=== PATIENT | female | born 1960 | race Caucasian/White ===

== ENCOUNTER 2023-06-13 10:31 | Outpatient (OUT) | payer BC, SELFPAY ==
--- NOTE | 2023-06-13 11:19 | PM.PRESUREVA ---
History of Present Illness History of Present Illness Chief complaint: right kidney stone Narrative: Patient presents for preadmission testing. Please see HPI from Dr. Sosa dated 06/05/2023. Review of Systems ROS Narrative Please see ROS from Dr. Sosa dated 06/05/2023. [facility] Medical History (Updated 06/13/23 @ 11:08 by Joyce Hussein NP) Surgical History (Updated 06/13/23 @ 11:08 by oJyce Hussein NP) Family History (Updated 06/13/23 @ 11:08 by Joyce Hussein NP) Other Family history of breast cancer Family history of heart disease Family history of myocardial infarction Social History (Updated 06/13/23 @ 11:04 by Joyce Hussein NP) Within the past year, how often did you have a drink containing alcohol: monthly or less Smoking status: Current every day smoker What tobacco products do you use: cigarettes Pack-years instructions: Please document either packs per day or cigarettes per day in order for pack years to calculate correctly. If using both packs per day and cigarettes per day, please make sure that they denote the same thing. If they differ, pack-years will calculate based on packs per day. Packs Per Day Cigarettes Per Day 1/4 of a pack 5 1/2 a pack 10 3/4 of a pack 15 1 pack 20 1.5 pack 30 2 packs 40 2.5 packs 50 3 packs 60 Packs per day: 1 Years smoked: 45 Smoking pack-years: 45.00 Non-prescribed substance use: denies use Previous occupational history: [employer] Highest level of school completed/degree received: high school graduate Meds Home Medications and Allergies Home Medications Medication Instructions Recorded Confirmed Type calcium 100 mg capsule mg PO 06/13/23 History cholecalciferol (vitamin D3) 10 10 mcg PO DAILY 06/13/23 06/13/23 History mcg (400 unit) capsule hydrochlorothiazide 12.5 mg capsule 12.5 mg PO QDAY 06/13/23 06/13/23 History krill oil 500 mg capsule mg PO 06/13/23 History multivitamin (Daily Multi-Vitamin 1 tab PO DAILY 06/13/23 06/13/23 History tablet) Allergies Allergy/AdvReac Type Severity Reaction Status Date / Time No Known Drug Allergies Allergy Verified 06/13/23 11:01 Exam Narrative Exam Narrative: Constitutional: Awake, alert, comfortable, well-appearing, nontoxic, interactive, vital signs as charted Head: Normocephalic, atraumatic Neck: Supple, normal appearance, normal range of motion, no meningeal signs, no lymphadenopathy Respiratory: No respiratory distress, breath sounds clear Cardiovascular: Regular rate and rhythm, strong and regular heart tones Abdomen: Nontender, normal bowel sounds, soft, no CVA tenderness Musculoskeletal: Normal gait, no swelling or edema Skin: No rashes or induration, no lesions, only visible skin inspected Neuro: No neurological deficits, normal sensation Psychiatric: Oriented ?3, normal affect Assessment and Plan Assessment and Plan (1) Kidney stones: Plan Right ESWL scheduled with Dr. Sosa 06/20/2023.
[2023-06-13 11:31] LABS: Basophils Absolute Auto 0.1 10^3/uL (0.0-0.1); Basophils Percent Auto 0.8 % (0.2-2.0); Eosinophils Absolute Auto 0.1 10^3/uL (0.0-0.7); Eosinophils Percent Auto 1.3 % (0.9-7.0); Hemoglobin 15.6 g/dL (12.0-16.0); Immature Granulocytes Abs Auto 0.05 10^3/uL (0.00-0.03); Immature Granulocytes Pct Auto 0.5 % (0.0-0.5); Lymphocytes Absolute Auto 1.6 10^3/uL (1.2-3.8); Lymphocytes Percent Auto 16.8 % (20.5-60.0); Mean Corpuscular HGB Conc 33.9 g/dL (29.9-35.2); Mean Corpuscular Hemoglobin 31.5 pg (26.7-34.0); Mean Corpuscular Volume 92.9 fL (81.0-99.0); Mean Platelet Volume 10.1 fL (9.5-13.5); Monocytes Absolute Auto 0.6 10^3/uL (0.3-0.8); Monocytes Percent Auto 5.9 % (1.7-12.0); Neutrophils Percent Auto 74.7 % (43.0-75.0); Platelet Count 303 10^3/uL (150-450); Red Blood Count 4.95 10^6/uL (4.20-5.40); Red Cell Distribution Width 11.9 % (11.0-15.0); White Blood Count 9.3 10^3/uL (4.0-11.0)
[2023-06-13 11:46] LABS: INR 0.97; Prothrombin Time 10.3 sec (9.0-11.6)
[2023-06-13 13:11] LABS: Anion Gap 15.4; BUN Creatinine Ratio 29.3; Calcium 9.8 mg/dL (8.5-10.1); Chloride 99 mmol/L (98-107); Estimated GFR (African America >60 (>=60); Estimated GFR (Non-African Ame >60 (>=60); Glucose 86 mg/dL (74-106); Potassium 4.4 mmol/L (3.5-5.1); Sodium 137 mmol/L (136-145)
== END 2023-06-13 10:32 | disposition home or self-care (01) ==
LOC: PST 10:32
PROVIDERS: Visit Provider Urology
DX: Z01.812 Encounter for preprocedural laboratory examination (principal); N20.0 Calculus of kidney; I95.9 Hypotension, unspecified
CPT/HCPCS: 36415; 80048; 85025; 85610; 85730; G0463

== ENCOUNTER 2023-06-20 12:34 | Observation (INO) | payer BC, SELFPAY ==
[2023-06-13 11:17] VITALS: BP 110/71; PULSE 74; RESP 16; TEMP 36.4; O2SAT 98; BMI 21.3
[2023-06-20] VITALS (25 sets, daily range): BP systolic 100–127; BP diastolic 58–78; PULSE 42–78; RESP 12–24; TEMP 35.9–36.7; O2SAT 94–100; BMI 21.6; BMI 22.3
--- NOTE | 2023-06-20 07:15 | XR_ITS ---
The [address] [address] Patient Name: KE HOGAN MRN: [id number] date: 1960 Sex: F Assigned Patient Location: [facility] Current Patient Location: [facility] Accession/Order Number: [id number] Exam Date: 06/20/2023 07:36 Report Date: 06/20/2023 08:56 At the request of: TAYO TAPIA Procedure: XR abdomen 1V EXAMINATION: XR abdomen 1V HISTORY: kidney stones COMPARISON: No relevant comparison available. FINDINGS: KIDNEY/URETER - RIGHT: A few small calcifications suspected within inferior pole. KIDNEY/URETER - LEFT: A few tiny calcifications suspected within mid body and inferior pole. PELVIS: Multiple pelvic calcifications which are compatible with phleboliths; a distal ureteral stone cannot be completely excluded. Large central calcification favoring a uterine leiomyoma. BOWEL: No abnormal dilation or deviation. BONES: No acute abnormality. OTHER: Negative. No abnormal gaseous collections. XR/XR abdomen 1V IMPRESSION: 1. Suspect bilateral nephrolithiasis. Evaluation is slightly limited by overlying bowel content. 2. Pelvic calcifications favor phleboliths and a calcified uterine leiomyoma. A distal ureteral stone cannot be completely excluded. 3. No comparison studies. Electronically authenticated by: MYRON ROSS Date: 06/20/2023 08:56
[2023-06-20] MEDS: LACTATED RINGER'S SOLUTION 1,000 ML 50 ML IV (08:16)
[2023-06-20] MEDS: CEFAZOLIN SODIUM/DEXTROSE,ISO 1 GM/50 ML IV.SOLN IV (08:31)
--- NOTE | 2023-06-20 09:36 | P.URON_ITS ---
Urology Surgery Operative Note Operative Note Procedure Date: 06/20/23 Time Out Performed: yes Pre-op Diagnosis: right nephrolithiasis Post-op Diagnosis: same as pre-op Procedures performed: 1. Right ESWL. Anesthesia: General-LMA Primary Surgeon: Carmine Sosa Complications: none Estimated blood loss (mL): 0 Findings: right-sided lower pole stone with excellent fragmentation. initial brief run of ventricular tachycardia Intra-Op. Specimens: non- Indications for Procedures: this lady has right sided nephrolithiasis which is nonobstructing. It is about an 8 mm stone burden. She now presents for right ESWL. She has signed an informed consent for this procedure after risks were explained. Some of these risks include bleeding, perinephric hematoma, infection and anesthesia to name a few. Detailed description of Procedure: The patient was brought to the Operating Room and placed on Siemens electromagnetic lithotripsy treatment table in the supine position. SCDs were placed on their lower extremities and turned on and functioning during the entire case. Timeout was done by all parties in the room. We all agreed upon the patient's identification and the planned procedures for this patient. General Anesthesia was then administered via LMA. Treatment head was then brought to the patient's correct side. While using flourscopy the stone was identified and lined up into the crosshairs. We then began applying shocks.we started at power level II.0 and increased to maximum power level of 3.2. Within the 1st 500 shocks, the patient developed some PVCs and then a brief run of ventricular tachycardia. The procedure was stopped. Her position on the table was rotated a bit. She was given some IV lidocaine. We then restarted the proce dure and she had no more ventricular tachycardia. we decided it was not necessary to gait the procedure. Intermittent fluoroscopy showed that the stone steadily fragmented. We applied a total of 3000 shocks to this right renal stone and had excellent fragmentation. The procedure was then terminated. She was then transferred to a [facility] bed and wheeled to PACU in stable condition.
--- NOTE | 2023-06-20 10:03 | PC.NURSE ---
redness to right flank
--- NOTE | 2023-06-20 10:08 | ECG_ITS ---
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
--- NOTE | 2023-06-20 10:08 | CA_ITS ---
Patient: KE HOGAN Exam Date: 06/20/2023 : 1960 Gender:F Ordering : NAN CANTOR Admission #: [id number] Family : ANGELITA RIZO . Order #: [id number] CLICK HERE TO VIEW EXAM ECHOCARDIOGRAM REPORT PROCEDURE: CA ECHO DOPPLER COMPLETE INDICATIONS: Episode of Ventricular tachycardia, smoker COMPARISON: None. DESCRIPTION: COMPLETE ECHOCARDIOGRAM Real-time transthoracic echocardiography with 2D, M-mode, spectral and color flow Doppler performed. QUALITY: Technical quality was good. LEFT VENTRICLE: Normal chamber size. Normal left ventricular wall thickness. Normal systolic function. LV EF: Normal left ventricular ejection fraction, (>55%). DIASTOLIC: Normal diastolic function. ATRIAL SEPTUM: LEFT ATRIUM: Normal chamber size. RIGHT ATRIUM: Mild dilatation. RIGHT VENTRICLE: Normal chamber size. Normal right ventricular systolic function. TRICUSPID VALVE: Normal mobility and thickness. No stenosis with trivial regurgitation. No evidence of pulmonary hypertension. RVSP 33 mmHg MITRAL VALVE: Mildly thickened with normal mobility. No evidence of mitral valve stenosis. There is no mitral annular calcification. Trivial mitral regurgitation. AORTIC VALVE: Normal trileaflet appearance. No visible sclerosis. Normal leaflet mobility. No evidence of aortic valve stenosis. No aortic regurgitation. AORTIC ROOT: Normal diameter and appearance. PULMONIC VALVE: Normal thickness and mobility. No stenosis. No regurgitation. PERICARDIUM: No evidence of pericardial effusion. IVC: Partial collapse with inspirations. IVC is normal in size. PLEURA: CONCLUSION: 1. Normal ventricular function. LVEF is 55 to 60%. 2. No significant valvular dysfunction. 3. Normal right-sided pressures. 4. No pericardial effusion. Adult Echocardiography Procedure Report Left Ventricle LVEDD (3.7 - 5.6 cm): 4.00 cm LVESD (2.2 - 4.0 cm): 2.28 cm LVIVS thickness (0.6 - 1.2 cm): 0.63 cm LVPW thickness (0.5 - 1.0 cm): 0.70 cm e': 0.13 m/s E - e': 6.87 LVOT Max Gradient: 5.73 mm[Hg] LVOT Area (cm2): 1.20 m/s Peak Velocity (LVOT): 1.20 m/s Mean Velocity (LVOT): 0.79 m/s LVOT Diameter 1.98 cm Left Atrium LA Volume Index (2D A2C): 29.52 ml/m2 Left Atrium Systolic Dimension: 2.24 cm Mitral Valve MV E to A Ratio: 1.22 Mitral Valve A-Wave Peak Velocity: 0.72 m/s Mitral Valve E-Wave Peak Velocity: 0.88 m/s Right Ventricle Aorta AO Root Diam: 2.56 cm Aortic Valve AoV Area (Peak Stanislav): 2.07 cm2, 2.07 cm2 AoV Area (VTI): 1.95 cm2, 1.95 cm2 Peak Velocity(Antegrade Flow): 1.77 m/s Peak Gradient(Antegrade Flow): 12.59 mm[Hg] Mean Velocity(Antegrade Flow): 1.15 m/s Mean Gradient(Antegrade Flow): 6.36 mm[Hg] Velocity Time Integral: 39.99 cm Tricuspid Valve Peak Velocity (Regurgitant Flow): 2.48 m/s Pulmonic Valve Peak Velocity: 0.85 m/s Peak Gradient: 3.60 mm[Hg], 2.21 mm[Hg] Right Atrium Right Atrium Systolic Pressure: 50.93 ml, 50.93 ml Dictated by: Michele Alvarez M.D. on 06/20/2023 at 18:18 Approved by: Michele Alvarez M.D. on 06/20/2023 at 18:20
--- NOTE | 2023-06-20 10:12 | PC.NURSE ---
Denies chest pain, SOB OR OTHER DISCOMFORT
--- NOTE | 2023-06-20 10:15 | PC.NURSE ---
CAKE FORMER PRESENT and speaks with pt and her
--- NOTE | 2023-06-20 10:19 | PC.NURSE ---
Denies chest pain, SOB or other discomfort
--- NOTE | 2023-06-20 10:25 | PC.NURSE ---
Denies chest pain, SOB or other discomfort
--- NOTE | 2023-06-20 10:28 | PC.NURSE ---
denies chest pain, SOB or other discomfort
[2023-06-20 10:46] LABS: Anion Gap 10.2; BUN Creatinine Ratio 25.4; Calcium 8.9 mg/dL (8.5-10.1); Carbon Dioxide 30.8 mmol/L (21.0-32.0); Chloride 105 mmol/L (98-107); Estimated GFR (African America >60 (>=60); Estimated GFR (Non-African Ame >60 (>=60); Glucose 92 mg/dL (74-106); Sodium 142 mmol/L (136-145)
[2023-06-20 10:47] LABS: Magnesium 1.9 mg/dL (1.8-2.4)
[2023-06-20 10:56] LABS: Troponin I High Sensitivity 9.4 pg/mL (4.0-51.3)
--- NOTE | 2023-06-20 11:36 | ECG_ITS ---
The [facility] Test Date: 2023-06-20 Pat Name: KE HOGAN Department: Room: [facility] Gender: Female Advocacy Director: : 1960 Requested By: [id number] Order Number: [id number] Reading MD: MARY JO VENTURA Measurements Intervals [place] Rate: 54 P: 73 [place]: 163 QRS: 77 QRSD: 85 T: 51 QT: 421 QTc: 403 Interpretive Statements SINUS BRADYCARDIA WARNING: DATA QUALITY MAY AFFECT INTERPRETATION Compared to ECG 06/20/2023 10:30:15 No significant changes Electronically Signed On 06-21-2023 7:23:01 EDT by MARY JO VENTURA
[2023-06-20 12:15] LABS: Magnesium 2.1 mg/dL (1.8-2.4)
--- NOTE | 2023-06-20 13:23 | P.HP_ITS ---
H&P: HPI History of Present Illness Chief complaint: RIGHT KIDNEY STONE Narrative: patient is a 62-year-old female with past medical history of recurrent kidney stones. Patient reports approximately four days ago she was on an antibiotic for a week for a urinary tract infection. She was also started on hydrochlorothiazide for diuretic prior to procedure.today patient underwent a right ESWL under general anesthesia by Dr. Sosa. Per anesthesia there was a brief run of ventricular tachycardia, this was also recorded in the intraoperative note by Dr. Sosa. Tachycardia began after applying shocks to the stone, patient developed PVCs and a brief run of ventricular tachycardia, the procedure was stopped, the table was rotated and patient was given IV lidocaine. The tachycardia resolved and procedure was restarted. also per information the patient was quite hypotensive during the case, came to the PACU with bradycardia with heart rate in the 50s. Decision was then made to consult cardiology for further plan of care. Cardiology did come to the PACUto evaluate the patient and was suggested that she be admitted overnight for observation. Patient then was transferred to [facility] for observation. I went to evaluate the patient postoperatively in Medr unit, she denies any current issues. Patient is fully alert denies any chest pain heart palpitations reports she has no prior history of heart issues. 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 She has had several kidney stones in the past that required surgical intervention but had no other issues to report. She was on an antibiotic of which is unnamed (she can't remember what that was) stopped approximately 3-4 days prior to the procedure. She also started hydrochlorothiazide, she takes a vitamin D supplement is a nonsmoker and otherwise healthy. Review of Systems ROS Narrative ROS: a complete review of systems were reviewed with patient and are positive as below or listed in History of Chief Complaint. General: no fever, chills, night sweats Head: no headache, trauma, visual changes, nausea or vomiting Skin: no reported rashes, itching or sores Eyes: no blurriness of vision Ears: no reported hearing loss, vertigo, earache, or tinnitus Throat: no sore throat, hoarseness, swelling of neck, or tongue pain Heart: no chest pain Lungs: no shortness of breath or cough GI: no diarrhea or vomiting/nausea Urinary: no urinary urgency, frequency or pain Neuro: no numbness or tingling HEM: no bleeding issues or bruising ENDO: no thyroid problems Psych: no anxiety or depression PFSH PFSH Medical History (Updated 06/20/23 @ 13:33 by Samantha Justin DO) Surgical History Family History Other Family history of breast cancer Family history of heart disease Family history of myocardial infarction Social History Within the past year, how often did you have a drink containing alcohol: monthly or less Smoking status: Current every day smoker What tobacco products do you use: cigarettes Pack-years instructions: Please document either packs per day or cigarettes per day in order for pack years to calculate correctly. If using both packs per day and cigarettes per day, please make sure that they denote the same thing. If they differ, pack- years will calculate based on packs per day. Packs Per Day Cigarettes Per Day 1/4 of a pack 5 1/2 a pack 10 3/4 of a pack 15 1 pack 20 1.5 pack 30 2 packs 40 2.5 packs 50 3 packs 60 Packs per day: 1 Years smoked: 45 Smoking pack-years: 45.00 Non-prescribed substance use: denies use Previous occupational history: [employer] Highest level of school completed/degree received: high school graduate Do you think of yourself as: straight/heterosexual Gender Identity: female Meds Home Medications and Allergies Home Medications Medication Instructions Recorded Confirmed Type calcium 100 mg capsule 100 mg PO QDAY 06/13/23 06/20/23 History cholecalciferol (vitamin D3) 10 10 mcg PO DAILY 06/13/23 06/20/23 History mcg (400 unit) capsule hydrochlorothiazide 12.5 mg capsule 12.5 mg PO QDAY 06/13/23 06/20/23 History krill oil 500 mg capsule 500 mg PO QDAY 06/13/23 06/20/23 History multivitamin (Daily Multi-Vitamin 1 tab PO DAILY 06/13/23 06/20/23 History tablet) Allergies Allergy/AdvReac Type Severity Reaction Status Date / Time No Known Drug Allergies Allergy Verified 06/13/23 11:01 Exam Narrative Exam Narrative: General: Patient is alert, and oriented to person, place and time with normal affect, proper hygiene Skin: no visible rashes, or ulcers Head: atraumatic, acephalic Eyes: PERRLA, no nystagmus present, conjunctiva clear, no scleral icterus Ears: normal gross auditory acuity Nose: symmetric, no discharge, no maxillary or frontal sinus tenderness Mouth/Throat: no erythema, exudate, or tonsillar enlargement, normal dentition Neck: no masses palpated, normal thyroid, no JVD or audible carotid bruits Heart: Normal rate and rhythm, no murmurs/rubs/gallops Lungs: no audible wheezes, crackles and normal breath sounds all lung hassan Abdomen: Normal audible bowel sounds, no distension, No palpable masses, no organomegaly, no rebound/guarding/ or rigidity Musculoskeletal: ROM is limited due to being in hospital bed, no swelling bilateral lower extremities Vascular: Normal carotid, radial, femoral, posterior tibial, and dorsalis pedis pulses Lymph: no supraclavicular, axillary, or anterior/posterior cervical adenopathy Neuro: CN II-X grossly intact, normal sensation upper and lower extremities Constitutional Vital Signs, click to edit/add: Last Vital Signs Temp 98.0 F 06/20/23 12:17 Pulse 56 L 06/20/23 12:17 Resp 18 06/20/23 12:17 BP 127/76 06/20/23 12:17 Pulse Ox 97 06/20/23 12:17 O2 Del Method Room Air 06/20/23 12:17 Results Labs Labs: [facility] 06/20/23 10:18 Sodium 142 Potassium 4.0 Chloride 105 Carbon Dioxide 30.8 BUN 16.0 Creatinine 0.63 Glucose 92 Calcium 8.9 Assessment and Plan Assessment and Plan (1) Tachycardia with heart rate 100-120 beats per minute: Assessment and Plan: cardiology will be consulted for further workup and input, echocardiogram, CBC CMP phosphorus and magnesium as well as thyroid labs will be checked.EKGs ?2 both showed sinus bradycardia with heart rate in the 50s, troponins will also be checked 1st one was normal range. Patient will need a Holter monitor, and close outpatient follow-up. could be from persistent hypotension, right ESWL but have to exclude [place] cause (2) Hypotension: Assessment and Plan: will provide IVF until eating and drinking normally, hold hctz (3) S/P extracorporeal shock wave therapy: Assessment and Plan: pain management and restrictions managed by Urology (4) Kidney stones: Plan patient is a full code admitted to telemetry in observation for further plan of care and cardiology evaluation.
[2023-06-20 14:19] LABS: Troponin I High Sensitivity 9.7 pg/mL (4.0-51.3)
[2023-06-20] MEDS: LACTATED RINGER'S SOLUTION 1,000 ML 125 ML IV ×2 (15:24→23:09)
--- NOTE | 2023-06-20 15:55 | PM.CACN ---
History of Present Illness History of Present Illness Consult date: 06/20/23 Requesting physician: Carmine Sosa Chief complaint: Intraoperative VT Narrative: Ms. Rios is a 62-year-old female with past medical history of recurrent kidney stones. Patient underwent a right ESWL under general anesthesia by Dr. Sosa, and per report, there was a was a brief run of ventricular tachycardia. Tachycardia began after applying shocks to the stone, patient developed PVCs and a brief run of ventricular tachycardia, the procedure was stopped, the table was rotated and patient was given IV lidocaine. The tachycardia resolved and procedure was restarted. Patient was also reportedly bradycardic and hypotensive following event. Cardiology was asked to evaluate patient. Patient was evaluated in PACU. She adamantly denies any cardiac complaints or concerns. She denies any chest pain or shortness of breath. She denies any lower extremity edema, orthopnea, or PND. She denies any near syncope or syncope. Patient denies any previous cardiac history. No history of arrythmia. No history of CAD, PVD, or SC. No history of CHF. She is very functional and denies any exertional sytmpoms. Of note: no strip of arrythmia was available for my review. Review of Systems ROS Status of ROS 10 or more systems reviewed and unremarkable except as noted in history and below [facility] Medical History (Updated 06/20/23 @ 13:33 by Samantha Justin DO) Surgical History Family History Other Family history of breast cancer Family history of heart disease Family history of myocardial infarction Social History Within the past year, how often did you have a drink containing alcohol: monthly or less Smoking status: Current every day smoker What tobacco products do you use: cigarettes Pack-years instructions: Please document either packs per day or cigarettes per day in order for pack years to calculate correctly. If using both packs per day and cigarettes per day, please make sure that they denote the same thing. If they differ, pack-years will calculate based on packs per day. Packs Per Day Cigarettes Per Day 1/4 of a pack 5 1/2 a pack 10 3/4 of a pack 15 1 pack 20 1.5 pack 30 2 packs 40 2.5 packs 50 3 packs 60 Packs per day: 1 Years smoked: 45 Smoking pack-years: 45.00 Non-prescribed substance use: denies use Previous occupational history: [employer] Highest level of school completed/degree received: high school graduate Do you think of yourself as: straight/heterosexual Gender Identity: female Meds Home Medications and Allergies Home Medications Medication Instructions Recorded Confirmed Type calcium 100 mg capsule 100 mg PO QDAY 06/13/23 06/20/23 History cholecalciferol (vitamin D3) 10 10 mcg PO DAILY 06/13/23 06/20/23 History mcg (400 unit) capsule hydrochlorothiazide 12.5 mg capsule 12.5 mg PO QDAY 06/13/23 06/20/23 History krill oil 500 mg capsule 500 mg PO QDAY 06/13/23 06/20/23 History multivitamin (Daily Multi-Vitamin 1 tab PO DAILY 06/13/23 06/20/23 History tablet) Allergies Allergy/AdvReac Type Severity Reaction Status Date / Time No Known Drug Allergies Allergy Verified 06/13/23 11:01 Exam Constitutional Vital Signs, click to edit/add: Last Vital Signs Temp 98 F 06/20/23 14:45 Pulse 70 06/20/23 15:51 Resp 14 06/20/23 14:45 BP 115/67 06/20/23 14:45 Pulse Ox 98 06/20/23 14:45 O2 Del Method Room Air 06/20/23 14:45 Documenting provider has reviewed patient's vital signs: yes Common normals: no apparent distress, average body habitus, oriented x3 and healthy appearing Orientation/consciousness: Yes awake and Yes oriented to person [facility] Common normals: normocephalic Head and scalp: atraumatic Nose: external nose normal External ear: external ears normal Respiratory Common normals: normal respiratory effort, no use of accessory muscles and clear to auscultation bilaterally Cardio Common normals: no JVD, regular rate, regular rhythm, S1 normal heart sound, S2 normal heart sound, no gallops and no murmurs Rate: regular rate Rhythm: regular rhythm GI Common normals: Normal to inspection, nondistended, normoactive bowel sounds present and soft to palpation Extremity Common normals: normal to inspection and no clubbing, cyanosis or edema Neuro Common normals: oriented x3, moves all extremities and no focal motor deficits Results Labs and Meds Lab results: Comprehensive Metabolic Panel 06/20/23 Range/Units 10:18 Sodium 142 (136-145) mmol/L Potassium 4.0 (3.5-5.1) mmol/L Chloride 105 (98-107) mmol/L Carbon Dioxide 30.8 (21.0-32.0) mmol/L BUN 16.0 (7.0-18.0) mg/dL Creatinine 0.63 (0.55-1.02) mg/dL Glucose 92 (74-106) mg/dL Calcium 8.9 (8.5-10.1) mg/dL Intake and Output 06/19/23 06/20/23 06/20/23 23:59 07:59 15:59 Intake Total 2100 / 2100 Output Total 300 / 300 Balance 1800 / 1800 Intake: Other 1050 / 1050 IV 1050 / 1050 Cefazolin Sodium/Dextrose,Iso 1 50 / 50 gm In 50 ml @ 100 mls/hr IV ONCE ONE Rx#:[id number] Lactated Ringer's Solution 1, 1000 / 1000 000 ml @ 50 mls/hr IV ONCE ONE Rx#:[id number] Output: Urine 300 / 300 Other: Weight 59 kg 60.781 kg Patient Weight 06/21/23 07:59 Weight 60.781 kg Imaging and Cardiology Echo: pending Assessment and Plan Assessment and Plan (1) Tachycardia with heart rate 100-120 beats per minute: (2) Hypotension: (3) S/P extracorporeal shock wave therapy: (4) Kidney stones: Plan -STAT BMP, magnesium level to rule out electorlyte abnormality -Would recommend overnight observation to ensure no recurrence of arrythmia. Continuous cardiac telemetry. -Echo to assess LVEF, wall motion, and valvular function -Trend Troponins x 3 to rule out ischemia -Please discuss with cardiology pending results of testing -Consider 30 day event monitor at the time of discharge to rule out reccurent arrythmia Thank you for allowing us to participate in the care of this patient. Please do not hesitate to contact us with any quesitons. Nan Cantor MD [place] [facility]
[2023-06-20 16:35] LABS: Troponin I High Sensitivity 7.9 pg/mL (4.0-51.3)
[2023-06-20 19:02] LABS: Troponin I High Sensitivity 6.6 pg/mL (4.0-51.3)
[2023-06-21] VITALS (7 sets, daily range): BP systolic 113; BP diastolic 68; PULSE 51–62; RESP 18; TEMP 36.8; O2SAT 97
[2023-06-21 05:08] LABS: Basophils Absolute Auto 0.1 10^3/uL (0.0-0.1); Basophils Percent Auto 0.4 % (0.2-2.0); Eosinophils Absolute Auto 0.1 10^3/uL (0.0-0.7); Hematocrit 38.7 % (36.0-48.0); Hemoglobin 12.8 g/dL (12.0-16.0); Immature Granulocytes Abs Auto 0.07 10^3/uL (0.00-0.03); Immature Granulocytes Pct Auto 0.6 % (0.0-0.5); Lymphocytes Absolute Auto 1.8 10^3/uL (1.2-3.8); Lymphocytes Percent Auto 14.4 % (20.5-60.0); Mean Corpuscular HGB Conc 33.1 g/dL (29.9-35.2); Mean Corpuscular Hemoglobin 31.7 pg (26.7-34.0); Mean Corpuscular Volume 95.8 fL (81.0-99.0); Mean Platelet Volume 10.6 fL (9.5-13.5); Monocytes Absolute Auto 0.9 10^3/uL (0.3-0.8); Monocytes Percent Auto 6.9 % (1.7-12.0); Neutrophils Absolute Auto 9.5 10^3/uL (1.4-6.5); Neutrophils Percent Auto 76.7 % (43.0-75.0); Platelet Count 253 10^3/uL (150-450); Red Blood Count 4.04 10^6/uL (4.20-5.40); Red Cell Distribution Width 11.7 % (11.0-15.0); White Blood Count 12.4 10^3/uL (4.0-11.0)
[2023-06-21 05:51] LABS: Alanine Aminotransferase 24 U/L (14-59); Alkaline Phosphatase 56 U/L (46-116); Anion Gap 7.1; Aspartate Amino Transferase 20 U/L (15-37); BUN Creatinine Ratio 30.9; Bilirubin Total 0.2 mg/dL (0.2-1.0); Calcium 8.6 mg/dL (8.5-10.1); Carbon Dioxide 28.9 mmol/L (21.0-32.0); Chloride 108 mmol/L (98-107); Estimated GFR (African America >60 (>=60); Estimated GFR (Non-African Ame >60 (>=60); Globulin 2.4 g/dL; Glucose 104 mg/dL (74-106); Phosphorus 4.3 mg/dL (2.6-4.7); Sodium 140 mmol/L (136-145); Thyroid Stimulating Hormone 0.247 uIU/mL (0.358-3.740); Total Protein 5.4 g/dL (6.4-8.2)
[2023-06-21 06:03] LABS: Albumin Globulin Ratio 1.3
--- NOTE | 2023-06-21 10:17 | SWNOTE1 ---
SW provided pt and with a list of PCP's in the [place] area. SW encouraged pt to call and see who is taking patient's. Pt and would like to do some research on physicians at home and then they will decide. SW to follow as needed.
--- NOTE | 2023-06-21 10:26 | P.DS_ITS ---
DS: Providers Provider Date of admission: 06/20/23 12:34 Primary care physician: Non-Staff Physician, Attending physician on admission: Samantha Justin Consults: 06/20/23 12:34 Consult to Cardiology Routine Consulting Provider: Hospitalist Reason for consultation: tachycardia Has provider been notified: Yes Discharging clinician: Samantha Justin DS: Diagnosis Discharge Diagnosis (1) Tachycardia with heart rate 100-120 beats per minute: (2) Hypotension: (3) S/P extracorporeal shock wave therapy: (4) Kidney stones: DS: Summary Hospital Course Hospital Course: patient is a 62-year-old female with past medical history of recurrent kidney stones. Patient reports approximately four days ago she was on an antibiotic for a week for a urinary tract infection. She was also started on hydrochlorothiazide for diuretic prior to procedure.today patient underwent a right ESWL under general anesthesia by Dr. Sosa. Per anesthesia there was a brief run of ventricular tachycardia, this was also recorded in the intraoperative note by Dr. Sosa. Tachycardia began after applying shocks to the stone, patient developed PVCs and a brief run of ventricular tachycardia, the procedure was stopped, the table was rotated and patient was given IV lidocaine. The tachycardia resolved and procedure was restarted. also per information the patient was quite hypotensive during the case, came to the PACU with bradycardia with heart rate in the 50s. Decision was then made to consult cardiology for further plan of care. Cardiology did come to the PACUto evaluate the patient and was suggested that she be admitted overnight for observation. Patient then was transferred to [facility] for observation. I went to evaluate the patient postoperatively in MedSur unit, she denies any current issues. Patient is fully alert denies any chest pain heart palpitations reports she has no prior history of heart issues. 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 She has had several kidney stones in the past that required surgical intervention but had no other issues to report. She was on an antibiotic of which is unnamed (she can't remember what that was) stopped approximately 3-4 days prior to the procedure. She also started hydrochlorothiazide, she takes a vitamin D supplement is a nonsmoker and otherwise healthy. Echo results were normal, No events on telemetry overnight. Electrolytes look great, troponins normal range. She is doing well this morning no issues. I will have her stop the hctz, this may be contributing more to her hypotension. She will follow up in cardiology clinic for 30 day event monitor per note, also encouraged her to find a PCP to recheck thyroid levels in a few weeks. Patient discharged home today in stable condit ion. Status at Discharge Functional status at discharge: independent ambulation Overall status at discharge: patient is back to baseline Time Spent with Patient Time attestation: Total time spent providing and/or coordinating discharge services: Exam Narrative Exam Narrative: General: Patient is alert, and oriented to person, place and time with normal affect, proper hygiene Skin: no visible rashes, or ulcers Head: atraumatic, acephalic Eyes: PERRLA, no nystagmus present, conjunctiva clear, no scleral icterus Neck: no masses palpated, normal thyroid, no JVD or audible carotid bruits Heart: Normal rate and rhythm, no murmurs/rubs/gallops Lungs: no audible wheezes, crackles and normal breath sounds all lung hassan Abdomen: Normal audible bowel sounds, no distension, No palpable masses, no organomegaly, no rebound/guarding/ or rigidity Musculoskeletal: muscle atrophy noted, ROM is limited due to being in hospital bed, no swelling bilateral lower extremities Vascular: Normal carotid, radial, femoral, posterior tibial, and dorsalis pedis pulses Lymph: no supraclavicular, axillary, or anterior/posterior cervical adenopathy Neuro: CN II-X grossly intact, normal sensation upper and lower extremities Constitutional Vital Signs, click to edit/add: Last Vital Signs Temp 98.2 F 06/21/23 05:07 Pulse 62 06/21/23 10:07 Resp 18 06/21/23 07:49 BP 113/68 06/21/23 05:07 Pulse Ox 97 06/21/23 05:07 O2 Del Method Room Air 06/21/23 05:07 DS: Data Data Completed and Pending Labs on day of discharge: Labs from last 24 hours 06/21/23 06/20/23 06/20/23 04:34 18:20 16:10 WBC 12.4 H RBC 4.04 L Hgb 12.8 Hct 38.7 MCV 95.8 MCH 31.7 MCHC 33.1 RDW 11.7 Plt Count 253 MPV 10.6 Neut % (Auto) 76.7 H Lymph % (Auto) 14.4 L Wise % (Auto) 6.9 Eos % (Auto) 1.0 Baso % (Auto) 0.4 Neut # (Auto) 9.5 H Lymph # (Auto) 1.8 Wise # (Auto) 0.9 H Eos # (Auto) 0.1 Baso # (Auto) 0.1 Abs Immat Gran (auto) 0.07 H Imm/Tot Granulo (auto) 0.6 H Sodium 140 Potassium 4.0 Chloride 108 H Carbon Dioxide 28.9 Anion Gap 7.1 BUN 21.0 H Creatinine 0.68 Est GFR ( Amer) >60 Est GFR (Non-Af Amer) >60 BUN/Creatinine Ratio 30.9 Glucose 104 Calcium 8.6 Phosphorus 4.3 Magnesium Total Bilirubin 0.2 AST 20 ALT 24 Alkaline Phosphatase 56 Troponin I High Sens 6.6 7.9 Total Protein 5.4 L Albumin 3.0 L Globulin 2.4 Albumin/Globulin Ratio 1.3 TSH 0.247 L 06/20/23 06/20/23 06/20/23 13:40 11:59 10:18 WBC RBC Hgb Hct MCV MCH MCHC RDW Plt Count MPV Neut % (Auto) Lymph % (Auto) Wise % (Auto) Eos % (Auto) Baso % (Auto) Neut # (Auto) Lymph # (Auto) Wise # (Auto) Eos # (Auto) Baso # (Auto) Abs Immat Gran (auto) Imm/Tot Granulo (auto) Sodium 142 Potassium 4.0 Chloride 105 Carbon Dioxide 30.8 Anion Gap 10.2 BUN 16.0 Creatinine 0.63 Est GFR ( Amer) >60 Est GFR (Non-Af Amer) >60 BUN/Creatinine Ratio 25.4 Glucose 92 Calcium 8.9 Phosphorus Magnesium 2.1 1.9 Total Bilirubin AST ALT Alkaline Phosphatase Troponin I High Sens 9.7 9.4 Total Protein Albumin Globulin Albumin/Globulin Ratio TSH Discharge Plan Discharge Disposition: Home, Self-Care Condition: Good Discharge Medications: Continued calcium 100 mg capsule 100 mg PO QDAY multivitamin [Daily Multi-Vitamin] Tablet 1 tab PO DAILY cholecalciferol (vitamin D3) 10 mcg (400 unit) capsule 10 mcg PO DAILY krill oil 500 mg capsule 500 mg PO QDAY Discontinued hydrochlorothiazide 12.5 mg capsule 12.5 mg PO QDAY Activity: resume usual activities as tolerated Diet: regular diet Diet Detail: REGULAR Print Language: Irish Patient Instructions: Lithotripsy (GEN) Activity Restrictions/Additional Instructions: SEDATION - For the next 24 hours: * Take it easy and rest today. You do not need to stay in bed, but avoid strenuous activities. * You may resume normal activities tomorrow. * DO NOT drive a car. * DO NOT make any important personal or business decisions or sign any legal documents. * DO NOT operate machinery such as power tools, lawn mowers, snow blowers, sewing machines, etc. * DO NOT stay alone. NOTIFY DOCTOR IF: * Any excessive or progressive pain not helped by the pain medication ordered. * An inability to urinate within 12 hours of discharge from the hospital. * If you have any questions, problems or concerns not listed. * An oral temperature of 101 degrees fahrenheit or higher. STRAIN URINE FOR 2 WEEKS AND TAKE ANY STONES OBTAINED TO NEXT OFFICE VISIT Follow Up Appointments: Office will call for her next step Patient is to call the [facility] Providers Referral Line [phone] to find a provider in the [place] area who is accepting new patients and to start that process with insurance, etc. Cardiology appt. 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
--- NOTE | 2023-06-21 10:38 | CM.NOTE ---
Rounds made with juno Schrader to discharge to home. Pt will need to find primary care physician and make f/u appt and will schedule f/u with cardiology.
--- NOTE | 2023-06-25 12:16 | CM.DCFOLLOWU ---
Person spoke with: patient How are you feeling? well How is your pain? no pain Did you understand your discharge instructions? yes Do you have any questions about your discharge instructions? no Were you given any prescriptions at discharge? no Were you able to get your prescriptions filled? N/A Do you understand how to take your medications as ordered? yes Do you have any questions about your follow up appointment and do you plan to keep your follow up appointment? no questions. Has follow up with cardiology on July 01, then she will work on getting a PCP. Is there anything else that you would like to discuss? no Questions/Comments/Concerns/Other:
== END 2023-06-21 11:14 | disposition home or self-care (01) ==
LOC: SURGOUT 06-21 07:37 → MS 06-21 07:37
PROVIDERS: Anesthesiology; Internal Medicine Cardiovascular Disease; Urology; Admitting Provider Family Medicine; Visit Provider Family Medicine
PROC: (CPT 50590; principal; 2023-06-20 08:30)
DX: N20.0 Calculus of kidney (principal); R00.0 Tachycardia, unspecified; I95.9 Hypotension, unspecified; Z87.442 Personal history of urinary calculi; Z87.440 Personal history of urinary (tract) infections; Z79.899 Other long term (current) drug therapy; F17.210 Nicotine dependence, cigarettes, uncomplicated
CPT/HCPCS: 50590; 36415; 74018; 80048; 80053; 83735; 84100; 84443; 84484; 85025; 93005; 93306; 94640; 94761; 96360; 96361; 99406; G0378; J2704

== ENCOUNTER 2023-07-01 12:11 | Outpatient (OUT) | payer BC, SELFPAY ==
[2023-07-01 12:48] LABS: Magnesium 2.2 mg/dL (1.8-2.4)
== END 2023-07-01 12:12 | disposition home or self-care (01) ==
LOC: LAB 12:12
PROVIDERS: Visit Provider Nurse Practitioner Acute Care
DX: I47.29 Other ventricular tachycardia (principal)
CPT/HCPCS: 36415; 83735

== ENCOUNTER 2023-09-23 08:30 | Outpatient (OUT) | payer BC, SELFPAY ==
--- NOTE | 2023-09-23 | NM_ITS ---
Patient Name: KE HOGAN MR#: [id number] : 1960 Exam Date: 09/23/2023 Ordering Doctor: KIMBERLI ARANDA RADIOLOGY REPORT PROCEDURE: NM RAY PERF SPECT REST STR COMPARISON: None. INDICATIONS: VENTRICULAR TACHYCARDIA, UNSPECIFIED TECHNIQUE: Exam Description: Stress/Rest one day protocol gated SPECT Rest Imagin.5 mCi Tc-99m Cardiolite IV on 09/23/2023 Stress Imaging 30.9 mCi Tc-99m Cardiolite IV on 09/23/2023 Exercise Protocol: Tyler Heart Rate (bpm): Rest: 55 Max: 146 PMHR: 92 Blood Pressure: Rest: 128/80 Max: 186/80 Exercise Time: Minutes: 10 Seconds: 46 Stage Reached: Stage: 4 Mets 13.4 Symptoms: Rest and peak stress ECG findings were pending and the exercise portion of the study was pending per attending physician Dr. TORRE . For more details please see separate cardiac stress test report. FINDINGS: QUALITY OF STUDY: Excellent. PERFUSION DEFECT: None. LOCATION: N/A SIZE: N/A. SEVERITY: N/A. TYPE: N/A. WALL MOTION: Normal. LV SIZE: Normal. 67 mL. TID / TCD: None; 0.9 LVEF: Normal. Calculated EF 69%. SUMMARY: Myocardial perfusion imaging study is NORMAL. CONCLUSION: 1. Normal nuclear medicine myocardial perfusion scan. Dictated by: Pérez Gaffney M.D. on 09/24/2023 at 09:05 Approved by: Pérez Gaffney M.D. on 09/24/2023 at 09:09
--- NOTE | 2023-09-23 | PCN_ITS ---
CARDIAC STRESS TEST Requesting Physician: mSith Quevedo NP Procedure Date: 09/23/2023 REASON FOR TEST: Ventricular tachycardia. Patient did exercise treadmill stress test with a Tyler protocol with a resting heart rate of 59 beats per minute, blood pressure 128/80 mm/Hg. She exercised to a maximum time of 10 minutes and 46 seconds, achieving stage 4 with 13.4 METS. Maximum heart rate was 146 beats per minute, which was 92% of the predicted heart rate, with a blood pressure 186/80 mm/Hg. The reason for termination was fatigue. Heart rate recovery was normal. On reviewing the study, at baseline, patient was noted to have sinus bradycardia but normal intervals and normal axis. With exercise, patient was noted to have subtle ST segment depression. There was a PVC that was noted in stage 5, but other than that, no ischemic changes or arrhythmias were noted during recovery. IMPRESSION: 1. Baseline EKG that is normal with normal intervals with evidence of ischemic changes seen in the inferolateral leads with exercise. 2. No arrhythmias except isolated PVC seen in stage 5. 3. No evidence of any AV block or tachycardia seen with exercise. MTDD
== END 2023-09-23 08:31 | disposition home or self-care (01) ==
LOC: NM 08:30
PROVIDERS: Visit Provider Nurse Practitioner
DX: I47.29 Other ventricular tachycardia (principal)
CPT/HCPCS: 78452; 93017; A9500

== ENCOUNTER 2024-12-07 07:06 | Outpatient (OUT) | payer BC, SELFPAY ==
--- NOTE | 2024-12-07 | XR_ITS ---
The [address] [address] Patient Name: KE HOGAN MRN: [id number] date: 1960 Sex: F Assigned Patient Location: [place] Current Patient Location: [place] Accession/Order Number: [id number] Exam Date: 12/07/2024 07:30 Report Date: 12/07/2024 16:26 At the request of: JARAD SANCHEZ Procedure: XR abdomen 1V EXAM: XR abdomen 1V HISTORY: Kidney stone COMPARISON: X-ray abdomen 06/20/2023 FINDINGS: Supine imaging abdomen and pelvis performed. Gas and stool are noted through the colon in the pelvis. No dilated loops of bowel. There is a punctate calcification projected over the right renal fossa. 3 mm calculus is present in the left renal fossa. There are several calcifications in the anatomic pelvis which appear similar to prior, likely representing phleboliths. Additional course calcifications in the pelvis present likely represents calcified fibroid. Degenerative changes noted in the spine. XR/XR abdomen 1V IMPRESSION: Bilateral nephrolithiasis. Electronically authenticated by: MYRON BARKLEY Date: 12/07/2024 16:26
--- NOTE | 2024-12-07 | US_ITS ---
The [address] [address] Patient Name: KE HOGAN MRN: [id number] date: 1960 Sex: F Assigned Patient Location: Current Patient Location: [place] Accession/Order Number: [id number] Exam Date: 12/07/2024 07:05 Report Date: 12/07/2024 16:26 At the request of: JARAD SANCHEZ Procedure: US renal BI EXAM: US renal BI HISTORY: Kidney stone COMPARISON: None. TECHNIQUE: Ultrasound imaging of the kidneys and bladder was performed. FINDINGS: The right kidney measures approximately 11.1 x 5.3 x 4.9 cm. No hydronephrosis. Vascular flow is noted to the kidney. A few echogenic foci are present. The left kidney measures approximately 10.2 x 5.8 x 5.2 cm. No hydronephrosis. Vascular flow is noted to the kidney. A few echogenic foci are present. The bladder is partially distended with urine with a calculated volume of 157 mL. No focal wall abnormality. US/US renal BI IMPRESSION: No hydronephrosis in either kidney. Suspected bilateral nephrolithiasis. Electronically authenticated by: MYRON BARKLEY Date: 12/07/2024 16:26
--- OUTSIDE RECORDS SUMMARY | 2024-12-07 07:09 | XMS_ITS | CCD ---
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 Name Role Phone NONE, XXXX Primary Care Physician Unavailab Shruthi An Unavailable Unavailable WILLIE ., DR CR Attending Unavailable WILLIE ., DR CR Consulting Unavailable WILLIE ., DR CR Admitting Unavailable REQUEST, DR HARRISON LISTED Primary Care Unavaila LETITIA Figueredo II Consulting Unavailable MD Melina Krueger Primary Care Provider DO Radha Zambranoe Luis M Attending Provider Yelitza Zambrano Unavailable DO Joby Yelitza B Primary Care Provider JOCELYN GAMEZ Attending Unavailable KIMBERLI ARANDA Attending Unavailable SERGIO GAMBLE Attending Unavailable YELITZA ZAMBRANO Primary Care Physician DO Joby Yelitza B Primary Care Provider DO Joby Yelitza B Attending Provider Joby FLETCHER Yelitza B Primary Care Provider Joby FLETCHER Yelitza Luis M Attending Provider [facility] Juan Carlos FLETCHER Attending Provider [phone] Pedro Tomlin MD Attending Provider Joby FLETCHER Yelitza B Primary Care Provider [phone] RELIN SANCHEZ Attending Unavailab REGAN ThorntonANNE Primary Care Unavailable ERLIN SANCHEZ Admitting Unavailab ERLIN Robertson Attending Unavailab REGAN ThorntonANNE Primary Care Unavailable Emile Vasquez Attending Unavailable ZAMBRANO, YELITZA Primary Care Unavailable ZAMBRANO, YELITZA Primary Care Unavailable ERLIN SANCHEZ Attending Unavailab ERLIN Robertson Attending Unavailab wiliam ZAMBRANO, YELITZA Primary Care Unavailable Tayo SOSA Attending Unavailable Kuns - [facility], Juan Carlos Attending Unavailable Kuns - [facility], Juan Carlos Admitting Unavailable Zambrano, Yelitza B Primary Care Unavailable Zambrano, Yelitza B Primary Care Unavailable Kuns - [facility], Juan Carlos Admitting Unavailable Kuns - [facility], Juan Carlos Attending Unavailable Kuns - [facility], Juan Carlos Attending Unavailable Zambrano, Yelitza B Primary Care Unavailable Kuns - [facility], Juan Carlos Admitting Unavailable Pedro Tomlin Admitting Unavailable Pedro Tomlin Attending Unavailable Zambrano, Yelitza B Primary Care Unavailable Kuns - [facility], Juan Carlos Attending Unavailable Zambrano, Yelitza B Primary Care Unavailable Kuns - [facility], Juan Carlos Admitting Unavailable Zambrano, Yelitza B Primary Care Unavailable Zambrano, Yelitza B Attending Unavailable Zambrano, Yelitza B Admitting Unavailable Kuns - [facility], Juan Carlos Attending Unavailable Kuns - [facility], Juan Carlos Admitting Unavailable Zambrano, Yelitza B Primary Care Unavailable Kuns - [facility], Juan Carlos Attending Unavailable Kuns - [facility], Juan Carlos Admitting Unavailable Zambrano, Yelitza B Primary Care Unavailable Medications Current Medications Medication Drug Class(es) Dates Sig (Normalized) Sig (Original) acetaminophen 325 mg / HYDROcodone bitartrate 5 mg oral tablet (11 sources) Opioid Agonist Start: 02-06-2023 Mazon 325 mg-5 mg oral tablet 1 tab(s), Oral, q4hr for pain, 12 tab(s), Refill(s) 0, [facility]/pharmacy #[id number], 165.1, cm, 02/06/23 11:15:00 EDT, Height/Length Dosing, 64, kg, 02/06/23 11:15:00 EDT, Weight Dosing Start Date: 02/06/23 Status: Ordered Calcium (18 sources) Phosphate Binder, Calcium Start: 08-31-2024 take 1 tablet by mouth once daily Nh-C9-Zrz-Zinc-Co e-Zfby-Xvvwd 600 mg calcium- 800 unit-40 mg tablet,chewable Active 1 TAB PO Daily August 31, 2024 12:00am Start: 05-17-2016 take 1 tablet by tayler th once daily Calcium 600+D 1 tab, Oral, Daily, Refill(s) 0, Prophylaxis Start Date: 05/17/16 Status: Ordered Calcium 600+D3 600-400 MG-UNIT (1 source) take 1 tablet by tayler th once daily at mealtime Calcium 600+D3 600-400 MG-UNIT 1 tablet with food Orally Once a day Active Fish,Bora,Flax Oils-Om3,6,9no1 ([place] 3-6-9) 1,200 mg capsule (7 sources) Start: 08-31-2024 take 1 capsule by mouth once daily Fish,Bora,Flax Oils-Om3,6,9no1 ([place] 3-6-9) 1,200 mg capsule Active 1 CAP PO Daily August 31, 2024 12:00am Start: 08-31-2024 Fish,Bora,Flax Oils-Om3,6,9no1 ([place] 3-6-9) 1,200 mg capsule Active CAP PO August 31, 2024 12:00am hydroCHLOROthiazide 12.5 mg oral capsule (2 sources) Thiazide Diuretic Start: 06-05-2023 End: 05-30-2024 take 1 capsule by mouth once daily hydrochlorothiazide 12.5 mg Cap 12.5 mg = 1 cap(s), Oral, Daily, X 90 day(s), # 90 cap(s), Refills(s) 3, Pharmacy: [facility]/pharmacy #[id number], 165, cm, 06/05/23 10:25:00 EDT, Height/Length Dosing, 59.9, kg, 06/05/23 10:25:00 EDT, Weight Dosing Start Date: 06/05/23 Stop Date: 05/30/24 Status: Ordered Multivitamin, Therapeutic w/ Minerals (11 sources) Start: 05-17-2016 take 1 tablet by mouth once daily Multivitamin, Therapeutic w/ Minerals 1 tab(s), Oral, Daily, Refill(s) 0, Prophylaxis Start Date: 05/17/16 Status: Ordered Llvnuxamqtbf-Otmfucva-I utein (Multivitamin 50 Plus) tablet (9 sources) Start: 11-11-2023 Multivitamin-Minerals- Lutein (Multivitamin 50 Plus) tablet Active 1 TAB PO Daily November 11, 2023 12:00am naproxen 500 mg oral tablet (11 sources) Nonsteroidal Anti-inflammator y Drug Start: 02-06-2023 take 1 tablet by mouth twice daily Naprosyn 500 mg Tab 500 mg = 1 tab(s), Oral, BID, # 20 tab(s), Refills(s) 0, Pharmacy: [facility]/pharmacy #[id number], 165.1, cm, 02/06/23 11:15:00 EDT, Height/Length Dosing, 64, kg, 02/06/23 11:15:00 EDT, Weight Dosing Start Date: 02/06/23 Status: Ordered Nature's Bounty Red Krill Oil 500 mg oral capsule (11 sources) Start: 05-17-2016 take 1 capsule by mouth once daily Nature's Bounty Red Krill Oil 500 mg oral capsule 1 cap, Oral, Daily, Refill(s) 0, High cholesterol Start Date: 05/17/16 Status: Ordered [place] 3-6-9 Complex (1 source) [place] 3-6-9 Comp yadira Orally Active ondansetron 4 mg disintegrating oral tablet (11 sources) Serotonin-3 Receptor Antagonist Start: 02-06-2023 take 1 tablet by mouth every six hours ondansetron 4 mg Dis Tab 4 mg = 1 tab(s), Oral, q6hr, # 12 tab(s), Refills(s) 0, Pharmacy: [facility]/pharmacy #[id number], 165.1, cm, 02/06/23 11:15:00 EDT, Height/Length Dosing, 64, kg, 02/06/23 11:15:00 EDT, Weight Dosing Start Date: 02/06/23 Status: Ordered tamsulosin hydrochloride 0.4 mg oral capsule (8 sources) alpha-Adrenergic Virgie Start: 02-06-2023 take 1 capsule by mouth once daily tamsulosin 0.4 mg Cap 0.4 mg = 1 cap(s), Oral, Daily, # 10 cap(s), Refills(s) 0, Pharmacy: [facility]/pharmacy #[id number], 165.1, cm, 02/06/23 11:15:00 EDT, Height/Length Dosing, 64, kg, 02/06/23 11:15:00 EDT, Weight Dosing Start Date: 02/06/23 Status: Ordered Vitamin D (1 source) Vitamin D Active Womens Daily Formula (1 source) Womens Daily For fabio Orally Active Completed/Discontinued Medications Medication Drug Class(es) Dates Sig (Normalized) Sig (Original) Ugcvdhflostu-Ma-Ip on-Minerals (Women's Daily Formula) 27-0.4 mg tablet (7 sources) Start: 08-31-2024 End: 09-01-2024 take 1 tablet by mouth once daily Simqfgvwhnbd-Jh-Yte n-Minerals (Women's Daily Formula) 27-0.4 mg tablet Discontinued TAB PO August 31, 2024 12:00am September 01, 2024 10:24am Vitamin (7 sources) Start: 08-31-2024 End: 09-01-2024 Vitamin Discontinued PO August 31, 2024 12:00am September 01, 2024 10:24am Problems Active Problems Problem Classification Problem Date Documented Date Episodic/Chronic Calculus of urinary tract (20 sources) History of calculus of kidney; Translations: [Kidney stone] Onset: 02-08-2023 02-08-2023 Episodic Cardiac dysrhythmias (2 sources) Ventricular premature depolarization; Translations: [Ventricular premature depolarization] Onset: 08-20-2023 Chronic Disorders of lipid metabolism (17 sources) Hyperlipidemia; Translations: [Hyperlipidemia, unspecified] Onset: 08-24-2024 Chronic Endometriosis (11 sources) Endometriosis (clinical) 01-01-2014 Chronic Genitourinary symptoms and ill-defined conditions (11 sources) Genuine stress incontinence 09-14-2019 Chronic Genitourinary symptoms and ill-defined conditions (20 sources) Urgent desire to urinate; Translations: [Abnormal urinalysis] Onset: 12-17-2023 09-14-2019 Episodic Other aftercare (1 source) Other long-term (current) drug therapy; Translations: [OTH TELEPHONE MAINTAINER CURRENT DRUG THERAPY] Onset: 02-18-2023 Episodic Other circulatory disease (11 sources) Low blood pressure 06-03-2019 Episodic Other diseases of kidney and ureters (11 sources) Hydronephrosis 02-08-2023 Episodic Other diseases of kidney and ureters (2 sources) Urinary tract obstruction; Translations: [Hydronephrosis with renal and ureteral calculous obstruction] Onset: 02-08-2023 Episodic Other diseases of kidney and ureters (4 sources) Hydronephrosis with renal and ureteral calculous obstruction; Translations: [HYDRONPHROS RENL AND URETRL CALCUL OBST] Onset: 02-08-2023 Episodic Other injuries and conditions due to external causes (10 sources) Foreign body in bladder; Translations: [Foreign body in bladder, initial encounter] Onset: 02-19-2023 Episodic Other screening for suspected conditions (not mental disorders or infectious disease) (3 sources) Other specified abnormal findings of blood chemistry; Translations: [Encounter for screening for malignant neoplasm of colon] Onset: 07-01-2023 Episodic Otitis media and related conditions (1 source) Acute secretory otitis media; Translations: [Other acute nonsuppurative otitis media, right ear] Onset: 10-11-2024 Episodic Residual codes; unclassified (11 sources) H/O Spinal surgery 04-08-2014 Episodic Residual codes; unclassified (1 source) Tobacco dependence syndrome; Translations: [Tobacco use] Episodic Residual codes; unclassified (7 sources) Tobacco user; Translations: [Tobacco use] 08-31-2024 Episodic Residual codes; unclassified (7 sources) Tobacco use; Translations: [Tobacco use disorder] 09-01-2024 Episodic Substance-related disorders (12 sources) Smoker; Translations: [Nicotine dependence, cigarettes, uncomplicated] Onset: 02-18-2023 09-14-2019 Chronic Comment on above: Added secondary to d ocumentation in Social History. Superficial injury; contusion (2 sources) Contusion of left thigh, subsequent encounter; Translations: [Contusion of left thigh, initial encounter] Onset: 11-11-2024 Episodic Unclassified (1 source) Other ventricular tachycardia; Translations: [Other ventricular tachycardia] Onset: 08-20-2023 Urinary tract infections (4 sources) Urinary tract infectious disease; Translations: [Urinary tract infection, site not specified] Onset: 12-17-2023 Episodic Past or Other Problems Problem Classification Problem Date Documented Da te Episodic/Chronic Diabetes mellitus without complication (17 sources) Prediabetes; Translations: [Prediabetes] Onset: 08-24-2024 Episodic Unclassified (11 sources) arthiritis 01-15-2011 Unclassified (11 sources) foot surgery 01-09-2011 Unclassified (11 sources) lump removed from knee 01-15-2011 Unclassified (1 source) Other ventricular tachycardia; Translations: [Other ventricular tachycardia] Onset: 08-20-2023 Results Test Name Value Interpretation Reference Range Facility US venous duplex LE LTon US venous duplex LT [address] [address] Ultrasound Report Signed Patient: Sheyla Hogan MR#: [id number] : 1960 Acct:[id number] Age/Sex: 63 / F ADM Date: 11/11/24 Loc: Room: Type: [facility] Attending Dr: Juan Carlos Andres - [facility] , [facility] Ordering Provider: Juan Carlos Andres DO Date of Service: 11/11/24 US/US venous duplex LT: CONTUSION OF LEFT THIGH Copies to: Juan Carlos Andres DO LEFT LOWER EXTREMITY VENOUS DUPLEX INDICATION: Left leg pain Unilateral left lower extremity venous duplex Doppler study was obtained utilizing B-mode, color- flow and spectral Doppler. FINDINGS: The left common femoral, femoral, and popliteal veins showed adequate compressibility, color-flow and augmentation. The left posterior tibial and peroneal veins were compressible, as well as proximal greater saphenous vein. The contralateral right common femoral vein was compressible with color-flow and augmentation. US/US venous duplex LT IMPRESSION: NO EVIDENCE OF DEEP VENOUS THROMBOSIS IN THE LEFT LOWER EXTREMITY. NO SUPERFICIAL THROMBOPHLEBITIS WAS NOTED. Impression dictated by: Cesario Cornelius M.D.11/12/2024 9:00 AM Dictation Location: [place] [address] Tech: Debo Watkins Transcribed By: ITZEL 11/12/24899 Dictated By: Cesario Cornelius MD 11/12/24899 Signed By: 11/12/24899 Normal [facility] X-ray reportOrdered By: Christian Avery on 10-28-2024 Study report [address] [address] XRay Report Signed Patient: Sheyla Hogan MR#: [id number] : 1960 Acct:[id number] Age/Sex: 63 / F ADM Date: 5 Loc: CO Room: Type: REG CLI Attending Dr: Juan Carlos Andres - [facility] , [facility] Copies to: Juan Carlos Andres DO~ Ordering Provider: Juan Carlos Andres DO Date of Service: 10/28/24 XR/XR femur LT 2V*: [facility] LEFT FEMUR INJURY XR femur LT 2V* 10/28/2024 9:29 AM SIGNS AND SYMPTOMS: Left upper leg pain anteriorly with lump along the mid shaft. Pain radiating to left hip and knee. PROTOCOL: Frontal and lateral graphs of the left femur COMPARISON: None FINDINGS: There is narrowing of the left hip joint space. There is chondrocalcinosis along the expected location of the left hip labrum with chondrocalcinosis along the menisci in the left knee suggesting underlying CPPD. There is no evidence of fracture. No dislocation. There is mild focal soft tissue swelling superiorto the patella along the distal quadriceps. Vascular calcifications are presentin the pelvis. XR/XR femur LT 2V* IMPRESSION: No fracture or dislocation. There is mild focal soft tissue swelling superior to the patella along the distal quadriceps. Findings suggest chondrocalcinosis as above. Impression dictated by: Christian Avery M.D.10/28/2024 11:45 AM Dictation Location: [place] [address] Transcribed By: [facility] 10/28/24 1145 Dictated By: Christian Avery II, MD 10/28/24 1143 Signed By: 10/28/24 1145 [facility] Work Phone: XR femur LT 2V*on 10-28-2024 XR femur LT 2V* [facility] Main [place] [address] [place] [address] XRay Report Signed Patient: Sheyla Hogan MR#: [id number] : 1960 Acct:[id number] Age/Sex: 63 / F ADM Date: 10/28/24 Loc: CO Room: Type: REG CLI Attending Dr: Juan Carlos Andres - [facility] , [facility] Copies to: Juan Carlos Andres DO Ordering Provider: Juan Carlos Andres DO Date of Service: 10/28/24 XR/XR femur LT 2V*: [facility] LEFT FEMUR INJURY XR femur LT 2V* 10/28/2024 9:29 AM SIGNS AND SYMPTOMS: Left upper leg pain anteriorly with lump along the mid shaft. Pain radiating to left hip and knee. PROTOCOL: Frontal and lateral graphs of the left femur COMPARISON: None FINDINGS: There is narrowing of the left hip joint space. There is chondrocalcinosis along the expected location of the left hip labrum with chondrocalcinosis along the menisci in the left knee suggesting underlying CPPD. There is no evidence of fracture. No dislocation. There is mild focal soft tissue swelling superior to the patella along the distal quadriceps. Vascular calcifications are present in the pelvis. XR/XR femur LT 2V* IMPRESSION: No fracture or dislocation. There is mild focal soft tissue swelling superior to the patella along the distal quadriceps. Findings suggest chondrocalcinosis as above. Impression dictated by: Christian Avery M.D.10/28/2024 11:45 AM Dictation Location: [place] [address] Transcribed By: [facility] 10/28/24 1145 Dictated By: Christian Avery II, MD 10/28/24 1143 Signed By: 10/28/24 1145 Normal [facility] Ambulatory Visit Summaryon 1 12-12-2023 Ambulatory Visit Summary Ambulatory Visit Summary SHEYLA HOGAN :1960 Visit Date:10/11/2024 Ambulatory Visit Instructions Your Care Team Attending Physician - Emile Vasquez PA-C Primary Care Physician - YELITZA ZAMBRANO DO This Is Your Medications List Contact prescribing physician if questions or concerns acetaminophen-hydroco done (Mazon 325 mg-5 mg oral tablet) calcium-vitamin D (Calcium 600+D) multivitamin with minerals (Multivitamin, Therapeutic w/ Minerals) naproxen (Naprosyn 500 mg Tab) omega-3 polyunsaturated fatty acids (Nature's Bounty Red Krill Oil 500 mg oral capsule) ondansetron (ondansetron 4 mg Dis Tab) Procedures Performed Cysto, right JJ stent , ESWL right renal calculus (05/31/2016), Cystoscopy (12/10/2013), Lithotripsy using laser (10/25/2011), Cystoscopic removal of ureteric stent (02/02/2011), ESWL of kidney (01/25/2011), Breast biopsy and related procedures, Cystoscopy, excision of knee cyst, lumbar laminectomy L%-S1, Tonsillectomy and adenoidectomy, Tubal ligation. Discharge Vitals Temperature (Tympanic) 37 ???C Heart Rate (Peripheral) 58 Blood Pressure 110/64 Height 165 cm Height 65 in Weight 60 kg Weight 132.277 lb BMI 22.04 What to do next Scheduled Follow-Up Appointments Saturday 9:15 AM EST With: WILLIE QUISPE, Tayo Pearl Where: [facility] [address] [address]- Medications What How Much When Instructions Unchanged acetaminophen-hydroco done (Mazon 325 mg-5 mg oral tablet) 1 Tablets By Mouth Every 4 hours as needed for for pain Contact prescribing physician if questions or concerns Unchanged calcium-vitamin D (Calcium 600+D) 1 tab By Mouth Every day Contact prescribing physician if questions or concerns Unchanged multivitamin with minerals (Multivitamin, Therapeutic w/ Minerals) 1 Tablets By Mouth Every day Contact prescribing physician if questions or concerns Unchanged naproxen (Naprosyn 500 mg Tab) 1 Tablets By Mouth 2 times a day Contact prescribing physician if questions or concerns Unchanged omega-3 polyunsaturated fatty acids (Nature's Bounty Red Krill Oil 500 mg oral capsule) 1 cap By Mouth Every day Contact prescribing physician if questions or concerns Unchanged ondansetron (ondansetron 4 mg Dis Tab) 1 Tablets By Mouth Every 6 hours Contact prescribing physician if questions or concerns Allergies No Known Allergies Problems Ongoing - Any problem that you are currently receiving treatment for. Abnormal urinalysis Foreign body in bladder History of kidney stones History of UTI Hypercalciuria Renal stones Smoker Stress incontinence Ureteral stone with hydronephrosis Urgency of urination UTI (urinary tract infection) Historical - Any problem that you are no longer receiving treatment for. arthiritis back surgery Endometriosis foot surgery Hypotension lump removed from knee Tonsillectomy Tubal ligation Patient Survey You may receive a survey via text or e-mail asking about your office visit. Please share your experience with us by completing your survey. We appreciate your feedback and thank you for choosing us for your care. [facility] Family Medicine Office/Clini c Noteon 10-11-2024 Family Medicine Office/Clinic Note Family Medicine Office/Clinic Note Chief Complaint ear pain HPI Staff 63 year old female presents with rt ear pain that radiates into rt sided jaw since a week before Thanksgiving after using a q-tip tylenol, ibuprofen History of Present Illness I have reviewed and verified the staff HPI to be accurate for this encounter. Portions of this record have been created with voice recognition software. Occasional wrong-word or ???sacsx-w-npnl??? substitutions may have occurred due to the inherent limitations of voice recognition software. 63 yo female presents today with cc of ear pain. Patient states that 1 week prior to Thanksgiving she was using a Q-tip from the right ear and states she wants to want a little too deep or too far when she states she had pain in the right ear she states ever since then she has had pain in front of the right ear more so at the jawline states that she had an appoint with her dentist shortly after that but states the evaluation then went well she states the dentist noted that that can be typical or normal and that was it. She states that that right ear and right jawline has continued to bother her over the past 1 month. States on occasion she gets a creepy crawly feeling within the right ear she states if she sits still last about 30 seconds to 1 minute and then resolves. She denies any fever or chills denies any dizziness or lightheadedness no runny stuffy nose cough or cold-like symptoms. No right ear drainage. States states that the initial time of injury to the right ear she did have a little bit of bleeding but she had her look in which it looks like a small scratch on the inside of the right ear canal. She denies ever seeing ENT in the past. She denies any history of TMJ. Denies any history of trigeminal neuralgia denies any nerve type pain or sensation. She states it seems to be worse in the morning when she first wakes up. She has no other concerns at this time. Review of Systems PHQ Score Initial Depression Screen Score: 0 SCORE ROS negative unless otherwise stated in HPI. Physical Exam Vitals & Measurements T: 37 ???C(Tympanic) HR: 58(Peripheral) BP: 110/64 SpO2: 99% HT: 65 in HT: 165 cm WT: 60 kg WT: 132.277 lb BMI: 22.04 General: Well developed, well nourished, in no acute distress Eyes: Bilateral conjunctiva wnl no injection Ears: The right TM is slightly bulging with fluid behind it consistent with a right ear effusion left TM is within normal limits no erythema or bulging bilateral external auditory canals are within normal limits no erythema or edema. Nose: No deformity, discharge, inflammation, or lesions Mouth: Moist mucous membranes. Uvula is midline. No acute tonsillar erythema edema or exudate. No signs of peritonsillar abscess. No trismus or drooling. No clicking with palpation over bilateral jaw region. Neck: no adenopathy no preauricular or postauricular lymphadenopathy. No facial swelling or concerns for parotitis Lungs: Lung sounds are clear bilaterally. No wheezing rhonchi or crackles on exam Cardio: S1, S2, regular rhythm. No murmurs gallops or rubs. Abdomen: not assessed Musculoskeletal: not assessed Extremity: not assessed Neurologic: not assessed Skin: not assessed Mental Status: Alert and oriented x3. Normal mood and affect Assessment/Plan I spoke with patient in regards to right ear effusion she denies any history of seasonal allergies. She has never used Flonase. I discussed with patient that given duration of symptoms I would like to refer her to ENT as she denies any history of thyroid issues etc. I discussed with patient in regards to the right ear effusion I would like to treat with Flonase twice daily x 7 days duration. states that he has extra Flonase at home and states he has a new bottle as he uses this himself. Discussed with patient 2 sprays bilateral nostrils twice daily x 7 to 14 days duration to see if this provides patient with improvement of symptoms otherwise should hear from ENT within the next several days hopefully by end of week given the holiday coming up. Patient and both agree and understand plan otherwise will follow closely with PCP or return if needed patient and both agree and understand plan. 1. Acute effusion of right ear (H65.191: Other acute nonsuppurative otitis media, right ear) Please follow-up with your primary care provider in 3 to 5 days. Contact their office tomorrow morning to schedule follow-up appointment. You were seen and evaluated in regards to right sided ear pain in which you have fluid behind the right eardrum. This is termed an effusion of the ear. Start Flonase, 1-2 sprays in both nostrils twice daily over the next 7 days. You may return for any worsening or concerning symptoms. ENT referral is placed given duration of your right ear pain. Pt and both agree and understand plan. Follow-up With When Contact Information YELITZA ZAMBRANO DO [address] [place] [phone] (more content not included)... Normal [facility] Comment on above: Result Comment: Elec tronically Signed By: Pedro KERN, Emile Vazquez\.br\Date and Time Signed: 10/11/24 09:35 EST Reminderson 10-06-2024 Reminders Reminders From: Joan Pena To: ONE[facility] Serenity Odomry; Sent: 12/17/2023 15:12:49 EST Show up: 09/16/2024 15:12:00 EST Subject: Renal US, KUB, litholink Due Date/Time: 10/16/2024 15:12:00 EST Reminder Message Pt needs renal US and KUB prior to 1 year appointment. Pt also needs litholink kit mailed. 24 hour urine only. No labs. Imaging to be done at [facility]. orders created today. Pt called today requesting orders to be sent for KUB/DANIEL to [facility]. Also faxed order for litholink (24hr urine only). Scanned orders to pt's chart. F/u 12/21/24 with PRW for 1y r with KUB and 24hr urine (no blood work). Normal [facility] A1C with Estimated Average G veronika 08-24-2024 Glucose [Mass/Vol] 120 mg/dL Normal [facility] Comment on above: Order Comment: Reaso n for Exam Laboratory exam ordered as part of routine general medical e Result Comment: PERF ORMED BY: [facility] [address] [place] [address] PATHOLOGIST SHALE PLANER OPERATOR JIANLAN SUN M.D. Performed By: #### A 1C [facility] #### [facility] [address] [place] [address] [place] Alanine aminotransferase [En zymatic activity/volume] in Serum or PlasmaOrdered By: Yelitza Zambrano on 08-24-2024 ALT [Catalytic activity/Vol] 22 U/L Normal [facility] Comment on above: Order Comment: Reaso n for Exam Laboratory exam ordered as part of routine general medical e Performed By: #### T SH3 wRFLX, LIPID, CMP, [id number] #### [facility] [address] [place] [address] [place] ALT [Catalytic activity/Vol] Alanine aminotransferase [Enzymatic activity/volume] in Serum or Plasma [facility] Albumin [Mass/volume] in Ser um or Plasma by Bromocresol green (BCG) dye binding methoOrdered By: Yelitza Zambrano on 08-24-2024 Albumin BCG dye [Mass/Vol] 4.3 g/dL 3.5-5.7 [facility] Albumin BCG dye [Mass/Vol] Albumin [Mass/volume] in Serum or Plasma by Bromocresol green (BCG) dye binding metho 3.5-5.7 [facility] Alkaline phosphatase [Enzyma tic activity/volume] in Serum or PlasmaOrdered By: Yelitza Zambrano on 08-24-2024 ALP [Catalytic activity/Vol] 71 U/L Normal 34-104 [facility] Comment on above: Order Comment: Reaso n for Exam Laboratory exam ordered as part of routine general medical e Performed By: #### T SH3 wRFLX, LIPID, CMP, [id number] #### [facility] [address] [place] [address] [place] ALP [Catalytic activity/Vol] Alkaline phosphatase [Enzymatic activity/volume] in Serum or Plasma [address] [facility] Aspartate aminotransferase [ Enzymatic activity/volume] in Serum or PlasmaOrdered By: Yelitza Zambrano on 08-24-2024 AST [Catalytic activity/Vol] 21 U/L Normal 13-39 [facility] Comment on above: Order Comment: Reaso n for Exam Laboratory exam ordered as part of routine general medical e Performed By: #### T SH3 wRFLX, LIPID, CMP, [id number] #### [facility] [address] [place] [address] AST [Catalytic activity/Vol] Aspartate aminotransferase [Enzymatic activity/volume] in Serum or Plasma 13-39 [facility] Automated basophil %Ordered By: Yelitza Zambrano on 08-24-2024 Basophils/100 WBC (Bld) 0.9 % Normal . [facility] Comment on above: Order Comment: Reaso n for Exam Laboratory exam ordered as part of routine general medical e Performed By: #### C BC #### [address] Automated basophil countOrde red By: Yelitza Zambrano on 08-24-2024 Basophils (Bld) [#/Vol] 0.1 10*3/uL Normal 0.0-0.2 [facility] Comment on above: Order Comment: Reaso n for Exam Laboratory exam ordered as part of routine general medical e Result Comment: PERF ORMED BY: [place] [address] PATHOLOGIST SHALE PLANER OPERATOR LATRICE RUTH M.D. Performed By: #### C BC #### [address] Automated blood monocyte cou ntOrdered By: Yelitza Zambraon on 08-24-2024 Monocytes (Bld) [#/Vol] 0.4 10*3/uL Normal 0.0-0.8 [facility] Comment on above: Order Comment: Reaso n for Exam Laboratory exam ordered as part of routine general medical e Performed By: #### C BC #### [address] Automated eosinophil %Ordere d By: Yelitza Zambrano on 08-24-2024 Eosinophils/100 WBC (Bld) 4.1 % Normal . [facility] Comment on above: Order Comment: Reaso n for Exam Laboratory exam ordered as part of routine general medical e Performed By: #### C BC #### [address] Automated eosinophil countOr dered By: Yelitza Zambrano on 08-24-2024 Eosinophils (Bld) [#/Vol] 0.3 10*3/uL Normal 0.0-0.45 [facility] Comment on above: Order Comment: Reaso n for Exam Laboratory exam ordered as part of routine general medical e Performed By: #### C BC #### [facility] [address] Automated monocyte %Ordered By: Yelitza Zambrano on 08-24-2024 Monocytes/100 WBC (Bld) 5.9 % Normal . [facility] Comment on above: Order Comment: Reaso n for Exam Laboratory exam ordered as part of routine general medical e Performed By: #### C BC #### [address] Automated neutrophil %Ordere d By: Yelitza Zambrano on 08-24-2024 Neutrophils/100 WBC (Bld) 63.1 % Normal . [facility] Comment on above: Order Comment: Reaso n for Exam Laboratory exam ordered as part of routine general medical e Performed By: #### C BC #### [place] [address] [place] Basophils Auto (Bld) [#/Vol] Ordered By: Yelitza Zambrano on 08-24-2024 Basophils (Bld) [#/Vol] Automated basoph il count 0.0-0.2 [facility] Basophils/100 WBC Auto (Bld) Ordered By: Yelitza Zambrano on 08-24-2024 Basophils/100 WBC (Bld) Automated basophil % . [facility] Bilirubin.total [Mass/volume ] in Serum or PlasmaOrdered By: Yelitza Zambrano on 08-24-2024 Bilirubin [Mass/Vol] 0.3 mg/dL Normal 0.3-1.0 [facility] Comment on above: Order Comment: Reaso n for Exam Laboratory exam ordered as part of routine general medical e Performed By: #### T SH3 wRFLX, LIPID, CMP, [id number] #### [facility] [address] [place] [address] Bilirubin [Mass/Vol] Bilirubin.total [Mass/volume] in Serum or Plasma 0.3-1.0 [facility] Blood estimated average gluc ose determination by estimation from glycated hemoglobinOrdered By: Yelitza Zambrano on 08-24-2024 Average glucose Estimated from glycated hemoglobin (Bld) [Mass/Vol] Glucose mean value [Mass/volume] in Blood Estimated from glycated hemoglobin [facility] Calcium [Mass/volume] in Ser um or PlasmaOrdered By: Yelitza Zambrano on 08-24-2024 Calcium [Mass/Vol] 9.5 mg/dL Normal 8.6-10.3 [facility] Comment on above: Order Comment: Reaso n for Exam Laboratory exam ordered as part of routine general medical e Performed By: #### T SH3 wRFLX, LIPID, CMP, [id number] #### [facility] [address] Calcium [Mass/Vol] Calcium [Mass/volume ] in Serum or Plasma 8.6-10.3 [facility] Carbon dioxide, total [Moles /volume] in Serum or PlasmaOrdered By: Yelitza Zambrano on 08-24-2024 CO2 [Moles/Vol] 29.4 mmol/L Normal 21.0-31.0 [facility] Comment on above: Order Comment: Reaso n for Exam Laboratory exam ordered as part of routine general medical e Performed By: #### T SH3 wRFLX, LIPID, CMP, [id number] #### [facility] [address] [place] [id number] [place] CO2 [Moles/Vol] Carbon dioxide, tota l [Moles/volume] in Serum or Plasma 21.0-31.0 [facility] Chloride [Moles/volume] in S joselin or PlasmaOrdered By: Yelitza Zambrano on 08-24-2024 Chloride [Moles/Vol] 106 mmol/L Normal 98-107 [facility] Comment on above: Order Comment: Reaso n for Exam Laboratory exam ordered as part of routine general medical e Performed By: #### T SH3 wRFLX, LIPID, CMP, [id number] #### [facility] [address] [place] [id number] [place] Chloride [Moles/Vol] Chloride [Moles/volume] in Serum or Plasma 98-107 [facility] Cholesterol [Mass/volume] in Serum or PlasmaOrdered By: Yelitza Zambrano on 08-24-2024 Cholesterol [Mass/Vol] 202 mg/dL High 140-200 [facility] Comment on above: Chol less than 200 m g/dl low riskChol 201-239 mg/dl borderline riskChol 240 mg/dl and greater high risk Order Comment: Reaso n for Exam Laboratory exam ordered as part of routine general medical e Result Comment: Chol less than 200 mg/dl low risk Chol 201-239 mg/dl borderline risk Chol 240 mg/dl and greater high risk Performed By: #### T SH3 wRFLX, LIPID, CMP, [id number] #### [facility] [address] Cholesterol [Mass/Vol] Cholesterol [Mass/volume] in Serum or Plasma High 140-200 [facility] Comment on above: Chol less than 200 m g/dl low riskChol 201-239 mg/dl borderline riskChol 240 mg/dl and greater high risk Cholesterol in HDL [Mass/vol ume] in Serum or PlasmaOrdered By: Yelitza Zambrano on 08-24-2024 Cholesterol in HDL [Mass/Vol] Serum or plasma high density lipoprotein (HDL) cholesterol measurement 23-92 [facility] Comment on above: HDL CHOL ATP-III CLA SSIFICATION Cardiovascular RiskHDL > or equal to 60 mg/dL LOWHDL < 40 mg/dL HIGH Cholesterol in LDL Calc [Mas s/Vol]Ordered By: Yelitza Zambrano on 08-24-2024 Cholesterol in LDL [Mass/Vol] 119 mg/dL High 0-100 [facility] Comment on above: LDL ATP III CLASSIFI CATIONLDL less than 100 mg/dL OptimalLDL 100-129 mg/dL Near or above optimalLDL 130-159 mg/dL Borderline highLDL 160-189 mg/dL HighLDL greater than 189 mg/dL Very high Cholesterol in LDL [Mass/Vol] Cholesterol in LDL [Mass/volume] in Serum or Plasma by calculation High 0-100 [facility] Comment on above: LDL ATP III CLASSIFI CATIONLDL less than 100 mg/dL OptimalLDL 100-129 mg/dL Near or above optimalLDL 130-159 mg/dL Borderline highLDL 160-189 mg/dL HighLDL greater than 189 mg/dL Very high Cholesterol in VLDL Calc [Ma ss/Vol]Ordered By: Yelitza Zambrano on 08-24-2024 Cholesterol in VLDL [Mass/Vol] 33 mg/dL [facility] Cholesterol in VLDL [Mass/Vol] Cholesterol in VLDL [Mass/volume] in Serum or Plasma by calculation [facility] Complete Blood Count Auto Di ffon 08-24-2024 Mean Corpuscular HGB Conc 33.7 g/dL Normal 32.0-35.0 [facility] Comment on above: Order Comment: Reaso n for Exam Laboratory exam ordered as part of routine general medical e Performed By: #### C BC #### [address] NRBC% 0.1 /100{WBC} Normal 0-0.5 [facility] Comment on above: Order Comment: Reaso n for Exam Laboratory exam ordered as part of routine general medical e Performed By: #### C BC #### [address] Comprehensive Metabolic Pane michelle 08-24-2024 Albumin [Mass/Vol] 4.3 g/dL Normal 3.5-5.7 [facility] Comment on above: Order Comment: Reaso n for Exam Laboratory exam ordered as part of routine general medical e Performed By: #### T SH3 wRFLX, LIPID, CMP, [id number] #### [address] GFR/1.73 sq M.predicted MDRD (S/P/Bld) [Vol rate/Area] mL/min/{1.73_m2} Normal [facility] Comment on above: Order Comment: Reaso n for Exam Laboratory exam ordered as part of routine general medical e Performed By: #### T SH3 wRFLX, LIPID, CMP, [id number] #### [place] [id number] [facility] Creatinine [Mass/volume] in Serum or PlasmaOrdered By: Yelitza Zambrano on 08-24-2024 Creatinine [Mass/Vol] 0.76 mg/dL Normal 0.60-1.20 [facility] Comment on above: Order Comment: Reaso n for Exam Laboratory exam ordered as part of routine general medical e Performed By: #### T SH3 wRFLX, LIPID, CMP, [id number] #### [facility] [address] Creatinine [Mass/Vol] Creatinine [Mass/volume] in Serum or Plasma 0.60-1.20 [facility] Eosinophils Auto (Bld) [#/Vo l]Ordered By: Yelitza Zambrano on 08-24-2024 Eosinophils (Bld) [#/Vol] Automated eosinophil count 0.0-0.45 [facility] Eosinophils/100 WBC Auto (Bl d)Ordered By: Yelitza Zambrano on 08-24-2024 Eosinophils/100 WBC (Bld) Automated eosinophil % . [facility] Erythrocyte distribution wid th Auto (RBC) [Ratio]Ordered By: Yelitza Zambrano on 08-24-2024 Erythrocyte distribution width (RBC) [Ratio] Erythrocyte distribution width [Ratio] by Automated count 11.9-15.3 [facility] Erythrocyte distribution wid th [Ratio] by Automated countOrdered By: Yelitza Zambrano on 08-24-2024 Erythrocyte distribution width (RBC) [Ratio] 12.8 % Normal 11.9-15.3 [facility] Comment on above: Order Comment: Reaso n for Exam Laboratory exam ordered as part of routine general medical e Performed By: #### C BC #### [facility] [address] [place] [address] Erythrocytes [#/volume] in B lood by Automated countOrdered By: Yelitza Zambrano on 08-24-2024 RBC (Bld) [#/Vol] 4.76 10*6/uL Normal 3.60-5.00 [facility] Comment on above: Order Comment: Reaso n for Exam Laboratory exam ordered as part of routine general medical e Performed By: #### C BC #### [facility] [address] [place] [address] Globulin Calc (S) [Mass/Vol] Ordered By: Yelitza Zambrano on 08-24-2024 Globulin (S) [Mass/Vol] Serum globulin measurement by calculation (mass/volume) [facility] Glucose [Mass/volume] in Ser um or PlasmaOrdered By: Yelitza Zambrano on 08-24-2024 Glucose [Mass/Vol] 93 mg/dL Normal 70-100 [facility] Comment on above: ADA recommended refe rence rangeRandom Glucose Reference Range is dependent on time and content of last meal. Glucose of more than 200 mg/dL in a nonstressed, ambulatory subject supports the diagnosis of Diabetes Mellitus. Order Comment: Reaso n for Exam Laboratory exam ordered as part of routine general medical e Result Comment: [place] om Glucose Reference Range is dependent on time and content of last meal. Glucose of more than 200 mg/dL in a nonstressed, ambulatory subject supports the diagnosis of Diabetes Mellitus. ADA recommended reference range Performed By: #### T SH3 wRFLX, LIPID, CMP, [id number] #### [facility] [address] Glucose [Mass/Vol] Glucose [Mass/volume ] in Serum or Plasma 70-100 [facility] Comment on above: ADA recommended refe rence rangeRandom Glucose Reference Range is dependent on time and content of last meal. Glucose of more than 200 mg/dL in a nonstressed, ambulatory subject supports the diagnosis of Diabetes Mellitus. Glucose mean value [Mass/vol ume] in Blood Estimated from glycated hemoglobinOrdered By: Yelitza Zambrano on 08-24-2024 Average glucose Estimated from glycated hemoglobin (Bld) [Mass/Vol] 120 mg/dL [facility] Hematocrit Auto (Bld) [Volum e fraction]Ordered By: Yelitza Zambrano on 08-24-2024 Hematocrit (Bld) [Volume fraction] Hematocrit [Volume Fraction] of Blood by Automated count 34.0-46.4 [facility] Hematocrit [Volume Fraction] of Blood by Automated countOrdered By: Yelitza Zambrano on 08-24-2024 Hematocrit (Bld) [Volume fraction] 45.5 % Normal 34.0-46.4 [facility] Comment on above: Order Comment: Reaso n for Exam Laboratory exam ordered as part of routine general medical e Performed By: #### C BC #### [address] Hemoglobin A1c percentageOrd ered By: Yelitza Zambrano on 08-24-2024 HbA1c (Bld) [Mass fraction] 5.8 % High 4.3-5.6 [facility] Comment on above: Increased risk for d iabetes: 5.7 - 6.4diabetes: >6.4glycemic control for adults with diabetes: <7.0 Order Comment: Reaso n for Exam Laboratory exam ordered as part of routine general medical e Result Comment: Incr eased risk for diabetes: 5.7 - 6.4 diabetes: >6.4 glycemic control for adults with diabetes: <7.0 Performed By: #### A 1C [facility] eA #### [address] Hemoglobin A1c/Hemoglobin.to mere in BloodOrdered By: Yelitza Zambrano on 08-24-2024 HbA1c (Bld) [Mass fraction] Hemoglobin A1c percentage High 4.3-5.6 [facility] Comment on above: Increased risk for d iabetes: 5.7 - 6.4diabetes: >6.4glycemic control for adults with diabetes: <7.0 Hemoglobin [Mass/volume] in BloodOrdered By: Yelitza Zambrano on 08-24-2024 Hemoglobin (Bld) [Mass/Vol] 15.4 g/dL Normal 11.8-15.4 [facility] Comment on above: Order Comment: Reaso n for Exam Laboratory exam ordered as part of routine general medical e Performed By: #### C BC #### [place] [id number] [facility] Hemoglobin (Bld) [Mass/Vol] Hemoglobin [Mass/volume] in Blood 11.8-15.4 [facility] Leukocytes [#/volume] correc leonila for nucleated erythrocytes in Blood by Automated counOrdered By: Yelitza Zambrano on 08-24-2024 WBC corrected for nucl RBC Auto (Bld) [#/Vol] 7.3 10*3/uL 3.8-11.6 [facility] WBC corrected for nucl RBC Auto (Bld) [#/Vol] Leukocytes [#/volume] corrected for nucleated erythrocytes in Blood by Automated coun 3.8-11.6 [facility] Leukocytes [#/volume] in Blo od by Automated countOrdered By: Yelitza Zambrano on 08-24-2024 WBC (Bld) [#/Vol] 7.3 10*3/uL Normal 3.8-11.6 [facility] Comment on above: Order Comment: Reaso n for Exam Laboratory exam ordered as part of routine general medical e Performed By: #### C BC #### [facility] [address] Lipid Panelon 08-24-2024 LDL Cholesterol,Calculated 119 mg/dL High 0-100 [facility] Comment on above: Order Comment: Reaso n for Exam Laboratory exam ordered as part of routine general medical e Result Comment: LDL ATP III CLASSIFICATION LDL less than 100 mg/dL Optimal LDL 100-129 mg/dL Near or above optimal LDL 130-159 mg/dL Borderline high LDL 160-189 mg/dL High LDL greater than 189 mg/dL Very high Performed By: #### T SH3 wRFLX, LIPID, CMP, [id number] #### [facility] [address] Triglyceride w/Reflex 165 mg/dL High 0-149 [facility] Comment on above: Order Comment: Reaso n for Exam Laboratory exam ordered as part of routine general medical e Result Comment: TRIG ATP III CLASSIFICATION TRIG less than 150 mg/dL Normal TRIG 150-199 mg/dL Borderline high TRIG 200-500 mg/dL High TRIG greater than 500 mg/dL Very high Standard traceable to the Center for Disease Conrtrol and Prevention (CDC) test method. Performed By: #### T SH3 wRFLX, LIPID, CMP, [id number] #### [facility] [address] VLDL CHOLESTEROL 33 mg/dL Normal [facility] Comment on above: Order Comment: Reaso n for Exam Laboratory exam ordered as part of routine general medical e Performed By: #### T SH3 wRFLX, LIPID, CMP, [id number] #### [facility] [address] [place] [address] [place] Lymphocytes Auto (Bld) [#/Vo l]Ordered By: Yelitza Zambrano on 08-24-2024 Lymphocytes (Bld) [#/Vol] Lymphocytes [#/volume] in Blood by Automated count 1.00-4.8 [facility] Lymphocytes [#/volume] in Bl ood by Automated countOrdered By: Yelitza Ruedaers on 08-24-2024 Lymphocytes (Bld) [#/Vol] 1.9 10*3/uL Normal 1.00-4.8 [facility] Comment on above: Order Comment: Reaso n for Exam Laboratory exam ordered as part of routine general medical e Performed By: #### C BC #### [facility] [address] [place] [address] Lymphocytes/100 WBC Auto (Bl d)Ordered By: Yelitza Zambrano on 08-24-2024 Lymphocytes/100 WBC (Bld) Lymphocytes/100 leukocytes in Blood by Automated count . [facility] Lymphocytes/100 leukocytes i n Blood by Automated countOrdered By: Yelitza Zambrano on 08-24-2024 Lymphocytes/100 WBC (Bld) 26.0 % Normal . [facility] Comment on above: Order Comment: Reaso n for Exam Laboratory exam ordered as part of routine general medical e Performed By: #### C BC #### [facility] [address] [place] [address] MCH Auto (RBC) [Entitic mass ]Ordered By: Yelitza Zambrano on 08-24-2024 MCH (RBC) [Entitic mass] MCH [Entitic mass] by Automated count 24.7-34.3 [facility] MCH [Entitic mass] by Automa leonila countOrdered By: Yelitza Zambrano on 08-24-2024 MCH (RBC) [Entitic mass] 32.3 pg Normal 24.7-34.3 [facility] Comment on above: Order Comment: Reaso n for Exam Laboratory exam ordered as part of routine general medical e Performed By: #### C BC #### [facility] [address] [place] [address] MCHC Auto (RBC) [Mass/Vol]Or dered By: Yelitza Zambrano on 08-24-2024 MCHC (RBC) [Mass/Vol] 33.7 g/dL 32.0-35.0 [facility] MCHC (RBC) [Mass/Vol] MCHC [Mass/volume] by Automated count 32.0-35.0 [facility] MCV Auto (RBC) [Entitic vol] Ordered By: Yelitza Zambrano on 08-24-2024 MCV (RBC) [Entitic vol] MCV [Entitic vol ume] by Automated count 80-100 [facility] MCV [Entitic volume] by Auto mated countOrdered By: Yelitza Zambrano on 08-24-2024 MCV (RBC) [Entitic vol] 95.7 fL Normal 80-100 [facility] Comment on above: Order Comment: Reaso n for Exam Laboratory exam ordered as part of routine general medical e Performed By: #### C BC #### [address] Monocytes Auto (Bld) [#/Vol] Ordered By: Yelitza Zambrano on 08-24-2024 Monocytes (Bld) [#/Vol] Automated blood monocyte count 0.0-0.8 [facility] Monocytes/100 WBC Auto (Bld) Ordered By: Yelitza Zambrano on 08-24-2024 Monocytes/100 WBC (Bld) Automated monocyte % . [facility] Neutrophils Auto (Bld) [#/Vo l]Ordered By: Yelitza Zambrano on 08-24-2024 Neutrophils (Bld) [#/Vol] Neutrophils [#/volume] in Blood by Automated count 1.8-7.7 [facility] Neutrophils [#/volume] in Bl ood by Automated countOrdered By: Yelitza Zambrano on 08-24-2024 Neutrophils (Bld) [#/Vol] 4.6 10*3/uL Normal 1.8-7.7 [facility] Comment on above: Order Comment: Reaso n for Exam Laboratory exam ordered as part of routine general medical e Performed By: #### C BC #### [place] [address] [place] Neutrophils/100 WBC Auto (Bl d)Ordered By: Yelitza Zambrano on 08-24-2024 Neutrophils/100 WBC (Bld) Automated neutrophil % . [facility] No Panel InformationOrdered By: Yelitza Zambrano on 08-24-2024 Estimated GFR (CKD-EPI) > 60.0 mL/Min [facility] Creatinine Clearance (Chem N/A [facility] Nucleated erythrocytes [Pres ence] in Blood by Automated countOrdered By: Yelitza Zambrano on 08-24-2024 Nucleated RBC Auto Ql (Bld) 0.1 /100{WBC} 0-0.5 [facility] Nucleated RBC Auto Ql (Bld) Nucleated erythrocytes [Presence] in Blood by Automated count 0-0.5 [facility] Platelet mean volume Auto (B ld) [Entitic vol]Ordered By: Yelitza Zambrano on 08-24-2024 Platelet mean volume (Bld) [Entitic vol] Platelet mean volume [Entitic volume] in Blood by Automated count 6.3-10.7 [facility] Platelet mean volume [Entiti c volume] in Blood by Automated countOrdered By: Yelitza Zambrano on 08-24-2024 Platelet mean volume (Bld) [Entitic vol] 9.0 fL Normal 6.3-10.7 [facility] Comment on above: Order Comment: Reaso n for Exam Laboratory exam ordered as part of routine general medical e Performed By: #### C BC #### [facility] [facility] [address] [place] [address] Platelets Auto (Bld) [#/Vol] Ordered By: Yelitza Zambrano on 08-24-2024 Platelets (Bld) [#/Vol] Platelets [#/vol ume] in Blood by Automated count 150-450 [facility] Platelets [#/volume] in Bloo d by Automated countOrdered By: Yelitza Zambrano on 08-24-2024 Platelets (Bld) [#/Vol] 290 10*3/uL Normal 150-450 [facility] Comment on above: Order Comment: Reaso n for Exam Laboratory exam ordered as part of routine general medical e Performed By: #### C BC #### [facility] [address] [place], [place] [id number] [place] Potassium [Moles/volume] in Serum or PlasmaOrdered By: Yelitza Zambrano on 08-24-2024 Potassium [Moles/Vol] 4.6 mmol/L Normal 3.5-5.1 [facility] Comment on above: Order Comment: Reaso n for Exam Laboratory exam ordered as part of routine general medical e Performed By: #### T SH3 wRFLX, LIPID, CMP, [id number] #### [facility] [address] [place] [address] [facility] Potassium [Moles/Vol] Potassium [Moles/volume] in Serum or Plasma 3.5-5.1 [facility] Protein [Mass/volume] in Ser um or PlasmaOrdered By: Yelitza Zambrano on 08-24-2024 Protein [Mass/Vol] 6.3 g/dL Low 6.4-8.9 [facility] Comment on above: Order Comment: Reaso n for Exam Laboratory exam ordered as part of routine general medical e Performed By: #### T SH3 wRFLX, LIPID, CMP, [id number] #### [facility] [address] [place] [address] [facility] Protein [Mass/Vol] Protein [Mass/volume ] in Serum or Plasma Low 6.4-8.9 [facility] RBC Auto (Bld) [#/Vol]Ordere d By: Yelitza Zambrano on 08-24-2024 RBC (Bld) [#/Vol] Erythrocytes [#/volume] in Blood by Automated count 3.60-5.00 [facility] Serum globulin measurement b y calculation (mass/volume)Ordered By: Yelitza Zambrano on 08-24-2024 Globulin (S) [Mass/Vol] 2.0 g/dL Normal [facility] Comment on above: Order Comment: Reaso n for Exam Laboratory exam ordered as part of routine general medical e Performed By: #### T SH3 wRFLX, LIPID, CMP, [id number] #### [facility] [address] [place] [address] [facility] Serum or plasma albumin/glob ulin mass ratioOrdered By: Yelitza Zambrano on 08-24-2024 Albumin/Globulin [Mass ratio] 2.2 {ratio} Normal [facility] Comment on above: Order Comment: Reaso n for Exam Laboratory exam ordered as part of routine general medical e Performed By: #### T SH3 wRFLX, LIPID, CMP, [id number] #### [facility] [address] Albumin/Globulin [Mass ratio] Serum or plasma albumin/globulin mass ratio [facility] Serum or plasma anion gap de terminationOrdered By: Yelitza Zambrano on 08-24-2024 Anion gap [Moles/Vol] 10.2 mmol/L Normal 6.0-15.0 [facility] Comment on above: Order Comment: Reaso n for Exam Laboratory exam ordered as part of routine general medical e Performed By: #### T SH3 wRFLX, LIPID, CMP, [id number] #### [facility] [address] [place] [address] Anion gap [Moles/Vol] Serum or plasma an ion gap determination 6.0-15.0 [facility] Serum or plasma high density lipoprotein (HDL) cholesterol measurementOrdered By: Yelitza Zambrano on 08-24-2024 Cholesterol in HDL [Mass/Vol] 50 mg/dL Normal 23-92 [facility] Comment on above: HDL CHOL ATP-III CLA SSIFICATION Cardiovascular RiskHDL > or equal to 60 mg/dL LOWHDL < 40 mg/dL HIGH Order Comment: Reaso n for Exam Laboratory exam ordered as part of routine general medical e Result Comment: HDL CHOL ATP-III CLASSIFICATION Cardiovascular Risk HDL > or equal to 60 mg/dL LOW HDL < 40 mg/dL HIGH Performed By: #### T SH3 wRFLX, LIPID, CMP, [id number] #### [facility] [address] [place] [address] [place] Serum or plasma total choles terol/high density lipoprotein (HDL) cholesterol mass ratOrdered By: Yelitza Zambrano on 08-24-2024 Cholesterol.total/Camille sterol in HDL [Mass ratio] 4.0 {ratio} Normal <5.0 [facility] Comment on above: Order Comment: Reaso n for Exam Laboratory exam ordered as part of routine general medical e Performed By: #### T SH3 wRFLX, LIPID, CMP, [id number] #### [facility] [address] Cholesterol.total/Camille sterol in HDL [Mass ratio] Serum or plasma total cholesterol/high density lipoprotein (HDL) cholesterol mass rat <5.0 [facility] Sodium [Moles/volume] in Ser um or PlasmaOrdered By: Yelitza Zambrano on 08-24-2024 Sodium [Moles/Vol] 141 mmol/L Normal 136-145 [facility] Comment on above: Order Comment: Reaso n for Exam Laboratory exam ordered as part of routine general medical e Performed By: #### T SH3 wRFLX, LIPID, CMP, [id number] #### [facility] [address] Sodium [Moles/Vol] Sodium [Moles/volume ] in Serum or Plasma 136-145 [facility] Thyroid Stim Hormone w/Rflxo n 08-24-2024 Thyroid Stim Hormone w/Rflx 0.93 u[iU]/mL Normal 0.45-5.33 [facility] Comment on above: Order Comment: Reaso n for Exam Laboratory exam ordered as part of routine general medical e Performed By: #### T SH3 wRFLX, LIPID, CMP, [id number] #### [facility] [address] Thyrotropin [Units/volume] i n Serum or PlasmaOrdered By: Yelitza Zambrano on 08-24-2024 TSH Qn 0.93 m[IU]/L 0.45-5.33 [facility] TSH Qn Thyrotropin [Units/volume] in Serum or Plasma 0.45-5.33 [facility] Triglyceride [Mass/volume] i n Serum or PlasmaOrdered By: Yelitza Zambrano on 08-24-2024 Triglyceride [Mass/Vol] 165 mg/dL High 0-149 [facility] Comment on above: TRIG ATP III CLASSIF ICATIONTRIG less than 150 mg/dL NormalTRIG 150-199 mg/dL Borderline highTRIG 200-500 mg/dL High TRIG greater than 500 mg/dL Very highStandard traceable to the Center for Disease Conrtrol and Prevention (CDC) test method. Triglyceride [Mass/Vol] Triglyceride [Mass/volume] in Serum or Plasma High 0-149 [facility] Comment on above: TRIG ATP III CLASSIF ICATIONTRIG less than 150 mg/dL NormalTRIG 150-199 mg/dL Borderline highTRIG 200-500 mg/dL High TRIG greater than 500 mg/dL Very highStandard traceable to the Center for Disease Conrtrol and Prevention (CDC) test method. Urea nitrogen [Mass/volume] in Serum or PlasmaOrdered By: Yelitza Zambrano on 08-24-2024 Urea nitrogen [Mass/Vol] 22 mg/dL Normal - [facility] Comment on above: Order Comment: Reaso n for Exam Laboratory exam ordered as part of routine general medical e Performed By: #### T SH3 wRFLX, LIPID, CMP, [id number] #### [facility] [address] [place] [address] [facility] Urea nitrogen [Mass/Vol] Urea nitrogen [Mass/volume] in Serum or Plasma 05-14 [facility] Vitamin D 25 Hydroxy Totalon 08-24-2024 Vitamin D 25 Hydroxy Total 80.1 ng/mL Normal 30-100 [facility] Comment on above: Order Comment: Reaso n for Exam Laboratory exam ordered as part of routine general medical e Result Comment: JIGNA MIN D STATUS 25([place])VITAMIN D RANGE (ng/mL) Deficient <20 Insufficient 20 to <30 Sufficient 30 to 100 Reference: Morales MF,Ave NC, Myah SHEPHERD, et al. Evaluation,treatment, and prevention of vitamin D deficiency; an Endocrine Society clinical practice guideline. JCEM. 2010; 96(7):1911-30. PERFORMED BY: [facility] [address] [place] [address] PATHOLOGIST SHALE PLANER OPERATOR LATRICE RUTH M.D. Performed By: #### T SH3 wRFLX, LIPID, CMP, [id number] #### [facility] [address] [place] [address] [facility] Vitamin D+Metabolites [Mass/ volume] in Serum or PlasmaOrdered By: Yelitza Zambrano on 08-24-2024 Vitamin D+Metabolites [Mass/Vol] 80.1 ng/mL 30-100 [facility] Comment on above: VITAMIN D STATUS 25( [place])VITAMIN D RANGE (ng/mL) Deficient <20 Insufficient 20 to <30Sufficient 30 to 100Reference: Ave Barrientos, Myah SHEPHERD, et al. Evaluation,treatment, and prevention of vitamin D deficiency; an Endocrine Society clinical practice guideline. JCEM. 2010; 96(7):1911-30. Vitamin D+Metabolites [Mass/Vol] Vitamin D+Metabolites [Mass/volume] in Serum or Plasma 30-100 [facility] Comment on above: VITAMIN D STATUS 25( [place])VITAMIN D RANGE (ng/mL) Deficient <20 Insufficient 20 to <30Sufficient 30 to 100Reference: Ave Barrientos, Myah SHEPHERD, et al. Evaluation,treatment, and prevention of vitamin D deficiency; an Endocrine Society clinical practice guideline. JCEM. 2010; 96(7):1911-30. WBC Auto (Bld) [#/Vol]Ordere d By: Yelitza Zambrano on 08-24-2024 WBC (Bld) [#/Vol] Leukocytes [#/volume ] in Blood by Automated count 3.8-11.6 [facility] C Urineon 12-19-2023 Bacteria identified Cx Nom (U) Microbiology PROCEDURE: Urine Culture [R1] SOURCE: U CleanCatch BODY SITE: COLLECTED DATE/TIME: 12/17/2023 15:02 EST RECEIVED DATE/TIME: 12/17/2023 19:26 EST START DATE/TIME: 12/17/2023 19:26 EST FREE TEXT SOURCE: THEODORE KERN, SHRUTHI SANCHEZ PA-C, SHRUTHI Talavera FINAL REPORTS Final Report [] Verified Date/Time: 12/19/2023 10:16 EST >100,000 cfu/ml Escherichia coli <10,000 cfu/ml Mixed skin contaminants SUSCEPTIBILITY RESULTS LEGEND: S=Susceptible, N/R=Not Reported, Blank=Data not available, or drug not advisable or tested, I=Intermediate, ESBL=Extended spectrum beta-lactamase, R=Resistant, TFG=Thymidine-depende nt strain, SUZANNE=Beta-lactamase positive, RAFAEL=mcg/m;(mg/L), S*=Predicted susceptible interp, R*=Predicted resistant interp EC Antibiotic RAFAEL Dilutn RAFAEL Interp Amikacin <=16 S Ampicillin <=8 S Ampicillin/ <=8/4 S Sulbactam Aztreonam <=4 S Cefazolin <=2 S Cefepime <=2 S Cefoxitin <=8 S Ceftazidime <=1 S Ceftazidime/ <=8 S Avibactam Ceftriaxone <=1 S Ciprofloxacin <=1 S Ertapenem <=0.5 S Gentamicin <=4 S Levofloxacin <=2 S Meropenem <=1 S Nitrofurantoin <=32 S Piperacillin/ <=16 S Tazobactam Tetracycline <=4 S Tigecycline <=2 S Tobramycin <=4 S Trimethoprim/ <=2/38 S Sulfa Performing Locations R1: This test was performed at: [facility], [address] [place] [address], [id number] , , [facility] Comment on above: Performed By: #### 2 [id number] #### [facility] [address] [place] [id number] [place] 12-19-2023 Screens [id number]# 1.00TIFF [facility] Patient Educationon 12-17-19 24 Patient Education Nephrology Dietary Guidelines to Help Prevent Kidney Stones Kidney stones are deposits of minerals and salts that form inside your kidneys. Your risk of developing kidney stones may be greater depending on your diet, your lifestyle, the medicines you take, and whether you have certain medical conditions. Most people can lower their risks of developing kidney stones by following these dietary guidelines. Your dietitian may give you more specific instructions depending on your overall health and the type of kidney stones you tend to develop. What are tips for following this plan? Reading food labels ? Choose foods with no salt added or low-salt labels. Limit your salt (sodium) intake to less than 1,500 mg a day. ? Choose foods with calcium for each meal and snack. Try to eat about 300 mg of calcium at each meal. Foods that contain 200?500 mg of calcium a serving include: ? 8 oz (237 mL) of milk, calcium-fortifiednon- dairy milk, and calcium-fortifiedfrui t juice. Calcium-fortified means that calcium has been added to these drinks. ? 8 oz (237 mL) of kefir, yogurt, and soy yogurt. ? 4 oz (114 g) of tofu. ? 1 oz (28 g) of cheese. ? 1 cup (150 g) of dried figs. ? 1 cup (91 g) of cooked broccoli. ? One 3 oz (85 g) can of sardines or mackerel. Most people need 1,000?1,500 mg of calcium a day. Talk to your dietitian about how much calcium is recommended for you. Shopping ? Buy plenty of fresh fruits and vegetables. Most people do not need to avoid fruits and vegetables, even if these foods contain nutrients that may contribute to kidney stones. ? When shopping for convenience foods, choose: ? Whole pieces of fruit. ? Pre-made salads with dressing on the side. ? Low-fat fruit and yogurt smoothies. ? Avoid buying frozen meals or prepared deli foods. These can be high in sodium. ? Look for foods with live cultures, such as yogurt and kefir. ? Choose high-fiber grains, such as whole-wheat breads, oat bran, and wheat cereals. Cooking ? Do not add salt to food when cooking. Place a salt shaker on the table and allow each person to add their own salt to taste. ? Use vegetable protein, such as beans, textured vegetable protein (TVP), or tofu, instead of meat in pasta, casseroles, and soups. Meal planning ? Eat less salt, if told by your dietitian. To do this: ? Avoid eating processed or pre-made food. ? Avoid eating fast food. ? Eat less animal protein, including cheese, meat, poultry, or fish, if told by your dietitian. To do this: ? Limit the number of times you have meat, poultry, fish, or cheese each week. Eat a diet free of meat at least 2 days a week. ? Eat only one serving each day of meat, poultry, fish, or seafood. ? When you prepare animal proteins, cut pieces into small portion sizes. For most meat and fish, one serving is about the size of the palm of your hand. ? Eat at least five servings of fresh fruits and vegetables each day. To do this: ? Keep fruits and vegetables on hand for snacks. ? Eat one piece of fruit or a handful of berries with breakfast. ? Have a salad and fruit at lunch. ? Have two kinds of vegetables at dinner. ? You may be told to limit foods that are high in a substance called oxalate. These include: ? Spinach (cooked), rhubarb, beets, sweet potatoes, and Brazilian chard. ? Peanuts. ? Potato chips, s[place]an fries, and baked potatoes with skin on. ? Nuts and nut products. ? Chocolate. ? If you regularly take a diuretic medicine, make sure to eat at least 1 or 2 servings of fruits or vegetables that are high in potassium each day. These include: ? Avocado. ? Banana. ? [place], prune, carrot, or tomato juice. ? Baked potato. ? Cabbage. ? Beans and split peas. Lifestyle ? Drink enough fluid to keep your urine pale yellow. This is the most important thing you can do. Spread your fluid intake throughout the day. ? If you drink alcohol: ? Limit how much you have to: ? 0?1 drink a day for women who are not . ? 0?2 drinks a day for men. ? Know how much alcohol is in your drink. In the [place] one drink equals one 12 oz bottle of beer (355 mL), one 5 oz glass of wine (148 mL), or one 1? oz glass of hard liquor (44 mL). ? Lose weight if told by your health care provider. Work with your dietitian to find an eating plan and weight loss strategies that work best for you. General information ? Talk to your health care provider and dietitian about taking daily supplements. Depending on your health and the cause of your kidney stones, you may be told: ? Do not take high-dose supplements of vitamin C (1,000 mg a day or more). ? To take a calcium supplement. ? To take a daily probiotic supplement. ? To take other supplements such as magnesium, fish oil, or vitamin B6. ? Take byqe-emz-lgdyrko and prescription medicines only as told by your health care provider. These include supplements. What foods sh (more content not included)... Normal [facility] Urology Office/Clinic Noteon 12-17-2023 Urology Office/Clinic Note HPI Staff 63 year old female here for 6 month with KUB. Previous DX: renal US, hypercalciuria, abnormal urinalysis and H/O kidney stones. S/P RT. ESWL done 06/20/23. KUB done 11/25/23. Pt. is not currently taking HCTZ due to tmd teacher recommending pt d/c medication. Dysuria: no Incomplete bladder emptying: no Hematuria: no Frequency: 2-3 hours Urgency: no Nocturia: 0-1 Stream: good stream Post void dripping: no Wearing pads/ Depends: no Urge incontinence:a few times a month Stress incontinence: occasionally without Sensory Awareness: no Abdominal pain: no Flank pain: no History of Present Illness staff HPI reviewed and agree. Review of Systems PHQ Score Initial Depression Screen Score: 0 SCORE no fever, chills, malaise, myalgia. no rash/lesions. no chest pain, palpitations, or SOB. no abdominal pain, nausea, vomiting. no unilateral calf swelling, redness, pain Physical Exam Vitals & Measurements HT: 65 in HT: 165 cm WT: 59.9 kg WT: 131.78 lb BMI: 22 General: nontoxic, NAD Mouth: moist mucosa Lungs: normal respiratory effort Cardio: regular rate, good distal perfusion Abdomen: nondistended, no suprapubic distention or tenderness, no CVA tenderness Neurologic: Grossly normal Skin: No rashes or suspicious lesions Assessment/Plan PRW pt BBS 10/good control 1. Kidney stone (N20.0: Calculus of kidney) Hx of stones in the past, treated by Dr. Schultz. Several lithos. Never been able to pass on her own. [facility] [place]23 due to flank pain and gross hematuria. CT AP wo con 02/06/23 [facility] [place] - Bilateral intrarenal stones measuring up to 6 mm greatest diameter. L kidney is wnl. Mild R hydronephrosis with a 7 mm renal stone in the proximal right ureter. There is no distal hydroureter. KUB 02/08/23 - Stone up to 7 mm over R kidney. Cysto, R UD, R URS, holmium laser of 7-8 mm R ureteral stone, basket extraction, R ureteral stent placement 02/08/23. Cysto, R stent removal 02/19/23. S/p R ESWL by Dr. Sosa 06/20/23. Stone analysis - 100% ca ox monohydrate. Current KUB 11/25/23 is neg for calcifications being identified over the bilateral renal shadows or expected course of the ureters. -Follow up in 1 year w/ KUB & renal US 2. Hypercalciuria (R82.994: Hypercalciuria) Has also had metabolic workup 6 yrs ago. Per pt, was found to have too much Ca. Pt was taking Ca supplement at the time.[1] Metabolic workup 03/03/23 - U24 Ca 355 borderline high (0-320). Blood Ca 9.5 wnl. Volume 2,400 cc. Pt was started on HCTZ 12.5 mg qd at last visit, however pt called shortly after starting medication stating that tmd teacher directed pt to stop it. Pt clarifies today that a hospitalist actually recommended pt to stop medication, not cardiology. Pt states tmd teacher said it was ok to take. However, pt has no new stones since last f/u visit (without the med) and does admit to chronic hypotension. Discussed the risks of taking HCTZ with hypotension. Discussed risks of stone formation. -Pt and I agree she will remain off HCTZ for now. If forms new stones before next visit then we will consider restarting it. Will also repeat 24hr urine prior to next ov. 3. UTI (urinary tract infection) (N39.0: Urinary tract infection, site not specified) Prior UA showed positive nitrates and small leuks. Previously stated that she thinks her urine smells foul all of the time, like horse urine. Strongest smell when she doesn't drink enough and odor goes away. Asx of UTI at that time, however culture was positive. >100k E Coli. Tx'd w/ Bactrim. UA today shows positive nitrates and large leuks. Still c/o of strong odor. Denies any other UTI sx. -Will send for culture. Will treat if culture is positive. Pt to be called with results. 4. History of UTI (Z87.440: Personal history of urinary (tract) infections) See #3 Follow-up With When Contact Information THEODORE KERN, SHRUTHI Talavera, URL [address] [facility] [place] [address] Additional Instructions: 1 year with KUB, renal US, and litholink Patient Education Dietary Guidelines to Help Prevent Kidney Stones Documentation recorded by the tommie Pena accurately reflects the services(s) I performed and decisions made by me. Authenticated by Shruthi Sanchez PA-C on 12/17/2023 16:24:29. IJoan, personally scribed for Shruthi Sanchez PA-C on 12/17/2023 15:11:03. . Problem List/Past Medical History Ongoing Abnormal urinalysis Foreign body in bladder History of kidney stones History of UTI Hypercalciuria Renal stones Smoker Stress incontinence Ureteral stone with hydronephrosis Urgency of urination UTI (urinary tract infection) Historical arthiritis back surgery Endometriosis foot surgery Hypotension lump removed from knee Tonsillectomy Tubal ligation Procedure/Surgical History Cysto, right JJ stent , ESWL right renal calculus (05/31/2016), (more content not included)... Normal [facility] Comment on above: Result Comment: Elec tronically Signed By: SHRUTHI SANCHEZ PA-C\.br\Date and Time Signed: 12/17/23 16:24 EST\.br\Electronically Co-Signed By: Joan Pena.br\Date and Time Co-Signed: 12/17/23 15:11 EST Office Visiton 10-29-2023 Follow-up visit [id number] Sheyla Hogan 1960 F Date Provider Department Center 10/29/2023 JOCELYN STEVENSON LALA [facility] Family History Problem Relation Age of Onset Other Father Family Status - Relation Status Age at Father Level of Service:16880 SD OFFICE/OUTPATIENT NEW MODERATE MDM 45 MINUTES Normal [facility] Alanine aminotransferase [En zymatic activity/volume] in Serum or PlasmaOrdered By: Yelitza Zambrano on 09-02-2023 ALT [Catalytic activity/Vol] 15 U/L 7-52 [facility] Albumin [Mass/volume] in Ser um or Plasma by Bromocresol green (BCG) dye binding methoOrdered By: Yelitza Zambrano on 09-02-2023 Albumin BCG dye [Mass/Vol] 4.4 g/dL 3.5-5.7 [facility] Alkaline phosphatase [Enzyma tic activity/volume] in Serum or PlasmaOrdered By: Yelitza Zambrano on 09-02-2023 ALP [Catalytic activity/Vol] 65 U/L 34-104 [facility] Aspartate aminotransferase [ Enzymatic activity/volume] in Serum or PlasmaOrdered By: Yelitza Zambrano on 09-02-2023 AST [Catalytic activity/Vol] 17 U/L 13-39 [facility] Basophils Auto (Bld) [#/Vol] Ordered By: Yelitza Zambrano on 09-02-2023 Basophils (Bld) [#/Vol] 0.1 10*3/uL 0.0-0.2 [facility] Basophils/100 WBC Auto (Bld) Ordered By: Yelitza Zambrano on 09-02-2023 Basophils/100 WBC (Bld) 1.3 % . [facility] Bilirubin.total [Mass/volume ] in Serum or PlasmaOrdered By: Yelitza Zambrano on 09-02-2023 Bilirubin [Mass/Vol] 0.3 mg/dL 0.3-1.0 [facility] Calcium [Mass/volume] in Ser um or PlasmaOrdered By: Yelitza Zambrano on 09-02-2023 Calcium [Mass/Vol] 9.5 mg/dL 8.6-10.3 [facility] Carbon dioxide, total [Moles /volume] in Serum or PlasmaOrdered By: Yelitza Zambrano on 09-02-2023 CO2 [Moles/Vol] 29.1 mmol/L 21.0-31.0 [facility] Chloride [Moles/volume] in S joselin or PlasmaOrdered By: Yelitza Zambrano on 09-02-2023 Chloride [Moles/Vol] 108 mmol/L 98-107 [facility] Cholesterol [Mass/volume] in Serum or PlasmaOrdered By: Yelitza Zambrano on 09-02-2023 Cholesterol [Mass/Vol] 220 mg/dL 140-200 [facility] Comment on above: Chol less than 200 m g/dl low riskChol 201-239 mg/dl borderline riskChol 240 mg/dl and greater high risk Cholesterol in LDL Calc [Mas s/Vol]Ordered By: Yelitza Zambrano on 09-02-2023 Cholesterol in LDL [Mass/Vol] 139 mg/dL 0-100 [facility] Comment on above: LDL ATP III CLASSIFI CATIONLDL less than 100 mg/dL OptimalLDL 100-129 mg/dL Near or above optimalLDL 130-159 mg/dL Borderline highLDL 160-189 mg/dL HighLDL greater than 189 mg/dL Very high Cholesterol in VLDL Calc [Ma ss/Vol]Ordered By: Yelitza Zambrano on 09-02-2023 Cholesterol in VLDL [Mass/Vol] 31 mg/dL [facility] Creatinine [Mass/volume] in Serum or PlasmaOrdered By: Yelitza Zambrano on 09-02-2023 Creatinine [Mass/Vol] 0.71 mg/dL 0.60-1.20 [facility] Eosinophils Auto (Bld) [#/Vo l]Ordered By: Yelitza Zambrano on 09-02-2023 Eosinophils (Bld) [#/Vol] 0.3 10*3/uL 0.0-0.45 [facility] Eosinophils/100 WBC Auto (Bl d)Ordered By: Yelitza Zambrano on 09-02-2023 Eosinophils/100 WBC (Bld) 3.4 % . [facility] Erythrocyte distribution wid th Auto (RBC) [Ratio]Ordered By: Yelitza Zambrano on 09-02-2023 Erythrocyte distribution width (RBC) [Ratio] 12.6 % 11.9-15.3 [facility] Globulin Calc (S) [Mass/Vol] Ordered By: Yelitza Zambrano on 09-02-2023 Globulin (S) [Mass/Vol] 1.9 g/dL [facility] Glucose [Mass/volume] in Ser um or PlasmaOrdered By: Yelitza Zambrano on 09-02-2023 Glucose [Mass/Vol] 98 mg/dL 70-100 [facility] Comment on above: ADA recommended refe rence rangeRandom Glucose Reference Range is dependent on time and content of last meal. Glucose of more than 200 mg/dL in a nonstressed, ambulatory subject supports the diagnosis of Diabetes Mellitus. Glucose mean value [Mass/vol ume] in Blood Estimated from glycated hemoglobinOrdered By: Yelitza Zambrano on 09-02-2023 Average glucose Estimated from glycated hemoglobin (Bld) [Mass/Vol] 123 mg/dL [facility] Hematocrit Auto (Bld) [Volum e fraction]Ordered By: Yelitza Zambrano on 09-02-2023 Hematocrit (Bld) [Volume fraction] 41.0 % 34.0-46.4 [facility] Hemoglobin A1c percentageOrd ered By: Yelitza Zambrano on 09-02-2023 HbA1c (Bld) [Mass fraction] 5.9 % 4.3-5.6 [facility] Comment on above: Increased risk for d iabetes: 5.7 - 6.4diabetes: >6.4glycemic control for adults with diabetes: <7.0 Hemoglobin [Mass/volume] in BloodOrdered By: Yelitza Zambrano on 09-02-2023 Hemoglobin (Bld) [Mass/Vol] 13.7 g/dL 11.8-15.4 [facility] Leukocytes [#/volume] correc leonila for nucleated erythrocytes in Blood by Automated counOrdered By: Yelitza Zambrano on 09-02-2023 WBC corrected for nucl RBC Auto (Bld) [#/Vol] 7.7 10*3/uL 3.8-11.6 [facility] Lymphocytes Auto (Bld) [#/Vo l]Ordered By: Yelitza Zambrano on 09-02-2023 Lymphocytes (Bld) [#/Vol] 2.0 10*3/uL 1.00-4.8 [facility] Lymphocytes/100 WBC Auto (Bl d)Ordered By: Yelitza Zambrano on 09-02-2023 Lymphocytes/100 WBC (Bld) 25.9 % . [facility] MCH Auto (RBC) [Entitic mass ]Ordered By: Yelitza Zambrano on 09-02-2023 MCH (RBC) [Entitic mass] 31.8 pg 24.7-34.3 [facility] MCHC Auto (RBC) [Mass/Vol]Or dered By: Yelitza Zambrano on 09-02-2023 MCHC (RBC) [Mass/Vol] 33.3 g/dL 32.0-35.0 [facility] MCV Auto (RBC) [Entitic vol] Ordered By: Yelitza Zambrano on 09-02-2023 MCV (RBC) [Entitic vol] 95.7 fL 80-100 [facility] Monocytes Auto (Bld) [#/Vol] Ordered By: Yelitza Zambrano on 09-02-2023 Monocytes (Bld) [#/Vol] 0.5 10*3/uL 0.0-0.8 [facility] Monocytes/100 WBC Auto (Bld) Ordered By: Yelitza Zambrano on 09-02-2023 Monocytes/100 WBC (Bld) 6.1 % . [facility] Neutrophils Auto (Bld) [#/Vo l]Ordered By: Yelitza Zambrano on 09-02-2023 Neutrophils (Bld) [#/Vol] 4.9 10*3/uL 1.8-7.7 [facility] Neutrophils/100 WBC Auto (Bl d)Ordered By: Yelitza Zambrano on 09-02-2023 Neutrophils/100 WBC (Bld) 63.3 % . [facility] No Panel InformationOrdered By: Yelitza Zambrano on 09-02-2023 Estimated GFR (CKD-EPI) > 60.0 mL/Min [facility] Creatinine Clearance (Chem N/A [facility] Nucleated erythrocytes [Pres ence] in Blood by Automated countOrdered By: Yelitza Zambrano on 09-02-2023 Nucleated RBC Auto Ql (Bld) 0.0 /100{WBC} 0-0.5 [facility] Platelet mean volume Auto (B ld) [Entitic vol]Ordered By: Yelitza Zambrano on 09-02-2023 Platelet mean volume (Bld) [Entitic vol] 9.1 fL 6.3-10.7 [facility] Platelets Auto (Bld) [#/Vol] Ordered By: Yelitza Zambrano on 09-02-2023 Platelets (Bld) [#/Vol] 308 10*3/uL 150-450 [facility] Potassium [Moles/volume] in Serum or PlasmaOrdered By: Yelitza Zambrano on 09-02-2023 Potassium [Moles/Vol] 4.4 mmol/L 3.5-5.1 [facility] Protein [Mass/volume] in Ser um or PlasmaOrdered By: Yelitza Zambrano on 09-02-2023 Protein [Mass/Vol] 6.3 g/dL 6.4-8.9 [facility] RBC Auto (Bld) [#/Vol]Ordere d By: Yelitaz Zambrano on 09-02-2023 RBC (Bld) [#/Vol] 4.29 10*6/uL 3.60-5.00 [facility] Serum or plasma albumin/glob ulin mass ratioOrdered By: Yelitza Zambrano on 09-02-2023 Albumin/Globulin [Mass ratio] 2.3 {ratio} [facility] Serum or plasma anion gap de terminationOrdered By: Yeiltza Zambrano on 09-02-2023 Anion gap [Moles/Vol] 10.3 mmol/L 6.0-15.0 [facility] Serum or plasma high density lipoprotein (HDL) cholesterol measurementOrdered By: Yelitza Zambrano on 09-02-2023 Cholesterol in HDL [Mass/Vol] 50 mg/dL 23- [facility] Comment on above: HDL CHOL ATP-III CLA SSIFICATION Cardiovascular RiskHDL > or equal to 60 mg/dL LOWHDL < 40 mg/dL HIGH Serum or plasma total choles terol/high density lipoprotein (HDL) cholesterol mass ratOrdered By: Yelitza Zambrano on 09-02-2023 Cholesterol.total/Camille sterol in HDL [Mass ratio] 4.4 {ratio} <5.0 [facility] Sodium [Moles/volume] in Ser um or PlasmaOrdered By: Yelitza Zambrano on 09-02-2023 Sodium [Moles/Vol] 143 mmol/L 136-145 [facility] Thyrotropin [Units/volume] i n Serum or PlasmaOrdered By: Yelitza Zambrano on 09-02-2023 TSH Qn 0.94 m[IU]/L 0.45-5.33 [facility] Triglyceride [Mass/volume] i n Serum or PlasmaOrdered By: Yelitza Zambrano on 09-02-2023 Triglyceride [Mass/Vol] 155 mg/dL 0-149 [facility] Comment on above: TRIG ATP III CLASSIF ICATIONTRIG less than 150 mg/dL NormalTRIG 150-199 mg/dL Borderline highTRIG 200-500 mg/dL High TRIG greater than 500 mg/dL Very highStandard traceable to the Center for Disease Conrtrol and Prevention (CDC) test method. Urea nitrogen [Mass/volume] in Serum or PlasmaOrdered By: Yelitza Zambrano on 09-02-2023 Urea nitrogen [Mass/Vol] 19 mg/dL 7-25 [facility] Vitamin D+Metabolites [Mass/ volume] in Serum or PlasmaOrdered By: Yelitza Zambrano on 09-02-2023 Vitamin D+Metabolites [Mass/Vol] 48.2 ng/mL 30-100 [facility] Comment on above: VITAMIN D STATUS 25( [place])VITAMIN D RANGE (ng/mL) Deficient <20 Insufficient 20 to <30Sufficient 30 to 100Reference: Morales MONTANEZ,Ave RODRÍGUEZ, Myah SHEPHERD, et al. Evaluation,treatment, and prevention of vitamin D deficiency; an Endocrine Society clinical practice guideline. JCEM. 2010; 96(7):1911-30. WBC Auto (Bld) [#/Vol]Ordere d By: Yelitza Zambrano on 09-02-2023 WBC (Bld) [#/Vol] 7.7 10*3/uL 3.8-11.6 [facility] Office Visiton 08-20-2023 Follow-up visit [id number] Sheyla Hogan 1960 F Date Provider Department Center 08/20/2023 Landon-KIMBERLI ARANDA CARD [facility] Family History Problem Relation Age of Onset Other Father Family Status - Relation Status Age at Father Level of Service:76862 [place] OFFICE/OUTPATIENT ESTABLISHED MOD MDM 30-39 MIN Normal [facility] Office Visiton 07-01-2023 Follow-up visit [id number] Sheyla Hogan 1960 F Date Provider Department Center 07/01/2023 SERGIO KUMAR CARD [facility] Family History Problem Relation Age of Onset Other Father Family Status - Relation Status Age at Father Level of Service:50109 [place] OFFICE/OUTPATIENT ESTABLISHED LOW MDM 20-29 MIN Normal [facility] CHEMISTRYOrdered By: Ailyn Morris on 03-03-2023 Creatine (U) [Moles/Vol] 57.8 mg/dL Normal >=10.0mg/dL [facility] Chem S Creatinine (24H U) [Moles/Time] 1387.2 mg/24hr Normal 1000.0 - 2000.0 mg/24hr [facility] Chem S Hrs Vu 24 h Invalid Interpretation Code [facility] Chem S Sodium (24H U) [Mass/Vol] 89 mmol/24 hr Normal 40 - 220 mmol/24 hr [facility] Chem S Sodium (U) [Moles/Vol] 37 mmol/L Normal >=10mmol/L [facility] Chem S Laboratory - Specimen inform ationOrdered By: Rochelle Morris on 03-03-2023 Specimen volume Unsp time (U) 2400 mL Invalid Interpretation Code [facility] SendOutsSS Reference Laboratory Testing Ordered By: Rochelle Morris on 03-03-2023 Hrs Vu Ref Lab 24 h Invalid Interpretation Code [facility] SendOutsSS CHEMISTRYOrdered By: SYSTEM SYSTEM on 02-20-2023 Anion gap [Moles/Vol] 13 mmol/L Normal 6 - 16 mEq/L F C Remisol Calcium [Mass/Vol] 9.5 mg/dL Normal 8.9 - 11. 1 mg/dL [facility] Remisol Chloride [Moles/Vol] 104 mmol/L Normal 101 - 1 11 mmol/L [facility] Remisol CO2 [Moles/Vol] 27 mmol/L Normal 21 - 31 mmol/L [facility] Remisol Creatinine [Mass/Vol] 0.9 mg/dL Normal 0.5 - 1.3 mg/dL [facility] Remisol GFR/1.73 sq M.predicted among non-blacks MDRD (S/P/Bld) [Vol rate/Area] 72 mL/min/1.73 m2 Normal >=59mL/min/1 .73 m2 [facility] Chem S Potassium [Moles/Vol] 4.5 mmol/L Normal 3.5 - 5.3 mmol/L [facility] Remisol Sodium [Moles/Vol] 139 mmol/L Normal 135 - 145 mmol/L [facility] Remisol Urate [Mass/Vol] 3.8 mg/dL Normal 2.2 - 7.4 mg/dL [facility] Remisol Urea nitrogen [Mass/Vol] 24 mg/dL High 5 - 21 mg/dL [facility] Remisol CALCULI, URINARYon 3 2,8 Dihydroxyadenine Normal [facility] Comment on above: Performed By: #### C ALCULI #### [facility] [address] [address] [address] Zurdo Medina Ammonium Acid Urate Normal [facility] Comment on above: Performed By: #### C ALCULI #### [facility] [address] [address] [address] Zurdo Medina Bilirubin Ql (U) Normal [facility] Comment on above: Performed By: #### C ALCULI #### [facility] [address] [address] [address] Zurdo Medina Ca Oxalate Dihydrate 80 % Normal [facility] Comment on above: Performed By: #### C ALCULI #### [facility] [address] [address] [address] Zurdo Medina CaHPO4 (Brushite) [facility] Comment on above: Performed By: #### C ALCULI #### [facility] [address] [address] [address] Zurdo Medina Calcium Bilirubinate Normal [facility] Comment on above: Performed By: #### C ALCULI #### [facility] [address] [address] [address] Zurdo Medina Calcium Carbonate [facility] Comment on above: Performed By: #### C ALCULI #### [facility] [address] [address] [address] Zurdo Medina Calcium Oxalate Monohydrate 20 % [facility] Comment on above: Performed By: #### C ALCULI #### [facility] [address] [address] [address] Zurdo Medina Calcium Palmitate [facility] Comment on above: Performed By: #### C ALCULI #### [facility] [address] [address] [address] Zurdo Medina Calcium Phosphate [facility] Comment on above: Performed By: #### C ALCULI #### [facility] [address] [address] [address] Zurdo Medina Calcium Stearate Normal [facility] Comment on above: Performed By: #### C ALCULI #### [facility] [address] [address] [address] Zurdo Medina Carbonate Apatite Normal [facility] Comment on above: Performed By: #### C ALCULI #### [facility] [address] [address] [address] Zurdo Medina Cellular Material [facility] Comment on above: Performed By: #### C ALCULI #### [facility] [address] [address] [address] Zurdo Medina Cholesterol [facility] Comment on above: Performed By: #### C ALCULI #### [facility] [address] [place] [address] Dr. Zurdo Medina Color (U) Syed Normal [facility] Comment on above: Performed By: #### C ALCULI #### [facility] [address] [place] [address] Dr. Zurdo Medina Comment Normal [facility] Comment on above: Performed By: #### C ALCULI #### [facility] [address] [place] [address] Dr. Zurdo Medina Comment Comment Normal [facility] Comment on above: Result Comment: Calc ulus received wet. Wet calculi must be dried before analysis, which delays reporting of results. Leaving calculi wet (such as water, saline, blood, urine) may lead to changes in composition. Performed By: #### C ALCULI #### [facility] [address] [place] [address] Dr. Zurdo Medina Comment: Comment Normal [facility] Comment on above: Result Comment: [facility] questions regarding Calculi Analysis contact [employer] at: [phone]. Performed By: #### C ALCULI #### [facility] [address] [place] [address] Dr. Zurdo Medina Composition Comment [facility] Comment on above: Result Comment: Perc entage (Represents the % composition) Performed By: #### C ALCULI #### [facility] [address] [place] [address] Dr. Zurdo Medina Cystine Normal [facility] Comment on above: Performed By: #### C ALCULI #### [facility] [address] [place] [address] Dr. Zurdo Medina Disclaimer: Comment Normal [facility] Comment on above: Result Comment: This test was developed and its performance characteristics determined by [employer]. It has not been cleared or approved by the Food and Drug Administration. Performed By: #### C ALCULI #### [facility] [address] [place] [address] Dr. Zurdo Medina Dried Blood [facility] Comment on above: Performed By: #### C ALCULI #### [facility] [address] [place] [address] Dr. Zurdo Medina Drug or Metabolite Normal [facility] Comment on above: Performed By: #### C ALCULI #### [facility] [address] [address] [address] Zurdo Medina Hydroxyapatite [facility] Comment on above: Performed By: #### C ALCULI #### [facility] [address] [address] [address] Zurdo Medina Mg NH4 PO4 (Struvite) [facility] Comment on above: Performed By: #### C ALCULI #### [facility] [address] [address] [address] Zurdo Medina MgHPO4 (Newberyite) [facility] Comment on above: Performed By: #### C ALCULI #### [facility] [address] [place] [address] Dr. Zurdo Medina Other component(s) Normal [facility] Comment on above: Performed By: #### C ALCULI #### [facility] [address] [address] [address] Zurdo Medina PDF . [facility] Comment on above: Performed By: #### C ALCULI #### [facility] [address] [address] [address] Zurdo Medina Photo Comment [facility] Comment on above: Result Comment: Phot ograph will follow under a separate cover Performed By: #### C ALCULI #### [facility] [address] [place] [address] Dr. Zurdo Medina Please note: Comment [facility] Comment on above: Result Comment: Calc joshua report will follow via computer, mail or director behavioral health delivery. Performed By: #### C ALCULI #### [facility] [address] [address] [address] Zurdo Medina Size 4x3 Normal [facility] Comment on above: Result Comment: Mult iple pieces received. Dimensions of the largest piece reported. Performed By: #### C ALCULI #### [facility] [address] [place] [address] Dr. Zurdo Medina Sodium Acid Urate Normal [facility] Comment on above: Performed By: #### C ALCULI #### [facility] [address] [address] [address] Zurdo Medina Source Comment [facility] Comment on above: Result Comment: Righ t Ureter Performed By: #### C ALCULI #### [facility] [address] [address] [address] Zurdo Medina [employer] [facility] Comment on above: Performed By: #### C ALCULI #### [facility] [address] [address] [address] Zurdo Medina Uric Acid [facility] Comment on above: Performed By: #### C ALCULI #### [facility] [address] [address] [address] Zurdo Medina Uric Acid Dihydrate Normal [facility] Comment on above: Performed By: #### C ALCULI #### [facility] [address] [address] [address] Zurdo Medina Weight 23 mg Normal [facility] Comment on above: Performed By: #### C ALCULI #### [facility] [address] [address] [address] Zurdo Medina Xanthine [facility] Comment on above: Performed By: #### C ALCULI #### [facility] [address] [address] [address] Zurdo Medina Vital Signs Date Time Vital Sign Value Performing Clinician Facility 11-16-2024 10:32-0500 Diastolic blood pressure 65 mm[Hg] Yelitzasmiley Zambrano DO Work Phone: [facility] 11-16-2024 10:32-0500 Heart rate 70 /min Yelitza Zambrano DO Work Phone: [facility] 11-16-2024 10:32-0500 Respiratory rate 16 /min Yelitzanadia Zambrano DO Work Phone: [facility] 11-16-2024 10:32-0500 SaO2% (BldA) [Mass fraction] 100 % Yelitza Zambrano DO Work Phone: [facility] 11-16-2024 10:32-0500 Systolic blood pressure 108 mm[Hg] Yelitza Zambrano DO Work Phone: [facility] 11-16-2024 08:43-0500 Body height 165.1 cm Yelitza Zambrano DO Work Phone: [facility] 11-16-2024 08:43-0500 Body weight 58.96 kg Yelitza Zambrano DO Work Phone: [facility] 10-11-2024 09:10-0500 Blood Pressure Location Emile Pedro [facility] 10-11-2024 09:10-0500 Body temperature 98.6 [degF] Emile Pedro [facility] 10-11-2024 09:10-0500 Diastolic blood pressure 64 mm[Hg] Emile Reisey [facility] 10-11-2024 09:10-0500 Heart rate 58 /min Emile Pedro [facility] 10-11-2024 09:10-0500 SaO2% (BldA) [Mass fraction] 99 % Emile Fryepsey [facility] 10-11-2024 09:10-0500 Systolic blood pressure 110 mm[Hg] Emile Pedro [facility] 09-01-2024 10:22-0500 Body height 165.1 cm Yelitza Zambrano DO Work Phone: [facility] 09-01-2024 10:22-0500 Body mass index (BMI) [Ratio] 22.1 kg/m2 Yelitza Zambrano DO Work Phone: [facility] 09-01-2024 10:22-0500 Body temperature 98.6 [degF] Yelitza Ruedaers DO Work Phone: [facility] 09-01-2024 10:22-0500 Body weight 60.32 kg Yelitza Zambrano DO Work Phone: [facility] 09-01-2024 10:22-0500 Diastolic blood pressure 68 mm[Hg] Yelitza Zambrano DO Work Phone: [facility] 09-01-2024 10:22-0500 Heart rate 71 /min Yelitza Zambrano DO Work Phone: [facility] 09-01-2024 10:22-0500 SaO2% (BldA) [Mass fraction] 98 % Yelitza Zambrano DO Work Phone: [facility] 09-01-2024 10:22-0500 Systolic blood pressure 110 mm[Hg] Yelitza Zambrano DO Work Phone: [facility] 11-11-2023 09:06-0500 Diastolic blood pressure 68 mm[Hg] MD Melina Krueger Work Phone: [facility] 11-11-2023 09:06-0500 Heart rate 65 /min MD Melina Krueger Work Phone: [facility] 11-11-2023 09:06-0500 Respiratory rate 16 /min MD Melina Krueger Work Phone: [facility] 11-11-2023 09:06-0500 SaO2% (BldA) [Mass fraction] 98 % MD Melina Krueger Work Phone: [facility] 11-11-2023 09:06-0500 Systolic blood pressure 120 mm[Hg] MD Melina Krueger Work Phone: [facility] 11-11-2023 07:18-0500 Body height 165.1 cm MD Melina Krueger Work Phone: [facility] 01-22-2024 07:18-0500 Body weight 58.96 kg MD Melina Krueger Work Phone: [facility] 02-19-2023 15:22-0400 Diastolic blood pressure 68 mm[Hg] Tayo [facility] 02-19-2023 15:22-0400 Heart rate 62 /min Tayo [facility] 02-19-2023 15:22-0400 Systolic blood pressure 128 mm[Hg] Tayonelson [facility] 02-08-2023 12:29-0400 Blood Pressure Location Tayonelson [facility] 02-08-2023 12:29-0400 Diastolic blood pressure 70 mm[Hg] Tayo [facility] 02-08-2023 12:29-0400 Heart rate 80 /min Tayo [facility] 02-08-2023 12:29-0400 Respiratory rate 16 /min Tayo [facility] 02-08-2023 12:29-0400 Systolic blood pressure 120 mm[Hg] Tayo [facility] Encounters Encounter Date Encounter Type Care Provider Facility Start: 12-03-2024 ambulatory Juan Carlos Andres - [facility] Facili ty:[facility] Start: 11-25-2024 End: 11-25-2024 Patient encounter procedure Yelitza Zambrano DO Work Phone: [facility] [address] Work Phone: Start: 11-25-2024 End: 11-25-2024 ambulatory Yelizta B Zambrano DO Work Phone: [facility] Work Phone: Start: 11-25-2024 Registered Recurring Yelitza rios DO Work Phone: [facility] [place] Work Phone: Start: 11-16-2024 Non-patient / Non-visit Yelitza Zambrano DO Work Phone: [facility] Work Phone: Start: 11-16-2024 Non-patient / Non-visit Yelitza Zambrano DO Work Phone: [facility] Work Phone: Start: 11-16-2024 End: 11-16-2024 Admission to same day surgery center Yelitza Zambrano DO Work Phone: [facility] Work Phone: Start: 11-16-2024 End: 11-16-2024 ambulatory Yelitza Zambrano DO Work Phone: [facility] Work Phone: Start: 11-11-2024 End: 11-11-2024 Patient encounter procedure Yelitza Zambrano DO Work Phone: [facility] [place] Work Phone: Start: 11-11-2024 End: 11-11-2024 ambulatory Yelitzanadia Ruedaers DO Work Phone: [facility] Work Phone: Start: 11-11-2024 End: 11-11-2024 ambulatory Yelitza B Zambrano DO Work Phone: [facility] Work Phone: Start: 11-11-2024 End: 11-11-2024 Patient encounter procedure Yelitza Zambrano DO Work Phone: [facility] [address] Work Phone: Start: 11-02-2024 End: 11-02-2024 ambulatory Yelitza Ruedaers DO Work Phone: [facility] Work Phone: Start: 11-02-2024 End: 11-02-2024 Patient encounter procedure Yelitza Ruedaers DO Work Phone: [facility] [address] Work Phone: Start: 10-28-2024 End: 10-28-2024 ambulatory Yelitza Ruedaers DO Work Phone: [facility] Work Phone: Start: 10-28-2024 End: 10-28-2024 Patient encounter procedure Yelitzanadia Ruedaers DO Work Phone: [facility] [address] Work Phone: Start: 10-11-2024 End: 10-11-2024 ambulatory Emile Vasquez Facility:[facility] Start: 10-11-2024 End: 10-11-2024 Patient encounter procedure Emile Vasquez [facility] Start: 09-01-2024 End: 09-01-2024 ambulatory Yelitza Zambrano DO Work Phone: [facility] Work Phone: Start: 09-01-2024 End: 09-01-2024 Encounter for general adult medical examination without abnormal findings Yelitza Ruedaers DO Work Phone: [facility] Start: 09-01-2024 End: 09-01-2024 Patient encounter procedure Yelitzanadia Ruedaers DO Work Phone[facility] Work Phone: Start: 08-24-2024 End: 08-24-2024 Patient encounter procedure DO Yelitzanadia Zambrano Work Phone: [facility] [place] Work Phone: Start: 08-24-2024 End: 08-24-2024 ambulatory DO Yelitza Zambrano Work Phone: [facility] Work Phone: Start: 08-24-2024 Encounter for genera l adult medical examination without abnormal findings Yelitza Zambrano [facility] Start: 12-17-2023 End: 12-17-2023 Lab Drop off SHRUTHI SANCHEZ [facility] Start: 12-17-2023 End: 12-17-2023 ambulatory PA-C SHRUTHI SANCHEZ Facility:[facility] Start: 12-17-2023 End: 12-17-2023 Patient encounter procedure SHRUTHI SANCHEZ [facility] Start: 12-02-2023 ambulatory Tayo Rucker ty:ONEIL [facility]ling Start: 11-11-2023 Non-patient / Non-visit MD Melina Krueger Work Phone: [facility] Work Phone: Start: 10-29-2023 End: 10-29-2023 ambulatory [facility] Start: 09-18-2023 End: 09-18-2023 ambulatory MD Melina Krueger Work Phone: [facility] Work Phone: Start: 09-18-2023 End: 09-18-2023 Patient encounter procedure MD Melina Krueger Work Phone: [facility] Work Phone: Start: 09-02-2023 Encounter for genera l adult medical examination without abnormal findings Yelitza Zambrano [facility] Start: 09-02-2023 Telephone encounter Yelitza Zambrano [facility] Start: 09-02-2023 End: 09-02-2023 ambulatory MD Melina Krueger Work Phone: [facility] Work Phone: Start: 09-02-2023 End: 09-02-2023 Patient encounter procedure MD Melina Krueger Work Phone: [facility] Work Phone: Start: 08-29-2023 End: 08-29-2023 Patient encounter procedure MD Melina Krueger Work Phone: [facility] Work Phone: Start: 08-20-2023 End: 08-20-2023 ambulatory [facility] Start: 07-05-2023 End: 07-05-2023 Lab Drop off Tayo SOSA [facility] Start: 07-01-2023 End: 07-01-2023 [facility] Start: 06-05-2023 End: 06-05-2023 Lab Drop off Tayo SOSA [facility] Start: 03-03-2023 End: 03-03-2023 Lab Drop off Tayo SOSA [facility] Start: 02-20-2023 End: 02-20-2023 Patient encounter procedure Tayo SOSA [facility] Start: 02-19-2023 End: 02-19-2023 Lab Drop off Tayo SOSA [facility] Start: 02-19-2023 End: 02-19-2023 Patient encounter procedure Tayo SOSA [facility] Start: 02-08-2023 End: 02-08-[address] TAYO SOSA . Facility: Start: 02-08-2023 End: 02-08-2023 Patient encounter procedure Tayo SOSA [facility] Start: 02-08-2023 End: 02-08-2023 Patient encounter procedure Tayo SOSA [facility] Procedures Date Procedure Procedure Detail Performing Clinician Start: 11-16-2024 Colonoscopy Yelitzasmiley bonner DO Work Phone: Start: 11-11-2024 Duplex scan of lower limb veins Yelitza Zambrano DO Work Phone: Start: 10-28-2024 Plain X-ray of left femur Yelitza Zambrano DO Work Phone: Start: 09-18-2023 Screening mammograph y of bilateral breasts MD Melina Krueger Work Phone: Start: 05-31-2016 Cysto, right JJ sten t , ESWL right renal calculus Tayo SOSA Start: 12-10-2013 Cystoscopy Tayo RAMIREZ Start: 10-25-2011 Lithotripsy using laser Tayo SOSA Start: 02-02-2011 Cystoscopic removal of ureteric stent Tayo SOSA Start: 01-25-2011 Extracorporeal shock wave lithotripsy of calculus of kidney Tayo SOSA Breast biopsy and re lated procedures Tayo SOSA Comment on above: left Cystoscopy Tayo SOSA excision of knee cyst Kanargelia SOSA Ligation of fallopian tube P atrick WILLIE Ligation of fallopian tube Tubal ligation Tayonelson SOSA lumbar laminectomy L%-S1 Shirley SOSA Tonsillectomy Tonsillectomy Tayonelson MUÑIZ S Tonsillectomy and adenoidectomy Tayonelson SOSA Plan of Treatment Date Care Activity Detail Author Start: 12-21-2024 ambulatory Ambulatory Facility:[facility] Start: 11-16-2024 [facility] Start: 11-11-2024 Duplex scan of lower limb veins US venous duplex LE LT [facility] Start: 11-11-2024 US Lower extremity v ein - left [facility] Start: 11-11-2023 [facility] MG Breast - bilatera l Screening [facility] Patient Education [facility] Work Phone: Immunizations Immunization Date Immunization Notes Care Provider [facility] SARS-CoV-2 (COVID-19 ) [id number] Tayonelson SOSA [facility] 09-19-2021 SARS-CoV-2 (COVID-19 ) mRNA-1273 vaccine Tayo SOSA [facility] 01-24-2021 SARS-CoV-2 (COVID-19 ) mRNA-1273 vaccine Tayo SOSA [facility] 12-27-2020 SARS-CoV-2 (COVID-19 ) mRNA-1273 vaccine Tayo SOSA [facility] 06-21-2015 tetanus toxoid, reduced diphtheria toxoid, and acellular pertussis vaccine, adsorbed Tayo SOSA [facility] NEGATED: Highlighted row has not occurred!12-17-2023 influenza virus vaccine, unspecified formulation SHRUTHI SANCHEZ [facility] Payers Date Payer Category Payer Unknown [id number] 2024 Unknown [id number] 2024 Self-pay 1960 Unknown [id number] 2.16.84 [id number] 1960 Unknown [id number] 2.16.8 [id number] 1960 Unknown [id number] 2.16.8 [id number] 1960 Unknown [id number] 2.16.8 [id number] 1960 Unknown [id number] 2.16.8 [id number] 1960 Unknown [id number] 2.16.8 [id number] 1960 Unknown [id number] 2.16.8 [id number] 1959 Unknown [id number] Unknown [facility] [id number] Unknown [id number] 2.16.8 [id number] Unknown [id number] 2.16.8 [id number] Unknown [id number] 2.16.8 [id number] Unknown [id number] 2.16.8 [id number] Unknown [id number] 2.16.8 [id number] Unknown [id number] 2.16.8 [id number] Unknown [id number] 2.16.8 [id number] Unknown [id number] 2.16.8 [id number] Social History Date Type Detail Facility Start: 02-08-2023 End: 10-11-2024 Tobacco smoking status Heavy tobacco smoker (finding) [facility] Sex Assigned At Female [facility] Start: 11-11-2023 End: 11-16-2024 Tobacco smoking status Smoker (finding) [facility] Tobacco smoking status Never [facility] Start: 1960 Sex Assigned At Female F [facility] Start: 09-01-2024 End: 2024 Sex Female (finding) [facility] Goals Date Patient Goal Desired Activity /State Functional Status Date Assessment Result Facility 10-11-2024 Functional Status N/A [facility] 12-17-2023 Functional Status N/A [facility] 02-19-2023 Functional Status N/A [facility] 02-08-2023 Functional Status N/A [facility] Clinical Notes 02-07-2023 to 11-16-2024 Note Date & Type Note Facility 11-16-2024 Procedure note [facility] enter 11-16-2024 History and physi azucena note [facility] enter 10-11-2024 Hospital Discharge instructions Patient Education 10/11/2024 09:34:54 Otitis Media With Effusion, Adult Otitis Media With Effusion, Adult Otitis media with effusion (OME) is inflammation and fluid (effusion) in the middle ear without having an ear infection. The middle ear is the space behind the eardrum. The middle ear is connected to the back of the throat by a narrow tube (eustachian tube). Normally the eustachian tube drains fluid out of the middle ear. A swollen eustachian tube can become blocked and cause fluid to collect in the middle ear. OME often goes away without treatment. Sometimes OME can lead to hearing problems and recurrent acute ear infections (acute otitis media). These conditions may require treatment. What are the causes? OME is caused by a blocked eustachian tube. This can result from: Allergies. Upper respiratory infections. Enlarged adenoids. The adenoids are areas of soft tissue located high in the back of the throat, behind the nose and the roof of the mouth. They are part of the body's natural defense system (immune system). Rapid changes in pressure, like when an airplane is descending or during scuba diving. In some cases, the cause of this condition is not known. What are the signs or symptoms? Common symptoms of this condition include: A feeling of fullness in your ear. Decreased hearing in the affected ear. Fluid draining into the ear canal. Pain in the ear. In some cases, there are no symptoms. How is this diagnosed? A health care provider can diagnose OME based on signs and symptoms of the condition. Your provider will also do a physical exam to check for fluid behind the eardrum. During the exam, your health care provider will use an instrument called an otoscope to look in your ear. Your health care provider may do other tests, such as: A hearing test. A tympanogram. This is a test that shows how well the eardrum moves in response to air pressure in the ear canal. It provides a graph for your health care provider to review. A pneumatic otoscopy. This is a test to check how your eardrum moves in response to changes in pressure. It is done by squeezing a small amount of air into the ear. How is this treated? Treatment for OME depends on the cause of the condition and the severity of symptoms. The first step is often waiting to see if the fluid drains on its own in a few weeks. Home care treatment may include: Ismc-qry-tmwyyqf pain relievers. A warm, moist cloth placed over the ear. Severe cases may require a procedure to insert tubes in the ears (tympanostomy tubes) to drain the fluid. Follow these instructions at home: Take yawn-slg-zjoiftk and prescription medicines only as told by your health care provider. Keep all follow-up visits. Contact a health care provider if: You have pain that gets worse. Hearing in your affected ear gets worse. You have fluid draining from your ear canal. You have dizziness. You develop a fever. Get help right away if: You develop a severe headache. You completely lose hearing in the affected ear. You have bleeding from your ear canal. You have sudden and severe pain in your ear. These symptoms may represent a serious problem that is an emergency. Do not wait to see if the symptoms will go away. Get medical help right away. Call your local emergency services (911 in the [place] Do not drive yourself to the hospital. Summary Otitis media with effusion (OME) is inflammation and fluid (effusion) in the middle ear without having an ear infection. A swollen eustachian tube can become blocked and cause fluid to collect in the middle ear. Treatment for OME depends on the cause of the condition and the severity of symptoms. Many times, treatment is not needed because the fluid drains on its own in a few weeks. Sometimes OME can lead to hearing problems and recurrent acute ear infections (acute otitis media), which may require treatment. This information is not intended to replace advice given to you by your health care provider. Make sure you discuss any questions you have with your health care provider. Document Revised: 02/01/2022 Document Reviewed: 02/01/2022 [employer] Patient Education 2023 [employer] Follow Up Care 10/11/2024 09:04:10 With:YELITZA ZAMBRANO DO Address: [address] [place] [address] When: Unknown [facility] 10-11-2024 Note Patient Education ENT Otitis Media With Effusion, Adult Otitis media with effusion (OME) is inflammation and fluid (effusion) in the middle ear without having an ear infection. The middle ear is the space behind the eardrum. The middle ear is connected to the back of the throat by a narrow tube (eustachian tube). Normally the eustachian tube drains fluid out of the middle ear. A swollen eustachian tube can become blocked and cause fluid to collect in the middle ear. OME often goes away without treatment. Sometimes OME can lead to hearing problems and recurrent acute ear infections (acute otitis media). These conditions may require treatment. What are the causes? OME is caused by a blocked eustachian tube. This can result from: ??? Allergies. ??? Upper respiratory infections. ??? Enlarged adenoids. The adenoids are areas of soft tissue located high in the back of the throat, behind the nose and the roof of the mouth. They are part of the body's natural defense system (immune system). ??? Rapid changes in pressure, like when an airplane is descending or during scuba diving. In some cases, the cause of this condition is not known. What are the signs or symptoms? Common symptoms of this condition include: ??? A feeling of fullness in your ear. ??? Decreased hearing in the affected ear. ??? Fluid draining into the ear canal. ??? Pain in the ear. In some cases, there are no symptoms. How is this diagnosed? A health care provider can diagnose OME based on signs and symptoms of the condition. Your provider will also do a physical exam to check for fluid behind the eardrum. During the exam, your health care provider will use an instrument called an otoscope to look in your ear. Your health care provider may do other tests, such as: ??? A hearing test. ??? A tympanogram. This is a test that shows how well the eardrum moves in response to air pressure in the ear canal. It provides a graph for your health care provider to review. ??? A pneumatic otoscopy. This is a test to check how your eardrum moves in response to changes in pressure. It is done by squeezing a small amount of air into the ear. How is this treated? Treatment for OME depends on the cause of the condition and the severity of symptoms. The first step is often waiting to see if the fluid drains on its own in a few weeks. Home care treatment may include: ??? Mofd-otd-mhdfqeq pain relievers. ??? A warm, moist cloth placed over the ear. Severe cases may require a procedure to insert tubes in the ears (tympanostomy tubes) to drain the fluid. Follow these instructions at home: ??? Take bymz-oem-nqiewoo and prescription medicines only as told by your health care provider. ??? Keep all follow-up visits. Contact a health care provider if: ??? You have pain that gets worse. ??? Hearing in your affected ear gets worse. ??? You have fluid draining from your ear canal. ??? You have dizziness. ??? You develop a fever. Get help right away if: ??? You develop a severe headache. ??? You completely lose hearing in the affected ear. ??? You have bleeding from your ear canal. ??? You have sudden and severe pain in your ear. These symptoms may represent a serious problem that is an emergency. Do not wait to see if the symptoms will go away. Get medical help right away. Call your local emergency services (911 in the [place] Do not drive yourself to the hospital. Summary ??? Otitis media with effusion (OME) is inflammation and fluid (effusion) in the middle ear without having an ear infection. ??? A swollen eustachian tube can become blocked and cause fluid to collect in the middle ear. ??? Treatment for OME depends on the cause of the condition and the severity of symptoms. ??? Many times, treatment is not needed because the fluid drains on its own in a few weeks. ??? Sometimes OME can lead to hearing problems and recurrent acute ear infections (acute otitis media), which may require treatment. This information is not intended to replace advice given to you by your health care provider. Make sure you discuss any questions you have with your health care provider. Document Revised: 02/01/2022 Document Reviewed: 02/01/2022 [employer] Patient Education ? 2023 [employer] [facility] 09-01-2024 Evaluation note Diagnosis Onset Date Resolution Hyperlipidemia acute August 212023 10:20am Prediabetes acute August 10:20am Tobacco abuse acute September 012023 10:20am Wellness examination noneactive Yue romero 2023 10:20am [facility] Work Phone: 1(391) 954-274102-27-2024 Hospital Discharge instructions Patient Education 12/17/2023 15:10:23 Dietary Guidelines to Help Prevent Kidney Stones Dietary Guidelines to Help Prevent Kidney Stones Kidney stones are deposits of minerals and salts that form inside your kidneys. Your risk of developing kidney stones may be greater depending on your diet, your lifestyle, the medicines you take, and whether you have certain medical conditions. Most people can lower their risks of developing kidney stones by following these dietary guidelines. Your dietitian may give you more specific instructions depending on your overall health and the type of kidney stones you tend to develop. What are tips for following this plan? Reading food labels Choose foods with no salt added or low-salt labels. Limit your salt (sodium) intake to less than 1,500 mg a day. Choose foods with calcium for each meal and snack. Try to eat about 300 mg of calcium at each meal.Foods that contain 200 500 mg of calcium a serving include: ?8 oz (237 mL) of milk, gjinnqb-tkhndbyhuhlb-qmijb milk, and calcium- fortifiedfruit juice. Calcium-fortified means that calcium has been added to these drinks. ?8 oz (237 mL) of kefir, yogurt, and soy yogurt. ?4 oz (114 g) of tofu. ?1 oz (28 g) of cheese. ?1 cup (150 g) of dried figs. ?1 cup (91 g) of cooked broccoli. ?One 3 oz (85 g) can of sardines or mackerel. Most people need 1,000 1,500 mg of calcium a day. Talk to your dietitian about how much calcium is recommended for you. Shopping Buy plenty of fresh fruits and vegetables. Most people do not need to avoid fruits and vegetables, even if these foods contain nutrients that may contribute to kidney stones. When shopping for convenience foods, choose: ?Whole pieces of fruit. ?Pre-made salads with dressing on the side. ?Low-fat fruit and yogurt smoothies. Avoid buying frozen meals or prepared deli foods. These can be high in sodium. Look for foods with live cultures, such as yogurt and kefir. Choose high-fiber grains, such as whole-wheat breads, oat bran, and wheat cereals. Cooking Do not add salt to food when cooking. Place a salt shaker on the table and allow each person to addtheir own salt to taste. Use vegetable protein, such as beans, textured vegetable protein (TVP), or tofu, instead of meat inpasta, casseroles, and soups. Meal planning Eat less salt, if told by your dietitian. To do this: ?Avoid eating processed or pre-made food. ?Avoid eating fast food. Eat less animal protein, including cheese, meat, poultry, or fish, if told by your dietitian. To dothis: ?Limit the number of times you have meat, poultry, fish, or cheese each week. Eat a diet free of meat at least 2 days a week. ?Eat only one serving each day of meat, poultry, fish, or seafood. ?When you prepare animal proteins, cut pieces into small portion sizes. For most meat and fish, oneserving is about the size of the palm of your hand. Eat at least five servings of fresh fruits and vegetables each day. To do this: ?Keep fruits and vegetables on hand for snacks. ?Eat one piece of fruit or a handful of berries with breakfast. ?Have a salad and fruit at lunch. ?Have two kinds of vegetables at dinner. You may be told to limit foods that are high in a substance called oxalate. These include: ?Spinach (cooked), rhubarb, beets, sweet potatoes, and Brazilian chard. ?Peanuts. ?Potato chips, [place] fries, and baked potatoes with skin on. ?Nuts and nut products. ?Chocolate. If you regularly take a diuretic medicine, make sure to eat at least 1 or 2 servings of fruits or vegetables that are high in potassium each day. These include: ?Avocado. ?Banana. ?[place], prune, carrot, or tomato juice. ?Baked potato. ?Cabbage. ?Beans and split peas. Lifestyle Drink enough fluid to keep your urine pale yellow. This is the most important thing you can do. Spread your fluid intake throughout the day. If you drink alcohol: ?Limit how much you have to: ?0 1 drink a day for women who are not . ?0 2 drinks a day for men. ?Know how much alcohol is in your drink. In the [place] one drink equals one 12 oz bottle of beer (355 mL), one 5 oz glass of wine (148 mL), or one 1 oz glass of hard liquor (44 mL). Lose weight if told by your health care provider. Work with your dietitian to find an eating plan and weight loss strategies that work best for you. General information Talk to your health care provider and dietitian about taking daily supplements. Depending on your health and the cause of your kidney stones, you may be told: ?Do not take high-dose supplements of vitamin C (1,000 mg a day or more). ?To take a calcium supplement. ?To take a daily probiotic supplement. ?To take other supplements such as magnesium, fish oil, or vitamin B6. Take jmse-yde-ampeopd and prescription medicines only as told by your health care provider. These include supplements. What foods should I limit? Limit your intake of the following foods, or eat them as told by your dietitian. Vegetables Spinach. Rhubarb. Beets. Canned vegetables. Pickles. Olives. Baked potatoes with skin. Grains Wheat bran. Baked goods. Salted crackers. Cereals high in sugar. Meats and other proteins Nuts. Nut butters. Large portions of meat, poultry, or fish. Salted, precooked, or cured meats, such as sausages, meat loaves, and hot dogs. Dairy Cheeses. Beverages Regular soft drinks. Regular vegetable juice. Seasonings and condiments Seasoning blends with salt. Salad dressings. Soy sauce. Ketchup. Barbecue sauce. Other foods Canned soups. Canned pasta sauce. Casseroles. Pizza. Lasagna. Frozen meals. Potato chips. [place] fries. The items listed above may not be a complete list of foods and beverages you should limit. Contact a dietitian for more information. What foods should I avoid? Talk to your dietitian about specific foods you should avoid based on the type of kidney stones youhave and your overall health. Fruits Grapefruit. The item listed above may not be a complete list of foods and beverages you should avoid. Contact adietitian for more information. Summary Kidney stones are deposits of minerals and salts that form inside your kidneys. You can lower your risk of kidney stones by making changes to your diet. The most important thing you can do is drink enough fluid. Drink enough fluid to keep your urine pale yellow. Talk to your dietitian about how much calcium you should have each day, and eat less salt and animal protein as told by your dietitian. This information is not intended to replace advice given to you by your health care provider. Make sure you discuss any questions you have with your health care provider. Document Revised: 01/17/2023 Document Reviewed: 01/17/2023 [employer] Patient Education 2022 [employer] Follow Up Care 11/29/2023 14:14:09 With:THEODORE KERN SHRUTHI Talavera, URL Address: 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 year old with past medical history of Kidney stones, NSVT in setting of lithotripsy. Patient was recently seen in clinic as she was referred to us for NSVT. 06/20/2023 she was undergoing lithotripsy under general anesthesia by Dr. Sosa when she developed a brief run of ventricular tachycardia at the [facility]. Tachycardia reportedly began after putting 3 shocks to her kidney stone and patient developed PVCs and a brief run of V. tach. The procedure was stopped patient was given IV lidocaine and tachycardia resolved and the procedure was restarted. The patient was bradycardic and hypotensive following the administration of lidocaine. She was discharged with 30-day event monitor. She was seen by Kimberli DIXON and 30d event monitor and stress test was done. No strips to review from when she had an SVT but per patient's spouse she was told that Dr. Sosa told her as a very short episode, yet they still administered lidocaine 30-day event monitor 06/2023 does not show any PVCs or ventricular ectopy, she does have PACs which accounted for 1% or less of beats otherwise event monitor was unremarkable for any arrhythmia Patient has never had any symptoms of the past chest pain, shortness of breath, SOTELO, LE edema, palpitations, lightness, dizziness, syncope, presyncope. Functional capacity is good, she works at [employer] and lifts a lot of heavy packages She continues to smoke and we spent time talking about quitting. nuclear stress test done on 09/24/2023 exercise treadmill stress test for VT done on 09/23/2023 PMH: Past Medical History: Diagnosis Date Abnormal ECG Arrhythmia Kidney stones NSVT (nonsustained ventricular tachycardia) ([facility]) PSH: Past Surgical History: Procedure Laterality Date BACK SURGERY LITHOTRIPSY TUBAL LIGATION SH: Social Determinants of Health Tobacco Use: High Risk (08/20/2023) Patient History Smoking Tobacco Use: Every Day Smokeless Tobacco Use: Never Passive Exposure: Not on file Alcohol Use: Not on file Financial Resource Strain: Not on file Food Insecurity: Not on file Transportation Needs: Not on file Physical Activity: Not on file Stress: Not on file Social Connections: Not on file Intimate Partner Violence: Not on file Depression: Not on file Housing Stability: Not on file Utilities: Not on file Allergies: No Known Allergies Weight: 61.2kg Visit Vitals BP 110/70 (BP Location: Left arm, Patient Position: Sitting) Pulse 62 Ht 1.651 m (5' 5 ) Wt 61.2 kg (135 lb) SpO2 99% BMI 22.47 kg/m??? Smoking Status Every Day BSA 1.68 m??? Meds: Current Outpatient Medications on File Prior to Visit Medication Sig Dispense Refill calcium citrate (Calcitrate) 200 mg (950 mg) tablet Take 1 tablet by mouth in the morning. wcnid-di-2-dov-aki-fkbnzll-ast (krill oil) 1,427-282-92-80 mg capsule Take by mouth. vitamin D3-folic acid 125 mcg (5,000 unit)-1 mg tablet Take by mouth in the morning. No current facility-administered medications on file prior to visit. ROS: Review of Systems Musculoskeletal: Positive for arthritis, back pain and joint pain. All other systems reviewed and are negative. Physical Exam: Constitutional General Appearance: well-nourished, well-developed, appears stated age Level of Distress: comfortable Psychiatric Mental Status: alert, normal affect Orientation: oriented to time, place, and person Insight: good judgement Eyes Lids and Conjunctivae: non-injected, no xanthelasma ENMT Ears: no lesions on external ear Nose: no lesions on external nose Oropharynx: no cyanosis, no pallor Neck Neck: supple, trachea midline Carotid Arteries: bilateral normal upstroke, no bruits Jugular Veins: normal jugular venous pressure Thyroid: not enlarged Lungs Respiratory Effort: unlabored Chest Exam: normal curvature, no thoracic deformity Auscultation: clear, no wheezing, no rales, no rhonchi Cardiovascular Rate And Rhythm: regular Heart Sounds: normal S1, normal s2, no gallop Systolic Murmur: not heard Diastolic Murmur: not heard Extremities: no cyanosis, no edema, no peripheral signs of emboli Peripheral Pulses Radial Pulse: normal Abdomen Inspection and Palpation: soft, non distended, no bruit, non tender Musculoskeletal Inspection: no joint swelling Neurologic Gait: normal gait Skin Inspection and Palpation: warm and dry Nails: no clubbing Labs: 06/13/2023 CBC unremarkable, sodium 137, K4.4, chloride 99, BUN 27, creatinine 0.92, GFR greater than 60, calcium 9.8, glucose 87 EKG: No results found for this or any previous visit (from the past 4464 hour(s)). Echo: 06/20/23 TTE Stress test: Coronary angiogram: @CATH@ Diagnostic Imaging: Urology note discussing NSVT 05/2023 Assessment and Plan: NSVT (nonsustaine (more content not included)...[facility]11-13-2023 Evaluation note* Encounter Date Diagnosis Assessment Notes Treatment Notes Treatment Clinical Notes Aug, Laboratory exam ordered as part of routine general medical examination (ICD-10 - Z00.00) Aug, Hyperlipidemia (ICD-10 - E78.5) Aug, Prediabetes (ICD-10 - R73.03) [employer] Other 10-31-2023 Note-none noted on event monitor -[facility]-NSVT noted during lithotripsy with anesthesia, was given lidocaine -PVC noted preceding NSVT -given PVC induced NSVT will order treadmill stress test to rule out ischemia and to see if exercise stress will induced P[facility] NotePatient here for follow up event monitor per Sergio Gamble CNP. Test was ordered for NSVT. Sees new PCP soon. Still denies chest pain, SOB, palpitations, and lightheadedness/syncope. Review of Systems Musculoskeletal: Positive for joint swelling. 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 year old with past medical history of Kidney stones, NSVT in setting of lithotripsy. Patient was recently seen in clinic as she was referred to us for NSVT. 06/20/2023 she was undergoing lithotripsy under general anesthesia by Dr. Sosa when she developed a brief run of ventricular tachycardia at the [facility]. Tachycardia reportedly began after putting 3 shocks to her kidney stone and patient developed PVCs and a brief run of V. tach. The procedure was stopped patient was given IV lidocaine and tachycardia resolved and the procedure was restarted. The patient was bradycardic and hypotensive following the administration of lidocaine. She was discharged with 30-day event monitor. I have no strips to review from when she had an SVT but per patient's spouse she was told that Dr. Sosa told her as a very short episode, yet they still administered lidocaine 30-day event monitor 06/2023 does not show any PVCs or ventricular ectopy, she does have PACs which accounted for 1% or less of beats otherwise event monitor was unremarkable for any arrhythmia Patient has never had any symptoms of the past chest pain, shortness of breath, SOTELO, LE edema, palpitations, lightness, dizziness, syncope, presyncope I discussed with her although this could have been situational to anesthesia and the stress of the lithotripsy it is still unusual to see a PVC induced NSVT in any setting. functional capacity is good, she works at [employer] and lifts a lot of heavy packages but when asked if her heart rate increases during work she states on her smart watch she never notices it go up, so I discussed with her treadmill stress test will be needed to monitor ECG under stress PMH: Past Medical History: Diagnosis Date Abnormal ECG Arrhythmia Kidney stones NSVT (nonsustained ventricular tachycardia) (CMS/HCC) PSH: Past Surgical History: Procedure Laterality Date BACK SURGERY LITHOTRIPSY TUBAL LIGATION SH: Social Determinants of Health Tobacco Use: High Risk (08/20/2023) Patient History Smoking Tobacco Use: Every Day Smokeless Tobacco Use: Never Passive Exposure: Not on file Alcohol Use: Not on file Financial Resource Strain: Not on file Food Insecurity: Not on file Transportation Needs: Not on file Physical Activity: Not on file Stress: Not on file Social Connections: Not on file Intimate Partner Violence: Not on file Depression: Not on file Housing Stability: Not on file Allergies: No Known Allergies Weight: 61.2kg Visit Vitals BP 116/70 (BP Location: Left arm, Patient Position: Sitting) Pulse 62 Ht 1.651 m (5' 5 ) Wt 61.2 kg (135 lb) SpO2 98% BMI 22.47 kg/m??? Smoking Status Every Day BSA 1.68 m??? Meds: Current Outpatient Medications on File Prior to Visit Medication Sig Dispense Refill calcium citrate (Calcitrate) 200 mg (950 mg) tablet Take 1 tablet by mouth in the morning. tsdmz-en-2-xjc-dnt-yplttib-ast (krill oil) 1,296-029-80-80 mg capsule Take by mouth. vitamin D3-folic acid 125 mcg (5,000 unit)-1 mg tablet Take by mouth in the morning. No current facility-administered medications on file prior to visit. ROS: Cardio Basic Cardiovascular Symptoms: no lightheadedness, no leg edema, no syncope, no orthopnea, no PND, no claudication, Constitutional Constitutional: no fever, no night sweats, no significant weight gain, no significant weight loss, no exercise intolerance Eyes Eyes: no dry eyes, no irritation, no vision change ENMT Ears: no difficulty hearing, no ear pain Nose: no frequent nosebleeds, Mouth/Throat: no sore throat, no bleeding gums, no snoring, no dry mouth, no mouth ulcers, no oral abnormalities, no teeth problems Respiratory Respiratory: no cough, no wheezing, no coughing up blood, no sleep apnea Musculoskeletal Musculoskeletal: no muscle aches, no muscle weakness, joint pain+, no back pain, no swelling in the extremities Integumentary Skin no rash, no ulcer, no varicosities, no discoloration, no pruritus Neurologic Neurologic: no loss of consciousness, no weakness, no numbness, no seizures, no dizziness, no headaches Psychiatric Psych: no depression, feeling safe in relationship, no alcohol abuse, Hematologic/Lymphatic Hematologic/Lymphatic no swollen glands, no bruising Physical Exam: Constitutional General Appearance: well-nourished, well-developed, appears stated age Level of Distress: comfortable Psychiatric Mental Status: alert, normal affect Orientation: oriented to time, place, and person Insight: good judgement Eyes Lids and Conjunctivae: non-injected, no xanthelasma ENMT Ears: no lesions on external ear Nose: no lesions on external nose Oropharynx: no cyanosis, no pallor Neck Neck: supple, trachea midline Ca (more content not included)...[facility]09-11-2023 NotePatient here for follow up [facility]. She was there for lithotripsy with Dr. Sosa. Per anesthesia, she developed PVC's and brief run of VT. The procedure was stopped and she was given lidocaine. The VT stopped so they resumed procedure. She was seen by Dr. Leyva in the PACU. Patient was kept overnight for observation. She denies chest pain and SOB. Only feels palpitations once in a blue urbina . Review of Systems All other systems reviewed and are negative.[facility] 07-01-2023 NoteCardiology Clinic Note Subjective Sheyla Hogan is a 62 y.o. year old female patient with past medical history of kidney stones and nonsustained ventricular tachycardia in setting of lithotripsy. There is no problem list on file for this patient. Family History Problem Relation Name Age of Onset Other (pacemaker) Father Social History Tobacco Use Smoking status: Every Day Packs/day: 1.00 Types: Cigarettes Smokeless tobacco: Never Substance Use Topics Alcohol use: Not Currently HPI 62-year-old female with past medical history of recurrent kidney stones. She was undergoing ESWL under general anesthesia by Dr. Sosa on 06/20/2023 when she developed a brief run of ventricular tachycardia at [facility]. Tachycardia reportedly began after applying 3 shocks to the stone, patient developed PVCs and a brief run of ventricular tachycardia, the procedure was stopped and patient was given IV lidocaine. Tachycardia resolved and the procedure was restarted, patient however became bradycardic and hypotensive following event. Cardiology was consulted to evaluate patient inpatient. Patient was recommended labs to rule out electrolyte abnormalities, trend troponins to rule out ischemia, and discharged on a 30-day event monitor. Update: 07/01/2023 She is here today with Keshav Feels well, no chest pain or palpitations Reports she is here to obtain a monitor Review of Systems Cardiovascular: Negative for chest pain, claudication, dyspnea on exertion, irregular heartbeat, leg swelling, near-syncope, orthopnea, palpitations, paroxysmal nocturnal dyspnea and syncope. Objective Visit Vitals BP 119/73 (BP Location: Left arm, Patient Position: Sitting) Pulse 60 Ht 1.651 m (5' 5 ) Wt 59.4 kg (131 lb) SpO2 99% BMI 21.80 kg/m??? Smoking Status Every Day BSA 1.65 m??? Physical Exam General: Awake, alert, NAD Neck: No elevated JVP. No carotid bruit Pulm: Breath sounds clear to ascultation bilaterally with no wheeze, crackles or rhonchi Cards: Regular rate and rhythm, S1, S2. No S3 or S4 gallop. Murmur: none Extr: Lower extremity edema: none. DP pulses:2+ Skin: warm, dry, well perfused Neuro: A&Ox3, No gross deficits Allergies No Known Allergies Medications Current Outpatient Medications: calcium citrate (Calcitrate) 200 mg (950 mg) tablet, Take 1 tablet by mouth in the morning., Disp: , Rfl: ycbpp-gs-1-zyz-qze-gysgdel-ast (krill oil) 1,033-391-92-80 mg capsule, Take by mouth., Disp: , Rfl: vitamin D3-folic acid 125 mcg (5,000 unit)-1 mg tablet, Take by mouth in the morning., Disp: , Rfl: Recent Labs 06/21/2023 WBC 12.4, Hgb 12.8, HCT 38.7, platelets 253 Sodium 140, potassium 4, chloride 108, CO2 28.9, BUN 21, serum creatinine 0.68, estimated GFR greater than 60%, AST 20, ALT 24 TSH 0.247 (0.358-3.740) Imaging and other tests Echocardiogram: 06/20/2023 Left ventricle: Normal chamber size. Left ventricular wall thickness is normal. Normal systolic function. LVEF 55%. Normal diastolic function. Left atrium: Normal chamber size Right atrium: Mild dilatation Right ventricle: Normal chamber size. Normal right ventricular systolic function Tricuspid valve: Normal mobility and thickness. No stenosis with trivial regurgitation. No evidence of pulmonary pretension. RVSP 33 mmHg. Mitral valve: Mildly thickened with normal mobility. No evidence of mitral valve stenosis. There is no mitral annular calcification. Trivial regurgitation. Aortic valve: Normal trileaflet appearance. No visible sclerosis. Normal leaflet mobility. No evidence of aortic stenosis. No aortic regurgitation. Aortic root: Normal diameter and appearance. Pulmonic valve: Normal thickness and mobility. No stenosis. No regurgitation. Pericardium: No evidence of pericardial effusion IVC: Pressure collapse with inspirations. IVC is normal in size Assessment Diagnoses and all orders for this visit: NSVT (nonsustained ventricular tachycardia) (CMS/HCC) - Magnesium; Future - Cardiac event monitor; Future Abnormal thyroid blood test Plan Non-sustained ventricular tachycardia -Rhythm strips are unavailable. I reviewed her echo which showed a preserved LVEF without significant chamber/valvular abnormalities. She had cardiac enzymes trended (high sensitive troponin x2) during hospitalization which were negative, in absence of symptoms concerning for angina, will deter further ischemic evaluation at this time. -She did not have a magnesium level during hospitalization, she is agreeable to obtaining this today. Will also proceed with event monitor recommended during hospitalization and plan for follow-up with EP. 2. Abnormal thyroid levels -I reinforced need to find and establish care with a PCP for further evaluation and management. Follow up in about 6 weeks (around 08/12/2023). Sergio Gamble APRN-[facility] Evaluation + Plan note Diagnostic Tests Pending * Urine Culture 06/05/23 Future Scheduled Tests Laboratory* Electrolyte Panel 06/05/23 [facility]05-02-2023 Hospital Discharge instructions Patient Education 02/19/2023 15:31:34 Kidney Stones, Pcjt-mb-Pfpy Kidney Stones Kidney stones are rock-like masses that form inside of the kidneys. Kidneys are organs that make pee (urine). A kidney stone may move into other parts of the urinary tract, including: The tubes that connect the kidneys to the bladder (ureters). The bladder. The tube that carries urine out of the body (urethra). Kidney stones can cause very bad pain and can block the flow of pee. The stone usually leaves your body (passes) through your pee. You may need to have a doctor take out the stone. What are the causes? Kidney stones may be caused by: A condition in which certain glands make too much parathyroid hormone (primary hyperparathyroidism). A buildup of a type of crystals in the bladder made of a chemical called uric acid. The body makes uric acid when you eat certain foods. Narrowing (stricture) of one or both of the ureters. A kidney blockage that you were born with. Past surgery on the kidney or the ureters, such as gastric bypass surgery. What increases the risk? You are more likely to develop this condition if: You have had a kidney stone in the past. You have a family history of kidney stones. You do not drink enough water. You eat a diet that is high in protein, salt (sodium), or sugar. You are overweight or very overweight (obese). What are the signs or symptoms? Symptoms of a kidney stone may include: Pain in the side of the belly, right below the ribs (flank pain). Pain usually spreads (radiates) to the groin. Needing to pee often or right away (urgently). Pain when going pee (urinating). Blood in your pee (hematuria). Feeling like you may vomit (nauseous). Vomiting. Fever and chills. How is this treated? Treatment depends on the size, location, and makeup of the kidney stones. The stones will often pass out of the body through peeing. You may need to: Drink more fluid to help pass the stone. In some cases, you may be given fluids through an IV tube put into one of your veins at the hospital. Take medicine for pain. Make changes in your diet to help keep kidney stones from coming back. Sometimes, medical procedures are needed to remove a kidney stone. This may involve: A procedure to break up kidney stones using a beam of light (laser) or shock waves. Surgery to remove the kidney stones. Follow these instructions at home: Medicines Take errf-bke-hwuqowh and prescription medicines only as told by your doctor. Ask your doctor if the medicine prescribed to you requires you to avoid driving or using heavy machinery. Eating and drinking Drink enough fluid to keep your pee pale yellow. You may be told to drink at least 8 10 glasses of water each day. This will help you pass the stone. If told by your doctor, change your diet. This may include: ?Limiting how much salt you eat. ?Eating more fruits and vegetables. ?Limiting how much meat, poultry, fish, and eggs you eat. Follow instructions from your doctor about eating or drinking restrictions. General instructions Collect pee samples as told by your doctor. You may need to collect a pee sample: ?24 hours after a stone comes out. ?8 12 weeks after a stone comes out, and every 6 12 months after that. Strain your pee every time you pee (urinate), for as long as told. Use the strainer that your doctor recommends. Do not throw out the stone. Keep it so that it can be tested by your doctor. Keep all follow-up visits as told by your doctor. This is important. You may need follow-up tests. How is this prevented? To prevent another kidney stone: Drink enough fluid to keep your pee pale yellow. This is the best way to prevent kidney stones. Eat healthy foods. Avoid certain foods as told by your doctor. You may be told to eat less protein. Stay at a healthy weight. Where to find more information National Kidney Foundation (NKF): www.kidney.org [facility] (UCF): www.urologyhealth.org Contact a doctor if: You have pain that gets worse or does not get better with medicine. Get help right away if: You have a fever or chills. You get very bad pain. You get new pain in your belly (abdomen). You pass out (faint). You cannot pee. Summary Kidney stones are rock-like masses that form inside of the kidneys. Kidney stones can cause very bad pain and can block the flow of pee. The stones will often pass out of the body through peeing. Drink enough fluid to keep your pee pale yellow. This information is not intended to replace advice given to you by your health care provider. Make sure you discuss any questions you have with your health care provider. Document Revised: 06/11/2022 Document Reviewed: 06/11/2022 [employer] Patient Education 2022 [employer] Follow Up Care 02/14/2023 16:05:10 With:WILLIE QUISPE, Tayo Pearl, URL Address: [facility] [address] , [place] [address]- [id number] When:05/22/2023 Comments:Metabolic work-up [facility] 04-21-2023 NoteOP Note OPERATION DATE: 02/08/2023 PREOPERATIVE DIAGNOSIS: Right ureteral calculus. POSTOPERATIVE DIAGNOSIS: Right ureteral calculus. PROCEDURE: 1. Cystoscopy. 2. Right rigid ureteral dilation. 3. Right ureteroscopy. 4. Holmium laser lithotripsy of 7-8 mm right ureteral calculus. 5. Stone basket extraction. 6. Placement of 6-Namibian variable length right ureteral stent. ANESTHESIA: General by LMA by . COMPLICATIONS: None. INDICATIONS: Sheyla is a 62-year-old lady with a 7-8 mm proximal right ureteral calculus that she has been unable to pass. She now presents for cysto, right stent placement and possible definitive ureteroscopic stone manipulation. She has signed an informed consent for these procedures after risks have been explained. PROCEDURE: Patient was brought to the operating room and placed on the operating room table in the supine position. SCDs were placed on her lower extremities and turned on and functioning during the entire case. Time out was done by all parties in the room. We all agreed upon the patient's identification and the planned procedures for this patient. General anesthesia was then administered via LMA. She was then repositioned into the modified dorsolithotomy position. All pressure points were satisfactorily padded. Genitalia were sterilely prepped and draped in the usual fashion. I started by passing a 22-Namibian Olympus cystoscope per urethra and into the bladder. Careful dillon endoscopy in the bladder showed no evidence of any tumors or stones. While using fluoroscopy, I could see her ureteral stone at the L2-3 level. There was also an ipsilateral renal stone at the lower pole noted. I then passed a Glidewire through the scope and cannulated the left ureter, and was able to get the wire up to the stone. It buckled numerous times but then eventually went proximal to the stone and into the kidney. I then used an 8 and 10-Namibian rigid dilator to dilate the distal ureter. The scope was removed. I then passed a Navigator 09/02 ureteral access sheath over the wire and up the ureter, further dilating it. I passed this up to the L5 level and removed the stylette and the wire. I then passed the Dornier disposable flexible ureteroscope through the access sheath and then into the ureter, and ascended up to the stone. The stone had multiple jagged ends on it. The ureter in this region, for 2 cm, was flame red and very friable. I then passed a 200 angstrom holmium laser fiber through the scope and made contact with the stone. Laser lithotripsy was started at 6 [place] continuously. I was able to easily fragment the stone into several pieces. I then passed a Zero-Tip Nitinol basket and engaged pieces and extracted them down and out. These were sent for stone analysis. I went up and down the ureter numerous times until all of the stone pieces were removed. The ureteroscope was then removed. I then passed a Glidewire through the access sheath, into the kidney and removed the access sheath. I then backloaded the cystoscope over the wire and passed it into the bladder. I then passed a 6-Namibian variable length Bard ureteral stent over the wire, up into the right kidney. The wire was removed and there were good curls in the kidney and in the bladder. The bladder was drained of its contents, and the scope was then removed. She was then transferred to a gurney bed and wheeled to PACU in stable condition.[id number] Hospital Discharge instructions Patient Education 02/07/2023 16:04:23 Dietary Guidelines to Help Prevent Kidney Stones Dietary Guidelines to Help Prevent Kidney Stones Kidney stones are deposits of minerals and salts that form inside your kidneys. Your risk of developing kidney stones may be greater depending on your diet, your lifestyle, the medicines you take, and whether you have certain medical conditions. Most people can lower their chances of developing kidney stones by following the instructions below. Your dietitian may give you more specific instructions depending on your overall health and the type of kidney stones you tend to develop. What are tips for following this plan? Reading food labels Choose foods with no salt added or low-salt labels. Limit your salt (sodium) intake to less than 1,500 mg a day. Choose foods with calcium for each meal and snack. Try to eat about 300 mg of calcium at each meal.Foods that contain 200 500 mg of calcium a serving include: ?8 oz (237 mL) of milk, ityiwsx-tnxtcvuglvlt-julns milk, and calcium- fortifiedfruit juice. Calcium-fortified means that calcium has been added to these drinks. ?8 oz (237 mL) of kefir, yogurt, and soy yogurt. ?4 oz (114 g) of tofu. ?1 oz (28 g) of cheese. ?1 cup (150 g) of dried figs. ?1 cup (91 g) of cooked broccoli. ?One 3 oz (85 g) can of sardines or mackerel. Most people need 1,000 1,500 mg of calcium a day. Talk to your dietitian about how much calcium is recommended for you. Shopping Buy plenty of fresh fruits and vegetables. Most people do not need to avoid fruits and vegetables, even if these foods contain nutrients that may contribute to kidney stones. When shopping for convenience foods, choose: ?Whole pieces of fruit. ?Pre-made salads with dressing on the side. ?Low-fat fruit and yogurt smoothies. Avoid buying frozen meals or prepared deli foods. These can be high in sodium. Look for foods with live cultures, such as yogurt and kefir. Choose high-fiber grains, such as whole-wheat breads, oat bran, and wheat cereals. Cooking Do not add salt to food when cooking. Place a salt shaker on the table and allow each person to addhis or her own salt to taste. Use vegetable protein, such as beans, textured vegetable protein (TVP), or tofu, instead of meat inpasta, casseroles, and soups. Meal planning Eat less salt, if told by your dietitian. To do this: ?Avoid eating processed or pre-made food. ?Avoid eating fast food. Eat less animal protein, including cheese, meat, poultry, or fish, if told by your dietitian. To dothis: ?Limit the number of times you have meat, poultry, fish, or cheese each week. Eat a diet free of meat at least 2 days a week. ?Eat only one serving each day of meat, poultry, fish, or seafood. ?When you prepare animal protein, cut pieces into small portion sizes. For most meat and fish, one serving is about the size of the palm of your hand. Eat at least five servings of fresh fruits and vegetables each day. To do this: ?Keep fruits and vegetables on hand for snacks. ?Eat one piece of fruit or a handful of berries with breakfast. ?Have a salad and fruit at lunch. ?Have two kinds of vegetables at dinner. Limit foods that are high in a substance called oxalate. These include: ?Spinach (cooked), rhubarb, beets, sweet potatoes, and Brazilian chard. ?Peanuts. ?Potato chips, s[place] leone[place] fries, and baked potatoes with skin on. ?Nuts and nut products. ?Chocolate. If you regularly take a diuretic medicine, make sure to eat at least 1 or 2 servings of fruits or vegetables that are high in potassium each day. These include: ?Avocado. ?Banana. ?[place], prune, carrot, or tomato juice. ?Baked potato. ?Cabbage. ?Beans and split peas. Lifestyle Drink enough fluid to keep your urine pale yellow. This is the most important thing you can do. Spread your fluid intake throughout the day. If you drink alcohol: ?Limit how much you use to: ?0 1 drink a day for women who are not . ?0 2 drinks a day for men. ?Be aware of how much alcohol is in your drink. In the [place] one drink equals one 12 oz bottle of beer (355 mL), one 5 oz glass of wine (148 mL), or one 1 oz glass of hard liquor (44 mL). Lose weight if told by your health care provider. Work with your dietitian to find an eating plan and weight loss strategies that work best for you. General information Talk to your health care provider and dietitian about taking daily supplements. You may be told thefollowing depending on your health and the cause of your kidney stones: ?Not to take supplements with vitamin C. ?To take a calcium supplement. ?To take a daily probiotic supplement. ?To take other supplements such as magnesium, fish oil, or vitamin B6. Take qtua-lfi-paivnnz and prescription medicines only as told by your health care provider. These include supplements. What foods should I limit? Limit your intake of the following foods, or eat them as told by your dietitian. Vegetables Spinach. Rhubarb. Beets. Canned vegetables. Pickles. Olives. Baked potatoes with skin. Grains Wheat bran. Baked goods. Salted crackers. Cereals high in sugar. Meats and other proteins Nuts. Nut butters. Large portions of meat, poultry, or fish. Salted, precooked, or cured meats, such as sausages, meat loaves, and hot dogs. Dairy Cheese. Beverages Regular soft drinks. Regular vegetable juice. Seasonings and condiments Seasoning blends with salt. Salad dressings. Soy sauce. Ketchup. Barbecue sauce. Other foods Canned soups. Canned pasta sauce. Casseroles. Pizza. Lasagna. Frozen meals. Potato chips. [place]ibian fries. The items listed above may not be a complete list of foods and beverages you should limit. Contact a dietitian for more information. What foods should I avoid? Talk to your dietitian about specific foods you should avoid based on the type of kidney stones youhave and your overall health. Fruits Grapefruit. The item listed above may not be a complete list of foods and beverages you should avoid. Contact adietitian for more information. Summary Kidney stones are deposits of minerals and salts that form inside your kidneys. You can lower your risk of kidney stones by making changes to your diet. The most important thing you can do is drink enough fluid. Drink enough fluid to keep your urine pale yellow. Talk to your dietitian about how much calcium you should have each day, and eat less salt and animal protein as told by your dietitian. This information is not intended to replace advice given to you by your health care provider. Make sure you discuss any questions you have with your health care provider. Document Revised: 06/18/2022 Document Reviewed: 06/18/2022 [employer] Patient Education 2022 [employer] Follow Up Care 02/06/2023 15:08:54 With:Tayo SOSA MD, URL Address: [facility] [address], [place] [address]- When: Unknown [facility] evaluation + Plan note No data available for this section [facility] evaluation + Plan note Future Appointments Appointment Date:06/05/2023 10:15:00 AM Scheduled Provider:Tayo SOSA MD Location:[facility] Appointment Type:URO Office Visit [facility] Evaluation + Plan note Future Appointments Appointment Date:06/05/2023 10:15:00 AM Scheduled Provider:Tayo SOSA MD Location:[facility] Appointment Type:URO Office Visit Diagnostic Tests Pending * [facility] App[facility]ments Appointment Date:06/05/2023 10:15:00 AM Scheduled Provider:Tayo SOSA MD [facility] Type:[facility]O Office Visit Diagnostic Tests Pending * PTH Intact [facility] Future Appointments Appointment Date:06/05/2023 10:15:00 AM Scheduled Provider:Tayo SOSA MD [facility] Type:URO Office Visit Diagnostic Tests Pending * Calcium Level 24 Hour Urine 03/03/23 * Oxalate 24 Hour Urine 03/03/23 * Citrate Level 24 Hour Urine 03/03/23 * Uric Acid 24 Hour Urine 03/03/23 * Phosphorus Level 24 Hour Urine 03/03/23 * Magnesium Level 24 Hour Urine [facility]03[facility] Future Appointments Appointment Date:12/02/2023 11:15:00 AM Scheduled Provider:Tayo SOSA MD Location:[facility] Appointment Type:URO Office Visit Diagnostic Tests Pending * Calculi Analysis Urinary 07/05/23 Future Scheduled Tests Laboratory* Electrolyte Panel 06/05/23 Radiology* XR Abdomen 1 [facility]01[facility] Future Appointments Appointment Date:12/21/2024 09:15:00 AM Scheduled Provider:Tay[facility] SOSA [facility] Type:[facility]O Office Visit Future Scheduled Tests Laboratory* Electrolyte Panel 06/05/23 Radiology* XR Abdomen 1 View 10/21/24 * US Renal 10/21/24 [facility] evaluation + Plan note Future Appointments Appointment Date:12/21/2024 09:15:00 AM Scheduled Provider:Tayo SOSA MD [facility] Type:URO Office Visit Diagnostic Tests Pending * Urine Culture 12/17/23 Future Scheduled Tests Laboratory* Electrolyte Panel 06/05/23 Radiology* XR Abdomen 1 View 10/21/24 * US Renal [facility] Future Appointments Appointment Date:12/21/2024 09:15:00 AM Scheduled Provider:Tayo SOSA MD Location:[facility] Appointment Type:URO Office Visit Future Scheduled Tests Radiology* XR Abdomen 1 View 10/21/24 * US Renal 10/21/24 [facility] Evaluation noteNo assessment information available [facility] Work Phone: Evaluation note* Diagnosis Onset Date Resolution Status Admit Date Hyperlipidemia acute August 212023 10:20am Prediabetes acute August 10:20am Tobacco abuse acute September 012023 10:20am Wellness examination noneactive Nove mber 2023 10:20am [facility] Work Phone: History and physical note Author Pedro Tomlin [facility] Note Date/Time November 16, 2024 9 :47am [facility] [address] [place] [address] Gastroenterology H&P Signed Patient: Sheyla Hogan MR#: [id number] : 1960 Acct:[id number] Age/Sex: 63 / F Adm Date: 5 Loc: Room: Type: [facility] Attending Dr: Pedro Tomlin MD Copies to: MD Yelitza Kasper, ~ Date of Service: 11/16/2024 HISTORY & PHYSICAL: Patient's history with special attention to the cardiovascular, pulmonary systems and the current problem was reviewed with the patient immediately prior to the procedure. Present medications and doses reviewed in the EMR. Allergies and pertinent laboratory tests were also reviewedat this time in the EMR. The physical examination, as below, was then performed. 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 Family history of GI malignancy? no PHYSICAL EXAMINATION Mouth and Pharynx : moist mucus membranes, normal dentition Eyes: EOM intact b/l, normal sclera Pulmonary: normal respiratory effort, able to speak in complete sentences Neurological: alert and oriented x3, moves all extremities Skin: non-jaundiced, warm and dry Abdomen: non-distended, normal to inspection Psych: Mental status and mood grossly normal REVIEW OF SYSTEMS Constitutional: Denies malaise, fevers Cardiovascular: Denies chest pain, palpitations Respiratory: Denies shortness of breath, wheezing Gastrointestinal: Per HPI Genitourinary: Denies dysuria, polyuria Musculoskeletal: Denies joint swelling, joint stiffness Neurological: Denies numbness, tingling Integumentary: Denies rashes, skin lesions Endocrine: Denies fatigue, weight loss Written informed consent obtained from the patient. Risks (including but not limited to perforation, infection, bloating, bleeding, need for emergent surgeryand loss of life), benefits and alternatives explained and questions answered. The patient verbalized understanding. Based on history patient is an appropriate candidate for the procedure. Pedro Tomlin MD Documented By: Pedro Tomlin MD 11/16/2446 Signed By: <Electronically signed by Pedro Tomlin MD> 11/16/24 0966 [facility] Work Phone: History general Narrative - Reported* Type Description Date Medical History Arthritis - type?? R A dx when younger, then in question Medical History kidney stones Medical History Brief run of vtach d uring anesthesia for lithotripsy - 2022 Surgical History lithotripsy 2010 Surgical History tubal ligation 1990 Surgical History laminectomy L5-S1 1992 Surgical History Nodules removed from left knee - benign (rheumatoid nodules?) 2004 Surgical History tonsillectomy childhood Surgical History [facility] - benign 05/2014 Surgical History lithotripsy 06-20-23 Hospitalization History Kidney stones 2010 Hospitalization History kidney stones (b rief episode of vtach during lithotripsy so kept for observation) 05/2023 [facility] Discharge instructions No data available for this section [facility] Additional Instructions DISCHARGE INSTRUCTIONS FOR COLONOSCOPY WHAT TO EXPECT: - You may feel full, gassy or cramping after your procedure. In some cases, this may be from a few hours to a day. Walking may help relieve the discomfort. - If you have polyp(s) removed you may note some minor bloody discharge after your first bowel movements. - You should begin to recover from anesthesia within 1 hour of the procedure, however may feel groggy for the next 24 hours. DO's AND DON'Ts: - Call your doctor right away if you have a hard abdomen, severe pain, are passing lots of bright red blood or clots. - Call your doctor if you develop any rashes, hives or difficulty breathing. - Let your doctor know if you have not had a bowel movement by 3 days after your procedure. - If you take 81 mg aspirin for your heart it is safe to resume this medication. - If you take other blood thinner medications your doctor will instruct you when these can safely be resumed. - Do NOT drive for 24 hours. - Do NOT operate machinery such as power tools, lawn mowers, snow blowers, sewing machines, etc. for 24 hours. - Avoid alcoholic beverages and drugs for allergies, nerves, or sleep. - Do NOT stay alone. Do NOT leave your child unattended. - Do NOT make important personal or business decisions or sign any legal documents. - Eat solid foods and drink liquids in smaller amounts than usual until normal appetite returns. If you should experience an upset stomach, liquids high in sugar content (soda, Asael-Aid, non-acid juices) are recommended. - You can resume normal activities tomorrow. FOLLOW UP & RECOMMENDATIONS: -Follow-up with the GI office as needed. -Notify the doctor if you have any problems. -Repeat colonoscopy in 1 years. -Follow up with PCP. -Office number [phone].[facility] Work Phone: Progress note No data available for this section [facility] Summary Purpose Family History No Family History Records Found Relationship Condition Age at Onset Recorded Date/T [place] father Heart problem Unknown Calculus of kidney Unknown Not Specified Arthritis Unknown sister Malignant neoplasm of breast Unknown Relationship Condition Age at Onset Recorded Date/T [place] father Heart problem Unknown Calculus of kidney Unknown mother Arthritis Unknown sister Malignant neoplasm of breast Unknown father Family history of kidney stones Unknown Heart disease Unknown sister Malignant neoplasm Unknown Family history of other condition Unknown Relationship Condition Age at Onset Recorded Date/T [place] father Calculus of kidney Unknown Heart disease Unknown mother Arthritis Unknown sister Malignant neoplasm of breast Unknown Advance Directives No Advanced Directives Records Found Advance Directive Response Recorded Date/ Time Advance Directives No August 10:14am Advance Directive Response Recorded Date/ Time Advance Directives No August 3:15pm Chief Complaint and Reason for Visit Chief Complaint Z00.00 E78.5 Screening Chief Complaint Establish Care Z00.00 E78.5 Screening Screening Chief Complaint Admit Date E78.5 R73.03 Z00.August 24, 2024 6 :31am wellness September 01, 2024 10:20am Reason for Visit Admit Date Hyperlipidemia September 01, 2024 10:20am Prediabetes September 01, 2024 10:20am Tobacco abuse September 01, 2024 10:20am Wellness examination September 01, 2024 10:20am Chief Complaint Admit Date E78.5 R73.03 Z00.August 24, 2024 6 :31am wellness September 01, 2024 10:20am [facility] October 28, 2024 8: 46am Chief Complaint Admit Date E78.5 R73.03 Z00.August 24, 2024 6 :31am wellness September 01, 2024 10:20am S70.12XA October 28, 2024 8: 46am S70.12XA November 02, 2024 2 :00pm Chief Complaint Admit Date E78.5 R73.03 Z00.August 24, 2024 6 :31am wellness September 01, 2024 10:20am S70.12XA October 28, 2024 8: 46am S70.12XA November 02, 2024 2 :00pm contusion of left thigh November 11 12:38pm Chief Complaint Admit Date E78.5 R73.03 Z00.August 24, 2024 6 :31am wellness September 01, 2024 10:20am S70.12XA October 28, 2024 8: 46am S70.12XA November 02, 2024 2 :00pm contusion of left thigh November 11 12:38pm hx of colon polyps November 16, 2024 8 :30am hx of colon polyps November 16, 2024 9 :46am Chief Complaint Admit Date E78.5 R73.03 Z00.August 24, 2024 6 :31am wellness September 01, 2024 10:20am S70.12XA October 28, 2024 8: 46am S70.12XA November 02, 2024 2 :00pm S70.12XA November 11, 2024 1 0:30am contusion of left thigh November 11 12:38pm hx of colon polyps November 16, 2024 8 :30am hx of colon polyps November 16, 2024 9 :46am Amb Documentation November 16, 2024 4 :13pm Chief Complaint Admit Date wellness September 01, 2024 10:20am S70.12XA October 28, 2024 8: 46am S70.12XA November 02, 2024 2 :00pm S70.12XA November 11, 2024 1 0:30am contusion of left thigh November 11 12:38pm hx of colon polyps November 16, 2024 8 :30am hx of colon polyps November 16, 2024 9 :46am Amb Documentation November 16, 2024 4 :13pm L thigh November 25, 2024 1 0:30am S70.12XA November 25, 2024 1 1:44am Additional Source Comments INFORMATION SOURCE (unrecogn ized section and content) DATE CREATED AUTHOR 02/18/2023 [facility] DATE CREATED AUTHOR AUTHOR'S ORGANIZ ATION 10/30/2023 [facility] DATE CREATED AUTHOR AUTHOR'S ORGANIZ ATION 11/28/[address] [facility] DATE CREATED AUTHOR AUTHOR'S ORGANIZ ATION 12/05/2024 [facility] Care Teams (unrecognized sec tion and content) Personnel Name: YELITZA ZAMBRANO DO Address: Address: [address] [place] [address] Name: Shruthi Arthur Eli Team Status: Active Member Role Status Dates Yelitza Zambrano DO Primary Care Provider Active Team Status: Inactive Member Role Status Dates Melina Krueger MD Primary Care Provider Active Yelitza Zambrano DO Attending Provider Active Goals (unrecognized section and content) Goals may be documented in a n alternate section REASON FOR VISIT (unrecogniz ed section and content) lab results FOR RECORDS PERTAINING TO PATIENTS WHO ARE OR HAVE BEEN ENROLLED IN A CHEMICAL DEPENDENCY/SUBSTANCEABUSE PROGRAM, SOME INFORMATION MAY BE OMITTED. This clinical summary was aggregated from multiple sources. Caution should be exercised in using it in the provision of clinical care. This summary normalizes information from multiple sources, and as a consequence, information in this document may materially change the coding, format and clinical context of patient data. In addition, data may be omitted in some cases. CLINICAL DECISIONS SHOULD BE BASED ON THE PRIMARY CLINICAL RECORDS. [facility] [employer] [facility] provides no warranty or guarantee of the accuracy or completeness of information in this document.
== END 2024-12-07 07:07 | disposition home or self-care (01) ==
LOC: US 07:06
PROVIDERS: PCP Student in an Organized Health Care Education/Training Program; Visit Provider Physician Assistant
DX: N20.0 Calculus of kidney (principal)
CPT/HCPCS: 74018; 76775